=== PATIENT | female | born 1945 | race Caucasian/White ===

== ENCOUNTER 2024-06-21 11:01 | Inpatient (IN) | payer MEDICARE ==
--- NOTE | 2024-06-21 11:13 | ERPHSYRPT ---
- History of Present Illness Time Seen by Provider: 06/21/24 11:13 Source: patient, EMS Exam Limitations: no limitations Patient Subjective Stated Complaint: PT states "I have not felt well since friday and I am just getting weaker and weaker. I get short of breath when I walk." Triage Nursing Assessment: Pt presnted alert and oriented X 3, skin pwd. PT able to speak in clear full sentences. Pt resting comfortably on the bed without any apparent respiratory distress. Physician History: This is a 78-year-old white female patient who arrives by the flight operation coordinator service secondary to generalized weakness and shortness of breath on exertion. Her primary care physician is listed as Dr. Hodge. The records state that the patient has no known drug allergies and she is not taking any medications. Patient denies chest pain. She states that she has had generalized weakness and "not feeling well" x 2 days. She has no abdominal pain. She has had no nausea vomiting or diarrhea symptoms. She denies cough. She denies fever. Patient's initial twelve-lead EKG shows atrial fibrillation with RVR. This is a new diagnosis for her. Timing/Duration: day(s) (2), worse Severity: moderate Associated Symptoms: shortness of breath, weakness (Generalized), No nausea, No vomiting, No abdominal pain, No cough (With exertion), No chest pain, No fever Allergies/Adverse Reactions: No Known Drug Allergies Allergy (Verified 06/21/24 11:12) Home Medications: No Reportable Medications [No Reported Medications] 06/21/24 [History] Hx Tetanus, Diphtheria Vaccination/Date Given: No Hx Influenza Vaccination/Date Given: Yes Hx Pneumococcal Vaccination/Date Given: No Immunizations Up to Date: No Travel Risk - International Travel Have you traveled outside of the country in past 3 weeks: No - Emerging Infectious Disease Are you exhibiting symptoms associated with any current EIDs: No - Review of Systems Constitutional: Weakness (Generalized) Eyes: No Symptoms Ears, Nose, & Throat: No Symptoms Respiratory: No Symptoms Cardiac: No Symptoms Abdominal/Gastrointestinal: No Symptoms Genitourinary Symptoms: No Symptoms Musculoskeletal: No Symptoms Skin: No Symptoms Neurological: No Symptoms Psychological: No Symptoms Endocrine: No Symptoms Hematologic/Lymphatic: No Symptoms - Past Medical History Pertinent Past Medical History: Yes Neurological History: No Pertinent History ENT History: Cataracts Cardiac History: No Pertinent History Respiratory History: No Pertinent History Endocrine Medical History: No Pertinent History Musculoskeletal History: No Pertinent History GI Medical History: No Pertinent History History: No Pertinent History Psycho-Social History: No Pertinent History Female Reproductive Disorders: No Pertinent History - Past Surgical History Past Surgical History: Yes - Social History Smoking Status: Never smoker Exposure to second hand smoke: No Drug Use: none - Social Determinants of Health Will the patient participate in the screening: Declined to provide - Nursing Vital Signs Nursing Vital Signs: Initial Vital Signs Temperature 97.1 F 06/21/24 11:02 Pulse Rate 137 H 06/21/24 11:02 Respiratory Rate 20 06/21/24 11:02 Blood Pressure 114/84 06/21/24 11:02 O2 Sat by Pulse Oximetry 97 06/21/24 11:02 Pain Scale Pain Intensity 0 - Physical Exam General Appearance: mild distress, alert, anxiety Eye Exam: PERRL/EOMI, eyes nml inspection Ears, Nose, Throat Exam: normal ENT inspection, moist mucous membranes Neck Exam: normal inspection, non-tender, supple, full range of motion Respiratory Exam: normal breath sounds, lungs clear, airway intact, No chest tenderness, No respiratory distress Cardiovascular Exam: tachycardia, irregular Gastrointestinal/Abdomen Exam: soft, normal bowel sounds, No tenderness Pelvic Exam: not done Rectal Exam: not done Back Exam: normal inspection, normal range of motion, No CVA tenderness, No vertebral tenderness Extremity Exam: normal inspection, normal range of motion, pelvis stable Neurologic Exam: alert, oriented x 3, cooperative, job interviewer II-XII nml as tested, sensation nml Skin Exam: normal color, warm, dry Lymphatic Exam: No adenopathy SpO2 Interpretation: normal SpO2: 97 O2 Delivery: Nasal Cannula (2 liters oxygen via nasal cannula) - Course Nursing assessment & vital signs reviewed: Yes EKG Interpreted by Me: RATE, A-fib, Left [place] Deviation, NORMAL INTERVALS, NORMAL QRS, Other (I do not see acute ischemia. The QTc is 421. We will slow her heart rate down and repeat the twelve-lead EKG.) Ordered Tests: Active Orders 24 hr Category Date Time Status EKG-ER Only STAT Care 06/21/24 11:31 Active EKG-ER Only STAT Care 06/21/24 15:28 Active EKG-ER Only STAT Care 06/21/24 16:00 Active IV Insertion STAT Care 06/21/24 11:31 Active Pulse Oximetry (ED) STAT Care 06/21/24 11:31 Active CHEST 1 VIEW (PORTABLE) Stat Exams 06/21/24 11:32 Completed CBC W DIFF Stat Lab 06/21/24 12:25 Completed CMP Stat Lab 06/21/24 12:25 Completed CULTURE,URINE Stat Lab 06/21/24 15:49 Received LIPASE Stat Lab 06/21/24 12:25 Completed Lactic Acid Stat Lab 06/21/24 17:05 Completed MAGNESIUM Stat Lab 06/21/24 12:25 Completed Manual Differential NC Stat Lab 06/21/24 12:25 Completed NT PRO BNPII Stat Lab 06/21/24 12:25 Completed POCT GLUCOSE Stat Lab 06/21/24 15:46 Completed PROTIME WITH INR Stat Lab 06/21/24 12:25 Completed TROPONIN Q4H Lab 06/21/24 12:25 Completed TROPONIN Q4H Lab 06/21/24 17:00 Completed TROPONIN Q4H Lab 06/21/24 20:45 Ordered UA W/RFX UR CULTURE Stat Lab 06/21/24 15:49 Completed Medication Summary Generic Name Dose Route Start Last Admin Trade Name Freq PRN Reason Stop Dose Admin Diltiazem HCl 100 mls @ 5 mls/hr 06/21/24 12:11 06/21/24 13:30 Cardizem Drip 100 Mg/100 Ml D5w IV 07/21/24 12:10 0 mg/hr .Q20H PRN 0 mls/hr HEART RATE/ A-FIB Titration Protocol 5 MG/HR Lactated Ringer's 1,000 mls @ 250 mls/hr 06/21/24 17:41 06/21/24 18:35 Lactated Ringers IV 06/21/24 21:40 250 mls/hr .Q4H ONE Administration Discontinued Medications Generic Name Dose Route Start Last Admin Trade Name Freq PRN Reason Stop Dose Admin Diltiazem HCl 15 mg 06/21/24 11:25 06/21/24 11:36 Diltiazem Hcl Iv 5 Mg/Ml Vial IV 06/21/24 11:26 15 mg STAT ONE Administration Diltiazem HCl Confirm 06/21/24 11:23 Diltiazem Hcl Iv 5 Mg/Ml Vial Administered 06/21/24 11:24 Dose 50 mg IV .STK-MED ONE Sodium Chloride 500 mls @ 250 mls/hr 06/21/24 14:53 06/21/24 18:33 Sodium Chloride 0.9% 500 Ml IV 06/21/24 16:52 Infused .Q2H ONE Infusion Sodium Chloride Confirm 06/21/24 14:56 Sodium Chloride 0.9% 500 Ml Administered 06/21/24 14:57 Dose 500 mls @ ud IV .STK-MED ONE Meropenem 1 gm/ Sodium 100 mls @ 200 mls/hr 06/21/24 16:15 06/21/24 18:33 Chloride IV 06/21/24 16:44 Infused STAT ONE Infusion Sodium Chloride Confirm 06/21/24 16:19 Sodium Chloride 100ml Mini-Bag Plus Administered 06/21/24 16:20 Dose 100 mls @ ud IV .STK-MED ONE Lactated Ringer's Confirm 06/21/24 18:33 Lactated Ringers Administered 06/21/24 18:34 Dose 1,000 mls @ ud IV .STK-MED ONE Meropenem Confirm 06/21/24 16:17 Meropenem 1 Gm Vial Administered 06/21/24 16:18 Dose 1 gm IV .STK-MED ONE Metoprolol Tartrate 5 mg 06/21/24 14:53 06/21/24 14:57 Metoprolol Tartrate 5 Mg/5 Ml Vial IV 06/21/24 14:54 5 mg STAT ONE Administration Metoprolol Tartrate Confirm 06/21/24 14:56 Metoprolol Tartrate 5 Mg/5 Ml Vial Administered 06/21/24 14:57 Dose 5 mg IV .STK-MED ONE Ondansetron HCl 4 mg 06/21/24 15:17 06/21/24 15:20 Ondansetron Hcl 4 Mg/2 Ml Vial IV 06/21/24 15:18 4 mg STAT ONE Administration Ondansetron HCl Confirm 06/21/24 15:19 Ondansetron Hcl 4 Mg/2 Ml Vial Administered 06/21/24 15:20 Dose 4 mg .ROUTE .STK-MED ONE Lab/Rad Data: Laboratory Result Diagrams 06/21/24 12:25 06/21/24 12:25 Laboratory Results 06/21/24 06/21/24 06/21/24 Range/Units 17:05 17:00 15:49 WBC (3.98-10.04) x10^3/uL RBC (3.93-5.22) x10^6/uL Hgb (11.2-15.7) g/dL Hct (34.1-44.9) % MCV (79.4-94.8) fL MCH (25.6-32.2) pg MCHC (32.2-35.5) g/dL RDW (11.7-14.4) % Plt Count (182-369) x10^3/uL MPV (9.4-12.3) fL Segmented Neutrophils (34.0-71.1) % Band Neutrophils (0.0-2.0) % Lymphocytes (Manual) (19.3-51.7) % Monocytes (Manual) (4.7-12.5) % Toxic Granulation Platelet Estimate (NORMAL) RBC Morphology Anisocytosis PT (9.4-12.5) SECONDS INR (0.8-3.0) Sodium (135-145) mmol/L Potassium (3.5-5.1) mmol/L Chloride (98-107) mmol/L Carbon Dioxide (22-30) mmol/L Anion Gap (5-15) MEQ/L BUN (7-17) mg/dL Creatinine (0.52-1.04) mg/dL Estimated GFR ML/MIN Glucose (74-106) mg/dL POC Glucometer (74 to 106) mg/dL Lactic Acid 6.6 H (0.4-2.0) Calcium (8.4-10.2) mg/dL Magnesium (1.6-2.3) mg/dL Total Bilirubin (0.2-1.3) mg/dL AST (14-36) U/L ALT (0-35) U/L Alkaline Phosphatase (38-126) U/L Troponin I 0.103 H* (0.000-0.033) ng/mL NT-Pro-B Natriuret Pep (<300) pg/mL Serum Total Protein (6.3-8.2) g/dL Albumin (3.5-5.0) g/dL Lipase (23-300) U/L Urine Color Yellow (Yellow) Urine Appearance Cloudy A (Clear) Urine pH 5.0 (4.6-8.0) Ur Specific [place] 1.025 (1.005-1.030) Urine Protein Trace A (Negative) Urine Glucose (UA) Negative (Negative) mg/dL Urine Ketones Negative (Negative) Urine Blood Trace (Negative) Urine Nitrite Negative (Negative) Urine Bilirubin Negative (Negative) Urine Urobilinogen 0.2 (0.2) mg/dL Ur Leukocyte Esterase Moderate A (Negative) U Hyaline Cast (Auto) 11-20 (0-2) /LPF Urine Microscopic RBC 6-10 A (0-5) /HPF Urine Microscopic WBC >100 A (0-5) /HPF Ur Epithelial Cells None Seen (None Seen) /HPF Urine Bacteria Few A (None Seen) /HPF Urine Culture Reflexed ORDERED SEPARATELY (NO) 06/21/24 06/21/24 06/21/24 Range/Units 15:46 12:25 12:25 WBC (3.98-10.04) x10^3/uL RBC (3.93-5.22) x10^6/uL Hgb (11.2-15.7) g/dL Hct (34.1-44.9) % MCV (79.4-94.8) fL MCH (25.6-32.2) pg MCHC (32.2-35.5) g/dL RDW (11.7-14.4) % Plt Count (182-369) x10^3/uL MPV (9.4-12.3) fL Segmented Neutrophils (34.0-71.1) % Band Neutrophils (0.0-2.0) % Lymphocytes (Manual) (19.3-51.7) % Monocytes (Manual) (4.7-12.5) % Toxic Granulation Platelet Estimate (NORMAL) RBC Morphology Anisocytosis PT 11.2 (9.4-12.5) SECONDS INR 1.03 (0.8-3.0) Sodium (135-145) mmol/L Potassium (3.5-5.1) mmol/L Chloride (98-107) mmol/L Carbon Dioxide (22-30) mmol/L Anion Gap (5-15) MEQ/L BUN (7-17) mg/dL Creatinine (0.52-1.04) mg/dL Estimated GFR ML/MIN Glucose (74-106) mg/dL POC Glucometer 138 H (74 to 106) mg/dL Lactic Acid (0.4-2.0) Calcium (8.4-10.2) mg/dL Magnesium (1.6-2.3) mg/dL Total Bilirubin (0.2-1.3) mg/dL AST (14-36) U/L ALT (0-35) U/L Alkaline Phosphatase (38-126) U/L Troponin I 0.084 H* (0.000-0.033) ng/mL NT-Pro-B Natriuret Pep (<300) pg/mL Serum Total Protein (6.3-8.2) g/dL Albumin (3.5-5.0) g/dL Lipase (23-300) U/L Urine Color (Yellow) Urine Appearance (Clear) Urine pH (4.6-8.0) Ur Specific [place] (1.005-1.030) Urine Protein (Negative) Urine Glucose (UA) (Negative) mg/dL Urine Ketones (Negative) Urine Blood (Negative) Urine Nitrite (Negative) Urine Bilirubin (Negative) Urine Urobilinogen (0.2) mg/dL Ur Leukocyte Esterase (Negative) U Hyaline Cast (Auto) (0-2) /LPF Urine Microscopic RBC (0-5) /HPF Urine Microscopic WBC (0-5) /HPF Ur Epithelial Cells (None Seen) /HPF Urine Bacteria (None Seen) /HPF Urine Culture Reflexed (NO) 06/21/24 06/21/24 Range/Units 12:25 12:25 WBC 14.9 H (3.98-10.04) x10^3/uL RBC 6.28 H (3.93-5.22) x10^6/uL Hgb 17.6 H (11.2-15.7) g/dL Hct 56.2 H (34.1-44.9) % MCV 89.5 (79.4-94.8) fL MCH 28.0 (25.6-32.2) pg MCHC 31.3 L (32.2-35.5) g/dL RDW 14.5 H (11.7-14.4) % Plt Count 240 (182-369) x10^3/uL MPV 10.6 (9.4-12.3) fL Segmented Neutrophils 86 H (34.0-71.1) % Band Neutrophils 2 (0.0-2.0) % Lymphocytes (Manual) 6 L (19.3-51.7) % Monocytes (Manual) 6 (4.7-12.5) % Toxic Granulation 1+ Platelet Estimate NORMAL (NORMAL) RBC Morphology ABNORMAL Anisocytosis 1+ PT (9.4-12.5) SECONDS INR (0.8-3.0) Sodium 135 (135-145) mmol/L Potassium 5.0 (3.5-5.1) mmol/L Chloride 104 (98-107) mmol/L Carbon Dioxide 13 L* (22-30) mmol/L Anion Gap 22.7 H (5-15) MEQ/L BUN 51 H (7-17) mg/dL Creatinine 1.06 H (0.52-1.04) mg/dL Estimated GFR 54.4 ML/MIN Glucose 149 H (74-106) mg/dL POC Glucometer (74 to 106) mg/dL Lactic Acid (0.4-2.0) Calcium 9.0 (8.4-10.2) mg/dL Magnesium 2.1 (1.6-2.3) mg/dL Total Bilirubin 0.80 (0.2-1.3) mg/dL AST 51 H (14-36) U/L ALT 32 (0-35) U/L Alkaline Phosphatase 71 (38-126) U/L Troponin I (0.000-0.033) ng/mL NT-Pro-B Natriuret Pep 1870 (<300) pg/mL Serum Total Protein 7.0 (6.3-8.2) g/dL Albumin 3.7 (3.5-5.0) g/dL Lipase 89 (23-300) U/L Urine Color (Yellow) Urine Appearance (Clear) Urine pH (4.6-8.0) Ur Specific [place] (1.005-1.030) Urine Protein (Negative) Urine Glucose (UA) (Negative) mg/dL Urine Ketones (Negative) Urine Blood (Negative) Urine Nitrite (Negative) Urine Bilirubin (Negative) Urine Urobilinogen (0.2) mg/dL Ur Leukocyte Esterase (Negative) U Hyaline Cast (Auto) (0-2) /LPF Urine Microscopic RBC (0-5) /HPF Urine Microscopic WBC (0-5) /HPF Ur Epithelial Cells (None Seen) /HPF Urine Bacteria (None Seen) /HPF Urine Culture Reflexed (NO) - Progress Progress: improved, re-examined Progress Note: 06/21/24 11:43 My medical decision making and the assignment of high complexity to this patient's medical issue today is based on review of the patient's past medical history, review of the patient's medication list, review of patient drug allergy list, history present illness and physical findings on examination. The workup in this patient includes placement of a intravenous line, infusion of Cardizem 15 mg IV bolus, CBC, CMP, magnesium level, urinalysis, twelve-lead EKG, BNP, tr oponin level and chest x-ray. Differential diagnosis includes but not limited to new onset atrial fibrillation with RVR, urinary tract infection, dehydration, electrolyte abnormalities, myocardial infarction, arrhythmia 06/21/24 15:40 I reevaluated the patient as she suddenly became diaphoretic. She continues not to have chest pain. She is not short of breath. She does feel as though she is sweaty and a little lightheaded. This seemed to occur after providing her with a low-dose Lopressor intravenously. We added that medication and decrease the Cardizem drip because, although the Cardizem bolus and drip did lower her heart rate from the 130s down to the low to mid 110s, there were spikes up to the mid 20s. The metoprolol dropped her heart rate down into the 80s to 90s. She has rate controlled atrial fibrillation at this time. However the above symptoms began. She continues not to have any chest pain. We are awaiting the troponin result. The blood pressure reading while I was in there measured 104/74. I interpreted the repeat twelve-lead EKG that was performed on 06/21/2024 at 1528. The computer reads as anterior infarct possibly acute I am not appreciating an acute ischemia in V4 V3 does not appear to have ST elevation.. We are providing this patient with an IV bolus and I will repeat the twelve-lead EKG in approximately 15 to 20 minutes. 06/21/24 16:13 I reexamined this patient and obtain more history and she did tell me that she has seen a chief catalyst operator in the past. Not for heart attack but the patient does have a history of scleroderma and she saw a chief catalyst operator because her primary care provider felt there may be an issue with her scleroderma causing some cardiac symptoms. 06/21/24 16:14 The final report of the chest x-ray was interpreted by the radiologist and I reviewed the impression. The impression states no acute cardiopulmonary process. 06/21/24 18:53 I spoke with the telemetry hospitalist, Dr. Quiros. I reviewed the patient history, presenting complaint, physical findings on examination and workup results. I also reviewed the patient clinical response to our interventions. We will admit this patient into the hospital [facility]. The patient is not requiring Cardizem or metoprolol at this time. I believe she is septic and she will require IV fluids and intravenous antibiotics. We will continue the meropenem. Her troponins are likely the result of the A-fib with RVR. The patient does not have chest pain. She has had 3 EKGs performed and the most recent twelve-lead EKG shows atrial fibrillation that is rate controlled. I interpreted that twelve-lead EKG which is her third EKG on 06/21/2024 at 1629. Her heart rate is 90 the rhythm is atrial fibrillation she has no acute ischemic changes. She has normal QRS, normal intervals and normal axis deviation with a QTc of 421. Discussed with : Darrick Counseled pt/family regarding: lab results, diagnosis, rad results Medical Desision Making - Independent Historian Additional History obtained from: [employer] Team Leader/EMT - Diagnostic Testing Diagnostic test were ordered, analyzed, and reviewed by me: Yes Radiological Interpretation: Reviewed by me, Teleradiologist Report - Risk of complications The pt has a high risk of morbidity or mortality based on: Decision regarding hospitilization or escalation of hosp level of care - Departure Departure Disposition: In-patient Admission Clinical Impression: Atrial fibrillation with RVR, Sepsis, UTI (urinary tract infection), Elevated troponin, Leukocytosis Condition: Serious Critical Care Time: Yes Critical Care Time(excluding separately billable procedures): Critical 30-74 mins (60) Referrals: DANA HODGE MD [Primary Care Provider] - Follow up/PCP as directed
[2024-06-21] MEDS ORDERED: Cardizem IV 50 MG/10 ML IV ONE (11:23)
[2024-06-21] MEDS: Cardizem IV 50 MG/10 ML IV ONE (11:36)
--- NOTE | 2024-06-21 12:05 | XRAY ---
Indication: Weakness. Comparison: None Portable chest hyperinflated and clear with incidental right base calcified granuloma. Heart not enlarged. Bony thorax intact. No acute findings.
[2024-06-21 12:40] LABS: Hematocrit 56.2 % (34.1-44.9); Hemoglobin 17.6 g/dL (11.2-15.7); Mean Cell Volume 89.5 fL (79.4-94.8); Mean Corpuscular Hgb Concent. 31.3 g/dL (32.2-35.5); Mean Platelet Volume 10.6 fL (9.4-12.3); Platelet Count 240 x10^3/uL (182-369); Red Blood Count 6.28 x10^6/uL (3.93-5.22); Red Cell Distribution Width 14.5 % (11.7-14.4); White Blood Count 14.9 x10^3/uL (3.98-10.04)
[2024-06-21] MEDS ORDERED: CARDIZEM DRIP 100 MG/100 ML D5W 100 ML IV ONE (12:42)
[2024-06-21] MEDS: CARDIZEM DRIP 100 MG/100 ML D5W 100 ML IV PRN (12:42)
[2024-06-21 12:55] LABS: INR 1.03 (0.8-3.0); PROTIME 11.2 SECONDS (9.4-12.5)
[2024-06-21 13:06] LABS: ALBUMIN 3.7 g/dL (3.5-5.0); ANION GAP 22.7 MEQ/L (5-15); BILIRUBIN,TOTAL 0.8 mg/dL (0.2-1.3); Creatinine 1 1.06 mg/dL (0.52-1.04); EST GLOMERULAR FILTRATION RATE 54.4 ML/MIN; MAGNESIUM 2.1 mg/dL (1.6-2.3)
[2024-06-21 13:09] LABS: BAND 2 % (0.0-2.0); Lymphocytes 6 % (19.3-51.7); Monocyte 6 % (4.7-12.5); Neutrophils 86 % (34.0-71.1); Total Cells Counted 100
[2024-06-21 13:10] LABS: ANISOCYTOSIS 1+; Platelet Estimate NORMAL (NORMAL); Toxic Granulation 1+
[2024-06-21] MEDS ORDERED: LOPRESSOR INJECTION IV ONE (14:56)
[2024-06-21] MEDS ORDERED: Sodium Chloride 0.9% 500 ML 500 ML IV ONE (14:56)
[2024-06-21] MEDS: LOPRESSOR INJECTION IV ONE (14:57)
[2024-06-21] MEDS: Sodium Chloride 0.9% 500 ML 500 ML IV ONE (14:57)
[2024-06-21] MEDS ORDERED: Zofran 4 MG/2 ML VIAL ONE (15:19)
[2024-06-21] MEDS: Zofran 4 MG/2 ML VIAL IV ONE (15:20)
[2024-06-21 16:12] LABS: Appearance Cloudy (Clear); Bacteria Few /HPF (None Seen); Bilirubin Negative (Negative); Blood Trace (Negative); Epithelial Cells None Seen /HPF (None Seen); Glucose, Urine Negative (Negative); Ketones Negative (Negative); Leukocyte Esterase Moderate (Negative); Nitrite Negative (Negative); Protein,Urine Dip Trace (Negative); Specific Gravity 1.025 (1.005-1.030); Urobilinogen 0.2 mg/dL (0.2); WBC >100 /HPF (0-5)
[2024-06-21] MEDS ORDERED: Merrem IV ONE ×2 (16:17→21:57)
[2024-06-21] MEDS ORDERED: Sodium Chloride 100ML MINI-BAG PLUS 100 ML IV ONE ×2 (16:19→21:59)
[2024-06-21] MEDS: Merrem 1 GM in Sodium Chloride 100ML MINI-BAG PLUS 100 ML IV ONE (16:23)
[2024-06-21] MEDS ORDERED: Lactated Ringers 1,000 ML IV ONE (18:33)
[2024-06-21] MEDS: Lactated Ringers 1,000 ML IV ONE (18:35)
[2024-06-21] MEDS ORDERED: Zofran 4 MG/2 ML VIAL IV PRN (21:12)
[2024-06-21] MEDS: Merrem 1 GM in Sodium Chloride 100ML MINI-BAG PLUS 100 ML IV SCH (22:06)
[2024-06-21] MEDS: TYLENOL 325 MG PO PRN (22:18)
[2024-06-21] MEDS: Lopressor 25MG Tab PO SCH (22:18)
[2024-06-21] MEDS: ENOXAPARIN SODIUM SQ SCH (22:19)
--- NOTE | 2024-06-21 22:24 | PCM.HP ---
History of Present Illness - Chief Complaint Chief Complaint: UTI, atrial fibrillation Date: 06/21/24 History of Present Illness: is a 78 year old female with a history of scleroderma (not currently following with a grizzlyman) and no cardiac history who presented to the ED with generalized weakness and shortness of breath on exertion for 2 days. Patient denied chest pain, abdominal pain, nausea, vomiting, diarrhea, cough, or fever. In the ED, the initial twelve-lead EKG showed atrial fibrillation with RVR which improved after administration of Cardizem. She was also found to have a UTI. She denies recent dysuria, pyuria, or hematuria. - Review of Systems Constitutional: Malaise Eyes: No Symptoms Ears, Nose, & Throat: No Symptoms Respiratory: Short Of Breath Cardiac: No Symptoms Abdominal/Gastrointestinal: No Symptoms Genitourinary Symptoms: No Symptoms Musculoskeletal: No Symptoms Skin: No Symptoms Neurological: No Symptoms Psychological: No Symptoms Endocrine: No Symptoms Hematologic/Lymphatic: No Symptoms Immunological/Allergic: No Symptoms All Other Systems: Reviewed and Negative Medications & Allergies Home Medications: Home Medication List No Reportable Medications [No Reported Medications] 06/21/24 [History Confirmed 06/21/24] Allergies/Adverse Reactions: Allergies Allergy/AdvReac Type Severity Reaction Status Date / Time No Known Drug Allergies Allergy Verified 06/21/24 11:12 - Past Medical History Past Medical History: Yes Neurological History: No Pertinent History ENT History: Cataracts Cardiac History: No Pertinent History Respiratory History: No Pertinent History Endocrine Medical History: No Pertinent History Musculoskelatal History: No Pertinent History GI Medical History: No Pertinent History History: No Pertinent History Pyscho-Social History: No Pertinent History Reproductive Disorders: No Pertinent History - Past Surgical History Past Surgical History: Yes Significant Family History: no pertinent family hx - Social History Smoking Status: Never smoker Exposure to second hand smoke: No Alcohol: None Drug Use: none - Social Determinants of Health Will the patient participate in the screening: Declined to provide - Physical Exam Vital Signs: Vital Signs - 24 hr Temp Pulse Resp BP BP Pulse Ox 06/21/24 20:01 98 H 47 H 122/74 99 06/21/24 20:00 104 H 37 H 97 06/21/24 19:50 110 H 27 H 06/21/24 19:43 112 H 25 H 122/74 99 06/21/24 19:31 106 H 23 119/71 80 L 06/21/24 19:30 111 H 24 71 L 06/21/24 19:22 107 H 38 H 06/21/24 19:10 105 H 43 H 114/93 06/21/24 19:05 97 06/21/24 19:00 118 H 40 H 138/105 76 L 06/21/24 18:50 98 H 35 H 140/97 86 L 06/21/24 18:30 96 H 28 H 105/77 82 L 06/21/24 18:20 103 H 32 H 139/96 98 06/21/24 18:10 106 H 46 H 120/98 97 06/21/24 18:00 108 H 24 134/98 99 06/21/24 17:50 98 H 25 H 125/79 91 L 06/21/24 17:40 48 H 115/92 06/21/24 17:30 28 H 129/98 98 06/21/24 17:20 17 137/78 79 L 06/21/24 17:14 26 H 128/81 67 L 06/21/24 17:11 31 H 76 L 06/21/24 17:10 26 H 85 L 06/21/24 17:00 95 H 19 06/21/24 16:53 113 H 28 H 99 06/21/24 16:40 97 H 25 H 137/117 06/21/24 16:31 84 29 H 117/60 06/21/24 16:21 94 H 21 85 L 06/21/24 16:10 87 27 H 111/81 89 L 06/21/24 16:01 91 H 28 H 129/86 96 06/21/24 15:53 85 19 113/61 74 L 06/21/24 15:51 69 23 61 L 06/21/24 15:39 72 26 H 104/74 06/21/24 15:34 67 22 06/21/24 15:31 87 23 93/66 62 L 06/21/24 15:30 102 H 20 06/21/24 15:20 83 26 H 06/21/24 15:13 76 27 H 06/21/24 15:00 71 23 129/87 100 06/21/24 14:51 119 H 24 99 06/21/24 14:50 96 H 23 82/65 99 06/21/24 14:41 126 H 18 99 06/21/24 14:39 112 H 18 113/89 100 06/21/24 14:34 125 H 33 H 99 06/21/24 14:31 116 H 21 88/69 90 L 06/21/24 14:16 119 H 22 127/83 99 06/21/24 14:00 122 H 20 98/83 98 06/21/24 13:30 129 H 22 144/87 99 06/21/24 13:01 128 H 22 97 06/21/24 12:30 121 H 22 115/91 06/21/24 12:00 111 H 29 H 113/81 76 L 06/21/24 11:53 97 06/21/24 11:41 110 H 17 95/68 98 06/21/24 11:09 116 H 25 H 114/84 96 06/21/24 11:02 97.1 F 137 H 20 114/84 97 General Appearance: no apparent distress, alert Neurologic Exam: alert, oriented x 3, cooperative, 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, normal mood/affect, nml cerebellar function Eye Exam: PERRL/EOMI, eyes nml inspection Ears, Nose, Throat Exam: normal ENT inspection Neck Exam: normal inspection, non-tender, supple, full range of motion Respiratory Exam: normal breath sounds, lungs clear, airway intact Cardiovascular Exam: irregular Gastrointestinal/Abdomen Exam: soft, normal bowel sounds Back Exam: normal range of motion Extremity Exam: normal inspection, normal range of motion Skin Exam: normal color Results - Labs Lab/Micro Results: Lab Results-Last 24 Hours 06/21/24 06/21/24 06/21/24 Range/Units 12:25 12:25 12:25 WBC 14.9 H (3.98-10.04) x10^3/uL RBC 6.28 H (3.93-5.22) x10^6/uL Hgb 17.6 H (11.2-15.7) g/dL Hct 56.2 H (34.1-44.9) % MCV 89.5 (79.4-94.8) fL MCH 28.0 (25.6-32.2) pg MCHC 31.3 L (32.2-35.5) g/dL RDW 14.5 H (11.7-14.4) % Plt Count 240 (182-369) x10^3/uL MPV 10.6 (9.4-12.3) fL Segmented Neutrophils 86 H (34.0-71.1) % Band Neutrophils 2 (0.0-2.0) % Lymphocytes (Manual) 6 L (19.3-51.7) % Monocytes (Manual) 6 (4.7-12.5) % Toxic Granulation 1+ Platelet Estimate NORMAL (NORMAL) RBC Morphology ABNORMAL Anisocytosis 1+ PT 11.2 (9.4-12.5) SECONDS INR 1.03 (0.8-3.0) Sodium 135 (135-145) mmol/L Potassium 5.0 (3.5-5.1) mmol/L Chloride 104 (98-107) mmol/L Carbon Dioxide 13 L* (22-30) mmol/L Anion Gap 22.7 H (5-15) MEQ/L BUN 51 H (7-17) mg/dL Creatinine 1.06 H (0.52-1.04) mg/dL Estimated GFR 54.4 ML/MIN Glucose 149 H (74-106) mg/dL POC Glucometer (74 to 106) mg/dL Lactic Acid (0.4-2.0) Calcium 9.0 (8.4-10.2) mg/dL Magnesium 2.1 (1.6-2.3) mg/dL Total Bilirubin 0.80 (0.2-1.3) mg/dL AST 51 H (14-36) U/L ALT 32 (0-35) U/L Alkaline Phosphatase 71 (38-126) U/L Troponin I (0.000-0.033) ng/mL NT-Pro-B Natriuret Pep 1870 (<300) pg/mL Serum Total Protein 7.0 (6.3-8.2) g/dL Albumin 3.7 (3.5-5.0) g/dL Lipase 89 (23-300) U/L Urine Color (Yellow) Urine Appearance (Clear) Urine pH (4.6-8.0) Ur Specific [place] (1.005-1.030) Urine Protein (Negative) Urine Glucose (UA) (Negative) mg/dL Urine Ketones (Negative) Urine Blood (Negative) Urine Nitrite (Negative) Urine Bilirubin (Negative) Urine Urobilinogen (0.2) mg/dL Ur Leukocyte Esterase (Negative) U Hyaline Cast (Auto) (0-2) /LPF Urine Microscopic RBC (0-5) /HPF Urine Microscopic WBC (0-5) /HPF Ur Epithelial Cells (None Seen) /HPF Urine Bacteria (None Seen) /HPF Urine Culture Reflexed (NO) 06/21/24 06/21/24 06/21/24 Range/Units 12:25 15:46 15:49 WBC (3.98-10.04) x10^3/uL RBC (3.93-5.22) x10^6/uL Hgb (11.2-15.7) g/dL Hct (34.1-44.9) % MCV (79.4-94.8) fL MCH (25.6-32.2) pg MCHC (32.2-35.5) g/dL RDW (11.7-14.4) % Plt Count (182-369) x10^3/uL MPV (9.4-12.3) fL Segmented Neutrophils (34.0-71.1) % Band Neutrophils (0.0-2.0) % Lymphocytes (Manual) (19.3-51.7) % Monocytes (Manual) (4.7-12.5) % Toxic Granulation Platelet Estimate (NORMAL) RBC Morphology Anisocytosis PT (9.4-12.5) SECONDS INR (0.8-3.0) Sodium (135-145) mmol/L Potassium (3.5-5.1) mmol/L Chloride (98-107) mmol/L Carbon Dioxide (22-30) mmol/L Anion Gap (5-15) MEQ/L BUN (7-17) mg/dL Creatinine (0.52-1.04) mg/dL Estimated GFR ML/MIN Glucose (74-106) mg/dL POC Glucometer 138 H (74 to 106) mg/dL Lactic Acid (0.4-2.0) Calcium (8.4-10.2) mg/dL Magnesium (1.6-2.3) mg/dL Total Bilirubin (0.2-1.3) mg/dL AST (14-36) U/L ALT (0-35) U/L Alkaline Phosphatase (38-126) U/L Troponin I 0.084 H* (0.000-0.033) ng/mL NT-Pro-B Natriuret Pep (<300) pg/mL Serum Total Protein (6.3-8.2) g/dL Albumin (3.5-5.0) g/dL Lipase (23-300) U/L Urine Color Yellow (Yellow) Urine Appearance Cloudy A (Clear) Urine pH 5.0 (4.6-8.0) Ur Specific [place] 1.025 (1.005-1.030) Urine Protein Trace A (Negative) Urine Glucose (UA) Negative (Negative) mg/dL Urine Ketones Negative (Negative) Urine Blood Trace (Negative) Urine Nitrite Negative (Negative) Urine Bilirubin Negative (Negative) Urine Urobilinogen 0.2 (0.2) mg/dL Ur Leukocyte Esterase Moderate A (Negative) U Hyaline Cast (Auto) 11-20 (0-2) /LPF Urine Microscopic RBC 6-10 A (0-5) /HPF Urine Microscopic WBC >100 A (0-5) /HPF Ur Epithelial Cells None Seen (None Seen) /HPF Urine Bacteria Few A (None Seen) /HPF Urine Culture Reflexed ORDERED SEPARATELY (NO) 06/21/24 06/21/24 06/21/24 Range/Units 17:00 17:05 19:50 WBC (3.98-10.04) x10^3/uL RBC (3.93-5.22) x10^6/uL Hgb (11.2-15.7) g/dL Hct (34.1-44.9) % MCV (79.4-94.8) fL MCH (25.6-32.2) pg MCHC (32.2-35.5) g/dL RDW (11.7-14.4) % Plt Count (182-369) x10^3/uL MPV (9.4-12.3) fL Segmented Neutrophils (34.0-71.1) % Band Neutrophils (0.0-2.0) % Lymphocytes (Manual) (19.3-51.7) % Monocytes (Manual) (4.7-12.5) % Toxic Granulation Platelet Estimate (NORMAL) RBC Morphology Anisocytosis PT (9.4-12.5) SECONDS INR (0.8-3.0) Sodium (135-145) mmol/L Potassium (3.5-5.1) mmol/L Chloride (98-107) mmol/L Carbon Dioxide (22-30) mmol/L Anion Gap (5-15) MEQ/L BUN (7-17) mg/dL Creatinine (0.52-1.04) mg/dL Estimated GFR ML/MIN Glucose (74-106) mg/dL POC Glucometer (74 to 106) mg/dL Lactic Acid 6.6 H (0.4-2.0) Calcium (8.4-10.2) mg/dL Magnesium (1.6-2.3) mg/dL Total Bilirubin (0.2-1.3) mg/dL AST (14-36) U/L ALT (0-35) U/L Alkaline Phosphatase (38-126) U/L Troponin I 0.103 H* 0.086 H* (0.000-0.033) ng/mL NT-Pro-B Natriuret Pep (<300) pg/mL Serum Total Protein (6.3-8.2) g/dL Albumin (3.5-5.0) g/dL Lipase (23-300) U/L Urine Color (Yellow) Urine Appearance (Clear) Urine pH (4.6-8.0) Ur Specific [place] (1.005-1.030) Urine Protein (Negative) Urine Glucose (UA) (Negative) mg/dL Urine Ketones (Negative) Urine Blood (Negative) Urine Nitrite (Negative) Urine Bilirubin (Negative) Urine Urobilinogen (0.2) mg/dL Ur Leukocyte Esterase (Negative) U Hyaline Cast (Auto) (0-2) /LPF Urine Microscopic RBC (0-5) /HPF Urine Microscopic WBC (0-5) /HPF Ur Epithelial Cells (None Seen) /HPF Urine Bacteria (None Seen) /HPF Urine Culture Reflexed (NO) 06/21/24 Range/Units 22:11 WBC (3.98-10.04) x10^3/uL RBC (3.93-5.22) x10^6/uL Hgb (11.2-15.7) g/dL Hct (34.1-44.9) % MCV (79.4-94.8) fL MCH (25.6-32.2) pg MCHC (32.2-35.5) g/dL RDW (11.7-14.4) % Plt Count (182-369) x10^3/uL MPV (9.4-12.3) fL Segmented Neutrophils (34.0-71.1) % Band Neutrophils (0.0-2.0) % Lymphocytes (Manual) (19.3-51.7) % Monocytes (Manual) (4.7-12.5) % Toxic Granulation Platelet Estimate (NORMAL) RBC Morphology Anisocytosis PT (9.4-12.5) SECONDS INR (0.8-3.0) Sodium (135-145) mmol/L Potassium (3.5-5.1) mmol/L Chloride (98-107) mmol/L Carbon Dioxide (22-30) mmol/L Anion Gap (5-15) MEQ/L BUN (7-17) mg/dL Creatinine (0.52-1.04) mg/dL Estimated GFR ML/MIN Glucose (74-106) mg/dL POC Glucometer (74 to 106) mg/dL Lactic Acid 5.6 H (0.4-2.0) Calcium (8.4-10.2) mg/dL Magnesium (1.6-2.3) mg/dL Total Bilirubin (0.2-1.3) mg/dL AST (14-36) U/L ALT (0-35) U/L Alkaline Phosphatase (38-126) U/L Troponin I (0.000-0.033) ng/mL NT-Pro-B Natriuret Pep (<300) pg/mL Serum Total Protein (6.3-8.2) g/dL Albumin (3.5-5.0) g/dL Lipase (23-300) U/L Urine Color (Yellow) Urine Appearance (Clear) Urine pH (4.6-8.0) Ur Specific [place] (1.005-1.030) Urine Protein (Negative) Urine Glucose (UA) (Negative) mg/dL Urine Ketones (Negative) Urine Blood (Negative) Urine Nitrite (Negative) Urine Bilirubin (Negative) Urine Urobilinogen (0.2) mg/dL Ur Leukocyte Esterase (Negative) U Hyaline Cast (Auto) (0-2) /LPF Urine Microscopic RBC (0-5) /HPF Urine Microscopic WBC (0-5) /HPF Ur Epithelial Cells (None Seen) /HPF Urine Bacteria (None Seen) /HPF Urine Culture Reflexed (NO) - Radiology Impressions Radiology Exams & Impressions: Radiology Procedures Category Date Time Status CHEST 1 VIEW (PORTABLE) Stat Exams 06/21/24 11:32 Completed ECHO W/2D AND DOPPLER [US] Routine Exams 06/21/24 21:54 Ordered - Other Procedures and Tests Respiratory Therapy 06/21/24 21:12 EKG REPEAT IN AM Assessment/Plan (1) Atrial fibrillation with RVR Current Visit: Yes Status: Acute Assessment & Plan: New onset atrial fibrillation. Monitor on telemetry. Initiate Lovenox full dose for now and will consult cardiology in AM for further recommendations. Will place on metoprolol BID. Troponin will be trended with a repeat AM EKG and will be placed on ASA 81 mg daily for now. No chest pain. Will obtain ECHO. Code(s): I48.91 - UNSPECIFIED ATRIAL FIBRILLATION (2) Sepsis Current Visit: Yes Status: Acute Assessment & Plan: As a result of UTI, present on admission. IV antibiotics. (3) UTI (urinary tract infection) Current Visit: Yes Status: Acute Assessment & Plan: IV antibiotics. Follow culture results. Code(s): N39.0 - URINARY TRACT INFECTION, SITE NOT SPECIFIED (4) Elevated troponin Current Visit: Yes Status: Acute Assessment & Plan: As above, will place on ASA 81 mg and monitor on telemetry with a repeat AM EKG. Code(s): R79.89 - OTHER SPECIFIED ABNORMAL FINDINGS OF BLOOD CHEMISTRY (5) Leukocytosis Current Visit: Yes Status: Acute Assessment & Plan: Likely due to UTI. Antibiotics. Trend WBC. Code(s): D72.829 - ELEVATED WHITE BLOOD CELL COUNT, UNSPECIFIED Telemedicine Encounter - Telemedicine Encounter Telemedicine Encounter: "The entirety of this encounter was performed via Telemedicine" This visit was performed using real-time audio and video connection between my location and thepatients locationwith the assistance of a surrogateat the patients location. Written or verbal consent was obtained from the patient/guardian to perform this visit usingPG[employer] Corporationmedicine technology. Any patient questions regarding the telemedicine interaction were answered. Please note that this admission required 42 minutes to complete.
[2024-06-22] MEDS ORDERED: Sodium Chloride 100ML MINI-BAG PLUS 100 ML IV ONE (03:27)
[2024-06-22] MEDS ORDERED: Merrem IV ONE (03:27)
[2024-06-22 05:16] LABS: Absolute Neutrophil Ct (ANC) 12.58 x10^3/uL (1.56-6.13); BASOPHIL % 0.2 % (0.1-1.2); Basophil (Absolute #) 0.03 x10^3/uL (0.01-0.08); Eosinophil (Absolute #) 0 x10^3/uL (0.04-0.36); Hematocrit 50.5 % (34.1-44.9); Hemoglobin 16.5 g/dL (11.2-15.7); IMMATURE GRAN # 0.11 x10^3u/L (0.001-0.031); IMMATURE GRAN % 0.7 % (0.001-0.429); Mean Cell Volume 85.9 fL (79.4-94.8); Mean Corpuscular Hemoglobin 28.1 pg (25.6-32.2); Mean Corpuscular Hgb Concent. 32.7 g/dL (32.2-35.5); Mean Platelet Volume 11.2 fL (9.4-12.3); Monocyte (Absolute #) 1.73 x10^3/uL (0.24-0.86); Monocytes % 10.8 % (4.7-12.5); Neutrophil % 78.3 % (34.0-71.1); Platelet Count 193 x10^3/uL (182-369); Red Blood Count 5.88 x10^6/uL (3.93-5.22); Red Cell Distribution Width 14.6 % (11.7-14.4); White Blood Count 16.1 x10^3/uL (3.98-10.04)
[2024-06-22 05:59] LABS: Slide Review 1 YES
[2024-06-22] MEDS: Lactated Ringers 1,000 ML IV SCH (06:52)
[2024-06-22 09:00] LABS: ALBUMIN 3.5 g/dL (3.5-5.0); ANION GAP 24.5 MEQ/L (5-15); BILIRUBIN,TOTAL 0.7 mg/dL (0.2-1.3); Calcium 8.8 mg/dL (8.4-10.2); Creatinine 1 1.01 mg/dL (0.52-1.04); EST GLOMERULAR FILTRATION RATE 57.7 ML/MIN; Potassium 4.8 mmol/L (3.5-5.1); TSH, 3RD Generation 1.358 mIU/L (0.470-4.680); Total Protein 6.5 g/dL (6.3-8.2)
[2024-06-22] MEDS ORDERED: BABY ASPIRIN 81 MG CHEW PO SCH (10:00)
[2024-06-22] MEDS: ECOTRIN 81 MG PO SCH (10:15)
[2024-06-22] MEDS: Acidophilus TABLET PO SCH (10:15)
[2024-06-22] MEDS: Lopressor 50 MG PO SCH (10:15)
--- NOTE | 2024-06-22 10:17 | PCM.CONS ---
History of Present Illness - Date of Consult Date of Encounter: 06/22/24 Consulting Mild Disabilities Teacher: ELDER MARQUEZ MD Requesting Provider: Attending Provider: ELIZABETH LARES MD Primary Care Provider: PCP: DANA SALDAÑA V - Consult Narrative Reason for Consult: new onset afib HPI: 78 year old female with a history of scleroderma and no cardiac history who presented to the ED with weakness and shortness of breath, symptoms going on for 2 days but got worse prior to admission. Denies chest pain, abdominal pain, nausea, vomiting, diarrhea, cough, or fever, orthopnea. EKG in the ED showed atrial fibrillation with RVR which improved after getting Cardizem. She was also found to have a UTI. She denies urinary symptoms including recent dysuria, pyuria, or hematuria. Patient denies reflux symptoms, belly pain, dysuria, hematuria, melena, hematochezia, seizures, paralysis, or other neurological changes. All other systems have been reviewed and are negative. cc:: The requesting physician will be sent a copy of the consult. Review of Systems - Review of Systems All systems: as per HPI - Past Medical History Past Medical History: Yes Neurological History: No Pertinent History ENT History: Cataracts Cardiac History: No Pertinent History Respiratory History: No Pertinent History Endocrine Medical History: No Pertinent History Musculoskelatal History: No Pertinent History GI Medical History: No Pertinent History History: No Pertinent History Pyscho-Social History: No Pertinent History Reproductive Disorders: No Pertinent History - Past Surgical History Past Surgical History: Yes Significant Family History: no pertinent family hx - Social History Smoking Status: Never smoker Exposure to second hand smoke: No Alcohol: None Drug Use: none - Social Determinants of Health Will the patient participate in the screening: Declined to provide Do you worry about a steady place to live?: No Do you have any problems with any of the following?: No known problems In the past 12 months,have you had to go without utilities?: No Have you or anyone in your house had to go without enough: No Transportation Issues: No Has anyone in your support network made you feel unsafe?: No Does the patient want assistance with any of the above?: No Medications & Allergies Home Medications: Home Medication List No Reportable Medications [No Reported Medications] 06/21/24 [History Confirmed 06/21/24] Allergies/Adverse Reactions: Allergies Allergy/AdvReac Type Severity Reaction Status Date / Time No Known Drug Allergies Allergy Verified 06/21/24 11:12 Exam - Vitals Vital Signs: Vital Signs - 24 hr Temp Pulse Resp BP BP Pulse Ox 06/22/24 09:24 118 H 20 178/86 97 06/22/24 09:17 112 H 24 06/22/24 09:10 111 H 6 L 06/22/24 09:00 121 H 6 L 06/22/24 08:50 115 H 0 L 06/22/24 08:40 126 H 18 06/22/24 08:30 133 H 16 06/22/24 08:20 116 H 24 06/22/24 08:10 122 H 19 06/22/24 08:00 104 H 11 L 06/22/24 07:50 111 H 13 06/22/24 07:40 110 H 7 L 96 06/22/24 07:30 124 H 12 97 06/22/24 07:25 97.2 F 113 H 17 134/74 94 L 06/22/24 04:00 97 F 110 H 16 111/60 94 L 06/22/24 00:00 97.4 F 121 H 18 118/62 06/21/24 22:52 95 06/21/24 22:00 97 F 113 H 18 116/56 94 L 06/21/24 20:30 121/100 06/21/24 20:21 116 H 18 109/70 96 06/21/24 20:10 122 H 48 H 142/100 99 06/21/24 20:01 118 H 21 122/74 99 06/21/24 20:00 104 H 37 H 97 06/21/24 19:50 110 H 27 H 06/21/24 19:43 112 H 25 H 122/74 99 06/21/24 19:31 106 H 23 119/71 80 L 06/21/24 19:30 111 H 24 71 L 06/21/24 19:22 107 H 38 H 06/21/24 19:10 105 H 43 H 114/93 06/21/24 19:05 97 06/21/24 19:00 118 H 40 H 138/105 76 L 06/21/24 18:50 98 H 35 H 140/97 86 L 06/21/24 18:30 96 H 28 H 105/77 82 L 06/21/24 18:20 103 H 32 H 139/96 98 06/21/24 18:10 106 H 46 H 120/98 97 06/21/24 18:00 108 H 24 134/98 99 06/21/24 17:50 98 H 25 H 125/79 91 L 06/21/24 17:40 48 H 115/92 06/21/24 17:30 28 H 129/98 98 06/21/24 17:20 17 137/78 79 L 06/21/24 17:14 26 H 128/81 67 L 06/21/24 17:11 31 H 76 L 06/21/24 17:10 26 H 85 L 06/21/24 17:00 95 H 19 06/21/24 16:53 113 H 28 H 99 06/21/24 16:40 97 H 25 H 137/117 06/21/24 16:31 84 29 H 117/60 06/21/24 16:21 94 H 21 85 L 06/21/24 16:10 87 27 H 111/81 89 L 06/21/24 16:01 91 H 28 H 129/86 96 06/21/24 15:53 85 19 113/61 74 L 06/21/24 15:51 69 23 61 L 06/21/24 15:39 72 26 H 104/74 06/21/24 15:34 67 22 06/21/24 15:31 87 23 93/66 62 L 06/21/24 15:30 102 H 20 06/21/24 15:20 83 26 H 06/21/24 15:13 76 27 H 06/21/24 15:00 71 23 129/87 100 06/21/24 14:51 119 H 24 99 06/21/24 14:50 96 H 23 82/65 99 06/21/24 14:41 126 H 18 99 06/21/24 14:39 112 H 18 113/89 100 06/21/24 14:34 125 H 33 H 99 06/21/24 14:31 116 H 21 88/69 90 L 06/21/24 14:16 119 H 22 127/83 99 06/21/24 14:00 122 H 20 98/83 98 06/21/24 13:30 129 H 22 144/87 99 06/21/24 13:01 128 H 22 97 06/21/24 12:30 121 H 22 115/91 06/21/24 12:00 111 H 29 H 113/81 76 L 06/21/24 11:53 97 06/21/24 11:41 110 H 17 95/68 98 06/21/24 11:09 116 H 25 H 114/84 96 06/21/24 11:02 97.1 F 137 H 20 114/84 97 General:: alert HEENT: PERRLA, EOMI Cardiovascular Exam: tachycardia, irregular Respiratory Exam: normal breath sounds SpO2: 97 Gastrointestinal/Abdomen Exam: soft Extremity Exam: normal inspection Neurologic: card game operator II-XII grossly intact Results Vital Signs: Vital Signs - 24 hr Temp Pulse Resp BP BP Pulse Ox 06/22/24 09:24 118 H 20 178/86 97 06/22/24 09:17 112 H 24 06/22/24 09:10 111 H 6 L 06/22/24 09:00 121 H 6 L 06/22/24 08:50 115 H 0 L 06/22/24 08:40 126 H 18 06/22/24 08:30 133 H 16 06/22/24 08:20 116 H 24 06/22/24 08:10 122 H 19 06/22/24 08:00 104 H 11 L 06/22/24 07:50 111 H 13 06/22/24 07:40 110 H 7 L 96 06/22/24 07:30 124 H 12 97 06/22/24 07:25 97.2 F 113 H 17 134/74 94 L 06/22/24 04:00 97 F 110 H 16 111/60 94 L 06/22/24 00:00 97.4 F 121 H 18 118/62 06/21/24 22:52 95 06/21/24 22:00 97 F 113 H 18 116/56 94 L 06/21/24 20:30 121/100 06/21/24 20:21 116 H 18 109/70 96 06/21/24 20:10 122 H 48 H 142/100 99 06/21/24 20:01 118 H 21 122/74 99 06/21/24 20:00 104 H 37 H 97 06/21/24 19:50 110 H 27 H 06/21/24 19:43 112 H 25 H 122/74 99 06/21/24 19:31 106 H 23 119/71 80 L 06/21/24 19:30 111 H 24 71 L 06/21/24 19:22 107 H 38 H 06/21/24 19:10 105 H 43 H 114/93 06/21/24 19:05 97 06/21/24 19:00 118 H 40 H 138/105 76 L 06/21/24 18:50 98 H 35 H 140/97 86 L 06/21/24 18:30 96 H 28 H 105/77 82 L 06/21/24 18:20 103 H 32 H 139/96 98 06/21/24 18:10 106 H 46 H 120/98 97 06/21/24 18:00 108 H 24 134/98 99 06/21/24 17:50 98 H 25 H 125/79 91 L 06/21/24 17:40 48 H 115/92 06/21/24 17:30 28 H 129/98 98 06/21/24 17:20 17 137/78 79 L 06/21/24 17:14 26 H 128/81 67 L 06/21/24 17:11 31 H 76 L 06/21/24 17:10 26 H 85 L 06/21/24 17:00 95 H 19 06/21/24 16:53 113 H 28 H 99 06/21/24 16:40 97 H 25 H 137/117 06/21/24 16:31 84 29 H 117/60 06/21/24 16:21 94 H 21 85 L 06/21/24 16:10 87 27 H 111/81 89 L 06/21/24 16:01 91 H 28 H 129/86 96 06/21/24 15:53 85 19 113/61 74 L 06/21/24 15:51 69 23 61 L 06/21/24 15:39 72 26 H 104/74 06/21/24 15:34 67 22 06/21/24 15:31 87 23 93/66 62 L 06/21/24 15:30 102 H 20 06/21/24 15:20 83 26 H 06/21/24 15:13 76 27 H 06/21/24 15:00 71 23 129/87 100 06/21/24 14:51 119 H 24 99 06/21/24 14:50 96 H 23 82/65 99 06/21/24 14:41 126 H 18 99 06/21/24 14:39 112 H 18 113/89 100 06/21/24 14:34 125 H 33 H 99 06/21/24 14:31 116 H 21 88/69 90 L 06/21/24 14:16 119 H 22 127/83 99 06/21/24 14:00 122 H 20 98/83 98 06/21/24 13:30 129 H 22 144/87 99 06/21/24 13:01 128 H 22 97 06/21/24 12:30 121 H 22 115/91 06/21/24 12:00 111 H 29 H 113/81 76 L 06/21/24 11:53 97 06/21/24 11:41 110 H 17 95/68 98 06/21/24 11:09 116 H 25 H 114/84 96 06/21/24 11:02 97.1 F 137 H 20 114/84 97 Pain Assessment - Last Documented Pain Intensity 1 Pain Scale Used 0-10 Pain Scale Intake and Output: Intake & Output 06/19/24 06/20/24 06/21/24 06/22/24 10:59 11:59 11:59 11:59 Intake Total 680 Output Total 250 Balance 430 Weight 66.7 kg 61.5 kg LAB: I have reviewed the Labs in [facility]. Radiology Exams: Radiology Procedures Category Date Time Status CHEST 1 VIEW (PORTABLE) Stat Exams 06/21/24 11:32 Completed ECHO W/2D AND DOPPLER [US] Routine Exams 06/22/24 10:00 Taken Assessment & Plan (1) Atrial fibrillation with RVR Current Visit: Yes Status: Acute Assessment & Plan: - HR 100s-110s bpm. This is acceptable in the setting of acute UTI. - Was getting metoprolol 25 mg PO BID, just increased to 50 mg PO BID. can titrate up on dose of metoprolol as tolerated by BP and HR - Risks and benefits of terminal makeup operator oral anticoagulation explained to the pt including risk of bleeding with anticoagulation and risk of stroke without anticoagulation. Pt understood the risks and benefits that were explained to her. shared decision making was made to start OAC for stroke prevention due to high CHADSVASC score. denies falls or bleeding issues. can stop lovenox and switch to Eliquis 5 mg PO BID - I reviewed her echo images. EF is preserved Code(s): I48.91 - UNSPECIFIED ATRIAL FIBRILLATION (2) Elevated troponin Current Visit: Yes Status: Acute Assessment & Plan: flat trend. denies chest pain and no obvious EKG changes. likely elevated due to sepsis. no evidence of ACS Code(s): R79.89 - OTHER SPECIFIED ABNORMAL FINDINGS OF BLOOD CHEMISTRY (3) UTI (urinary tract infection) Current Visit: Yes Status: Acute Assessment & Plan: antibiotics as per primary team Code(s): N39.0 - URINARY TRACT INFECTION, SITE NOT SPECIFIED - Encounter Encounter: "The entirety of this encounter was performed via Telemedicine using audio and visual "
--- NOTE | 2024-06-22 10:49 | PCM.NOTE ---
Date and Time: 06/22/24 1046 Subjective Assessment: echo reviewed. Objective Data Vital Signs: Vital Signs - 24 hr Temp Pulse Resp BP BP Pulse Ox 06/22/24 10:28 97 06/22/24 09:24 118 H 20 178/86 97 06/22/24 09:17 112 H 24 06/22/24 09:10 111 H 6 L 06/22/24 09:00 121 H 6 L 06/22/24 08:50 115 H 0 L 06/22/24 08:40 126 H 18 06/22/24 08:30 133 H 16 06/22/24 08:20 116 H 24 06/22/24 08:10 122 H 19 06/22/24 08:00 104 H 11 L 06/22/24 07:50 111 H 13 06/22/24 07:40 110 H 7 L 96 06/22/24 07:30 124 H 12 97 06/22/24 07:25 97.2 F 113 H 17 134/74 94 L 06/22/24 04:00 97 F 110 H 16 111/60 94 L 06/22/24 00:00 97.4 F 121 H 18 118/62 06/21/24 22:52 95 06/21/24 22:00 97 F 113 H 18 116/56 94 L 06/21/24 20:30 121/100 06/21/24 20:21 116 H 18 109/70 96 06/21/24 20:10 122 H 48 H 142/100 99 06/21/24 20:01 118 H 21 122/74 99 06/21/24 20:00 104 H 37 H 97 06/21/24 19:50 110 H 27 H 06/21/24 19:43 112 H 25 H 122/74 99 06/21/24 19:31 106 H 23 119/71 80 L 06/21/24 19:30 111 H 24 71 L 06/21/24 19:22 107 H 38 H 06/21/24 19:10 105 H 43 H 114/93 06/21/24 19:05 97 06/21/24 19:00 118 H 40 H 138/105 76 L 06/21/24 18:50 98 H 35 H 140/97 86 L 06/21/24 18:30 96 H 28 H 105/77 82 L 06/21/24 18:20 103 H 32 H 139/96 98 06/21/24 18:10 106 H 46 H 120/98 97 06/21/24 18:00 108 H 24 134/98 99 06/21/24 17:50 98 H 25 H 125/79 91 L 06/21/24 17:40 48 H 115/92 06/21/24 17:30 28 H 129/98 98 06/21/24 17:20 17 137/78 79 L 06/21/24 17:14 26 H 128/81 67 L 06/21/24 17:11 31 H 76 L 06/21/24 17:10 26 H 85 L 06/21/24 17:00 95 H 19 06/21/24 16:53 113 H 28 H 99 06/21/24 16:40 97 H 25 H 137/117 06/21/24 16:31 84 29 H 117/60 06/21/24 16:21 94 H 21 85 L 06/21/24 16:10 87 27 H 111/81 89 L 06/21/24 16:01 91 H 28 H 129/86 96 06/21/24 15:53 85 19 113/61 74 L 06/21/24 15:51 69 23 61 L 06/21/24 15:39 72 26 H 104/74 06/21/24 15:34 67 22 06/21/24 15:31 87 23 93/66 62 L 06/21/24 15:30 102 H 20 06/21/24 15:20 83 26 H 06/21/24 15:13 76 27 H 06/21/24 15:00 71 23 129/87 100 06/21/24 14:51 119 H 24 99 06/21/24 14:50 96 H 23 82/65 99 06/21/24 14:41 126 H 18 99 06/21/24 14:39 112 H 18 113/89 100 06/21/24 14:34 125 H 33 H 99 06/21/24 14:31 116 H 21 88/69 90 L 06/21/24 14:16 119 H 22 127/83 99 06/21/24 14:00 122 H 20 98/83 98 06/21/24 13:30 129 H 22 144/87 99 06/21/24 13:01 128 H 22 97 06/21/24 12:30 121 H 22 115/91 06/21/24 12:00 111 H 29 H 113/81 76 L 06/21/24 11:53 97 06/21/24 11:41 110 H 17 95/68 98 06/21/24 11:09 116 H 25 H 114/84 96 06/21/24 11:02 97.1 F 137 H 20 114/84 97 Pain Assessment - Last Documented Pain Intensity 1 Pain Scale Used 0-10 Pain Scale Intake and Output: Intake & Output 06/19/24 06/20/24 06/21/24 06/22/24 10:59 11:59 11:59 11:59 Intake Total 680 Output Total 250 Balance 430 Weight 66.7 kg 61.5 kg LAB: I have reviewed the Labs in [facility]. Lab Results: Lab Results-Last 24 Hours 06/21/24 06/21/24 06/21/24 Range/Units 12:25 12:25 12:25 WBC 14.9 H (3.98-10.04) x10^3/uL RBC 6.28 H (3.93-5.22) x10^6/uL Hgb 17.6 H (11.2-15.7) g/dL Hct 56.2 H (34.1-44.9) % MCV 89.5 (79.4-94.8) fL MCH 28.0 (25.6-32.2) pg MCHC 31.3 L (32.2-35.5) g/dL RDW 14.5 H (11.7-14.4) % Plt Count 240 (182-369) x10^3/uL MPV 10.6 (9.4-12.3) fL Gran % (34.0-71.1) % Immature Gran % (Auto) (0.001-0.429) % Nucleat RBC Rel Count (0.00-0.2) % Eos # (Auto) (0.04-0.36) x10^3/uL Immature Gran # (Auto) (0.001-0.031) x10^3u/L Absolute Lymphs (auto) (1.18-3.74) x10^3/uL Absolute Monos (auto) (0.24-0.86) x10^3/uL Absolute Nucleated RBC (0.00-0.012) x10^3u/L Lymphocytes % (19.3-51.7) % Monocytes % (4.7-12.5) % Eosinophils % (0.7-5.8) % Basophils % (0.1-1.2) % Absolute Granulocytes (1.56-6.13) x10^3/uL Segmented Neutrophils 86 H (34.0-71.1) % Band Neutrophils 2 (0.0-2.0) % Lymphocytes (Manual) 6 L (19.3-51.7) % Monocytes (Manual) 6 (4.7-12.5) % Basophils # (0.01-0.08) x10^3/uL Toxic Granulation 1+ Platelet Estimate NORMAL (NORMAL) RBC Morphology ABNORMAL Anisocytosis 1+ PT 11.2 (9.4-12.5) SECONDS INR 1.03 (0.8-3.0) Sodium 135 (135-145) mmol/L Potassium 5.0 (3.5-5.1) mmol/L Chloride 104 (98-107) mmol/L Carbon Dioxide 13 L* (22-30) mmol/L Anion Gap 22.7 H (5-15) MEQ/L BUN 51 H (7-17) mg/dL Creatinine 1.06 H (0.52-1.04) mg/dL Estimated GFR 54.4 ML/MIN Glucose 149 H (74-106) mg/dL POC Glucometer (74 to 106) mg/dL Lactic Acid (0.4-2.0) Calcium 9.0 (8.4-10.2) mg/dL Magnesium 2.1 (1.6-2.3) mg/dL Total Bilirubin 0.80 (0.2-1.3) mg/dL AST 51 H (14-36) U/L ALT 32 (0-35) U/L Alkaline Phosphatase 71 (38-126) U/L Troponin I (0.000-0.033) ng/mL NT-Pro-B Natriuret Pep 1870 (<300) pg/mL Serum Total Protein 7.0 (6.3-8.2) g/dL Albumin 3.7 (3.5-5.0) g/dL Lipase 89 (23-300) U/L TSH 3rd Generation (0.470-4.680) mIU/L Urine Color (Yellow) Urine Appearance (Clear) Urine pH (4.6-8.0) Ur Specific Delta (1.005-1.030) Urine Protein (Negative) Urine Glucose (UA) (Negative) mg/dL Urine Ketones (Negative) Urine Blood (Negative) Urine Nitrite (Negative) Urine Bilirubin (Negative) Urine Urobilinogen (0.2) mg/dL Ur Leukocyte Esterase (Negative) U Hyaline Cast (Auto) (0-2) /LPF Urine Microscopic RBC (0-5) /HPF Urine Microscopic WBC (0-5) /HPF Ur Epithelial Cells (None Seen) /HPF Urine Bacteria (None Seen) /HPF Urine Culture Reflexed (NO) Slides for Path Review 06/21/24 06/21/24 06/21/24 Range/Units 12:25 15:46 15:49 WBC (3.98-10.04) x10^3/uL RBC (3.93-5.22) x10^6/uL Hgb (11.2-15.7) g/dL Hct (34.1-44.9) % MCV (79.4-94.8) fL MCH (25.6-32.2) pg MCHC (32.2-35.5) g/dL RDW (11.7-14.4) % Plt Count (182-369) x10^3/uL MPV (9.4-12.3) fL Gran % (34.0-71.1) % Immature Gran % (Auto) (0.001-0.429) % Nucleat RBC Rel Count (0.00-0.2) % Eos # (Auto) (0.04-0.36) x10^3/uL Immature Gran # (Auto) (0.001-0.031) x10^3u/L Absolute Lymphs (auto) (1.18-3.74) x10^3/uL Absolute Monos (auto) (0.24-0.86) x10^3/uL Absolute Nucleated RBC (0.00-0.012) x10^3u/L Lymphocytes % (19.3-51.7) % Monocytes % (4.7-12.5) % Eosinophils % (0.7-5.8) % Basophils % (0.1-1.2) % Absolute Granulocytes (1.56-6.13) x10^3/uL Segmented Neutrophils (34.0-71.1) % Band Neutrophils (0.0-2.0) % Lymphocytes (Manual) (19.3-51.7) % Monocytes (Manual) (4.7-12.5) % Basophils # (0.01-0.08) x10^3/uL Toxic Granulation Platelet Estimate (NORMAL) RBC Morphology Anisocytosis PT (9.4-12.5) SECONDS INR (0.8-3.0) Sodium (135-145) mmol/L Potassium (3.5-5.1) mmol/L Chloride (98-107) mmol/L Carbon Dioxide (22-30) mmol/L Anion Gap (5-15) MEQ/L BUN (7-17) mg/dL Creatinine (0.52-1.04) mg/dL Estimated GFR ML/MIN Glucose (74-106) mg/dL POC Glucometer 138 H (74 to 106) mg/dL Lactic Acid (0.4-2.0) Calcium (8.4-10.2) mg/dL Magnesium (1.6-2.3) mg/dL Total Bilirubin (0.2-1.3) mg/dL AST (14-36) U/L ALT (0-35) U/L Alkaline Phosphatase (38-126) U/L Troponin I 0.084 H* (0.000-0.033) ng/mL NT-Pro-B Natriuret Pep (<300) pg/mL Serum Total Protein (6.3-8.2) g/dL Albumin (3.5-5.0) g/dL Lipase (23-300) U/L TSH 3rd Generation (0.470-4.680) mIU/L Urine Color Yellow (Yellow) Urine Appearance Cloudy A (Clear) Urine pH 5.0 (4.6-8.0) Ur Specific Delta 1.025 (1.005-1.030) Urine Protein Trace A (Negative) Urine Glucose (UA) Negative (Negative) mg/dL Urine Ketones Negative (Negative) Urine Blood Trace (Negative) Urine Nitrite Negative (Negative) Urine Bilirubin Negative (Negative) Urine Urobilinogen 0.2 (0.2) mg/dL Ur Leukocyte Esterase Moderate A (Negative) U Hyaline Cast (Auto) 11-20 (0-2) /LPF Urine Microscopic RBC 6-10 A (0-5) /HPF Urine Microscopic WBC >100 A (0-5) /HPF Ur Epithelial Cells None Seen (None Seen) /HPF Urine Bacteria Few A (None Seen) /HPF Urine Culture Reflexed ORDERED SEPARATELY (NO) Slides for Path Review 06/21/24 06/21/24 06/21/24 Range/Units 17:00 17:05 19:50 WBC (3.98-10.04) x10^3/uL RBC (3.93-5.22) x10^6/uL Hgb (11.2-15.7) g/dL Hct (34.1-44.9) % MCV (79.4-94.8) fL MCH (25.6-32.2) pg MCHC (32.2-35.5) g/dL RDW (11.7-14.4) % Plt Count (182-369) x10^3/uL MPV (9.4-12.3) fL Gran % (34.0-71.1) % Immature Gran % (Auto) (0.001-0.429) % Nucleat RBC Rel Count (0.00-0.2) % Eos # (Auto) (0.04-0.36) x10^3/uL Immature Gran # (Auto) (0.001-0.031) x10^3u/L Absolute Lymphs (auto) (1.18-3.74) x10^3/uL Absolute Monos (auto) (0.24-0.86) x10^3/uL Absolute Nucleated RBC (0.00-0.012) x10^3u/L Lymphocytes % (19.3-51.7) % Monocytes % (4.7-12.5) % Eosinophils % (0.7-5.8) % Basophils % (0.1-1.2) % Absolute Granulocytes (1.56-6.13) x10^3/uL Segmented Neutrophils (34.0-71.1) % Band Neutrophils (0.0-2.0) % Lymphocytes (Manual) (19.3-51.7) % Monocytes (Manual) (4.7-12.5) % Basophils # (0.01-0.08) x10^3/uL Toxic Granulation Platelet Estimate (NORMAL) RBC Morphology Anisocytosis PT (9.4-12.5) SECONDS INR (0.8-3.0) Sodium (135-145) mmol/L Potassium (3.5-5.1) mmol/L Chloride (98-107) mmol/L Carbon Dioxide (22-30) mmol/L Anion Gap (5-15) MEQ/L BUN (7-17) mg/dL Creatinine (0.52-1.04) mg/dL Estimated GFR ML/MIN Glucose (74-106) mg/dL POC Glucometer (74 to 106) mg/dL Lactic Acid 6.6 H (0.4-2.0) Calcium (8.4-10.2) mg/dL Magnesium (1.6-2.3) mg/dL Total Bilirubin (0.2-1.3) mg/dL AST (14-36) U/L ALT (0-35) U/L Alkaline Phosphatase (38-126) U/L Troponin I 0.103 H* 0.086 H* (0.000-0.033) ng/mL NT-Pro-B Natriuret Pep (<300) pg/mL Serum Total Protein (6.3-8.2) g/dL Albumin (3.5-5.0) g/dL Lipase (23-300) U/L TSH 3rd Generation (0.470-4.680) mIU/L Urine Color (Yellow) Urine Appearance (Clear) Urine pH (4.6-8.0) Ur Specific Delta (1.005-1.030) Urine Protein (Negative) Urine Glucose (UA) (Negative) mg/dL Urine Ketones (Negative) Urine Blood (Negative) Urine Nitrite (Negative) Urine Bilirubin (Negative) Urine Urobilinogen (0.2) mg/dL Ur Leukocyte Esterase (Negative) U Hyaline Cast (Auto) (0-2) /LPF Urine Microscopic RBC (0-5) /HPF Urine Microscopic WBC (0-5) /HPF Ur Epithelial Cells (None Seen) /HPF Urine Bacteria (None Seen) /HPF Urine Culture Reflexed (NO) Slides for Path Review 06/21/24 06/22/24 06/22/24 Range/Units 22:11 05:00 05:00 WBC 16.1 H (3.98-10.04) x10^3/uL RBC 5.88 H (3.93-5.22) x10^6/uL Hgb 16.5 H (11.2-15.7) g/dL Hct 50.5 H (34.1-44.9) % MCV 85.9 (79.4-94.8) fL MCH 28.1 (25.6-32.2) pg MCHC 32.7 (32.2-35.5) g/dL RDW 14.6 H (11.7-14.4) % Plt Count 193 (182-369) x10^3/uL MPV 11.2 (9.4-12.3) fL Gran % 78.3 H (34.0-71.1) % Immature Gran % (Auto) 0.7 H (0.001-0.429) % Nucleat RBC Rel Count 0.0 (0.00-0.2) % Eos # (Auto) 0 L (0.04-0.36) x10^3/uL Immature Gran # (Auto) 0.11 H (0.001-0.031) x10^3u/L Absolute Lymphs (auto) 1.60 (1.18-3.74) x10^3/uL Absolute Monos (auto) 1.73 H (0.24-0.86) x10^3/uL Absolute Nucleated RBC 0.00 (0.00-0.012) x10^3u/L Lymphocytes % 10.0 L (19.3-51.7) % Monocytes % 10.8 (4.7-12.5) % Eosinophils % 0.0 L (0.7-5.8) % Basophils % 0.2 (0.1-1.2) % Absolute Granulocytes 12.58 H (1.56-6.13) x10^3/uL Segmented Neutrophils (34.0-71.1) % Band Neutrophils (0.0-2.0) % Lymphocytes (Manual) (19.3-51.7) % Monocytes (Manual) (4.7-12.5) % Basophils # 0.03 (0.01-0.08) x10^3/uL Toxic Granulation Platelet Estimate (NORMAL) RBC Morphology Anisocytosis PT (9.4-12.5) SECONDS INR (0.8-3.0) Sodium (135-145) mmol/L Potassium (3.5-5.1) mmol/L Chloride (98-107) mmol/L Carbon Dioxide (22-30) mmol/L Anion Gap (5-15) MEQ/L BUN (7-17) mg/dL Creatinine (0.52-1.04) mg/dL Estimated GFR ML/MIN Glucose (74-106) mg/dL POC Glucometer (74 to 106) mg/dL Lactic Acid 5.6 H (0.4-2.0) Calcium (8.4-10.2) mg/dL Magnesium (1.6-2.3) mg/dL Total Bilirubin (0.2-1.3) mg/dL AST (14-36) U/L ALT (0-35) U/L Alkaline Phosphatase (38-126) U/L Troponin I 0.090 H* (0.000-0.033) ng/mL NT-Pro-B Natriuret Pep (<300) pg/mL Serum Total Protein (6.3-8.2) g/dL Albumin (3.5-5.0) g/dL Lipase (23-300) U/L TSH 3rd Generation (0.470-4.680) mIU/L Urine Color (Yellow) Urine Appearance (Clear) Urine pH (4.6-8.0) Ur Specific Delta (1.005-1.030) Urine Protein (Negative) Urine Glucose (UA) (Negative) mg/dL Urine Ketones (Negative) Urine Blood (Negative) Urine Nitrite (Negative) Urine Bilirubin (Negative) Urine Urobilinogen (0.2) mg/dL Ur Leukocyte Esterase (Negative) U Hyaline Cast (Auto) (0-2) /LPF Urine Microscopic RBC (0-5) /HPF Urine Microscopic WBC (0-5) /HPF Ur Epithelial Cells (None Seen) /HPF Urine Bacteria (None Seen) /HPF Urine Culture Reflexed (NO) Slides for Path Review YES 06/22/24 Range/Units 05:00 WBC (3.98-10.04) x10^3/uL RBC (3.93-5.22) x10^6/uL Hgb (11.2-15.7) g/dL Hct (34.1-44.9) % MCV (79.4-94.8) fL MCH (25.6-32.2) pg MCHC (32.2-35.5) g/dL RDW (11.7-14.4) % Plt Count (182-369) x10^3/uL MPV (9.4-12.3) fL Gran % (34.0-71.1) % Immature Gran % (Auto) (0.001-0.429) % Nucleat RBC Rel Count (0.00-0.2) % Eos # (Auto) (0.04-0.36) x10^3/uL Immature Gran # (Auto) (0.001-0.031) x10^3u/L Absolute Lymphs (auto) (1.18-3.74) x10^3/uL Absolute Monos (auto) (0.24-0.86) x10^3/uL Absolute Nucleated RBC (0.00-0.012) x10^3u/L Lymphocytes % (19.3-51.7) % Monocytes % (4.7-12.5) % Eosinophils % (0.7-5.8) % Basophils % (0.1-1.2) % Absolute Granulocytes (1.56-6.13) x10^3/uL Segmented Neutrophils (34.0-71.1) % Band Neutrophils (0.0-2.0) % Lymphocytes (Manual) (19.3-51.7) % Monocytes (Manual) (4.7-12.5) % Basophils # (0.01-0.08) x10^3/uL Toxic Granulation Platelet Estimate (NORMAL) RBC Morphology Anisocytosis PT (9.4-12.5) SECONDS INR (0.8-3.0) Sodium 139 (135-145) mmol/L Potassium 4.8 (3.5-5.1) mmol/L Chloride 106 (98-107) mmol/L Carbon Dioxide 13 L* (22-30) mmol/L Anion Gap 24.5 H (5-15) MEQ/L BUN 59 H (7-17) mg/dL Creatinine 1.01 (0.52-1.04) mg/dL Estimated GFR 57.7 ML/MIN Glucose 114 H (74-106) mg/dL POC Glucometer (74 to 106) mg/dL Lactic Acid (0.4-2.0) Calcium 8.8 (8.4-10.2) mg/dL Magnesium (1.6-2.3) mg/dL Total Bilirubin 0.70 (0.2-1.3) mg/dL AST 97 H (14-36) U/L ALT 43 H (0-35) U/L Alkaline Phosphatase 62 (38-126) U/L Troponin I (0.000-0.033) ng/mL NT-Pro-B Natriuret Pep 4210 (<300) pg/mL Serum Total Protein 6.5 (6.3-8.2) g/dL Albumin 3.5 (3.5-5.0) g/dL Lipase (23-300) U/L TSH 3rd Generation 1.358 (0.470-4.680) mIU/L Urine Color (Yellow) Urine Appearance (Clear) Urine pH (4.6-8.0) Ur Specific Delta (1.005-1.030) Urine Protein (Negative) Urine Glucose (UA) (Negative) mg/dL Urine Ketones (Negative) Urine Blood (Negative) Urine Nitrite (Negative) Urine Bilirubin (Negative) Urine Urobilinogen (0.2) mg/dL Ur Leukocyte Esterase (Negative) U Hyaline Cast (Auto) (0-2) /LPF Urine Microscopic RBC (0-5) /HPF Urine Microscopic WBC (0-5) /HPF Ur Epithelial Cells (None Seen) /HPF Urine Bacteria (None Seen) /HPF Urine Culture Reflexed (NO) Slides for Path Review Radiology Exams: Radiology Procedures Category Date Time Status CHEST 1 VIEW (PORTABLE) Stat Exams 06/21/24 11:32 Completed ECHO W/2D AND DOPPLER [US] Routine Exams 06/22/24 10:00 Taken Assessment & Plan (1) Atrial fibrillation with RVR Current Visit: Yes Status: Acute Assessment & Plan: Brief cardiology f/u note: - i reviewed the echo images which shows a small pericardial effusion with exudative material along the RV free wall in the pericardial fluid. I cannot tell if this is a old blood in the effusion. At this time, recommend holding off on anticoagulation/blood thinners. repeat echo in 1-2 weeks with outpatient cardiology follow up Code(s): I48.91 - UNSPECIFIED ATRIAL FIBRILLATION (2) Elevated troponin Current Visit: Yes Status: Acute Assessment & Plan: see original note Code(s): R79.89 - OTHER SPECIFIED ABNORMAL FINDINGS OF BLOOD CHEMISTRY (3) UTI (urinary tract infection) Current Visit: Yes Status: Acute Assessment & Plan: see original note Code(s): N39.0 - URINARY TRACT INFECTION, SITE NOT SPECIFIED - Encounter Encounter: "The entirety of this encounter was performed via Telemedicine using audio and visual "
[2024-06-22] MEDS: Sodium Chloride 0.9% 1000 ML 1,000 ML IV STA (10:50)
--- NOTE | 2024-06-22 10:50 | PCM.NOTE ---
Date and Time: 06/22/24 1040 Subjective Assessment: is a 78 year old female with a history of scleroderma (not currently following with a black belt) and no cardiac history. She presented to the ED on 06/21/24 with generalized weakness and shortness of breath on exertion for 2 days. Patient denied chest pain, abdominal pain, nausea, vomiting, diarrhea, cough, or fever. In the ED, the initial twelve-lead EKG showed atrial fibrillation with RVR which improved after administration of Cardizem. She was also found to have a UTI. She denies recent dysuria, pyuria, or hematuria. Today HR back up to 130 and cardiology consulted and changed metoprolol to 50 BID. He also started Eliquis 5mg BID. Pt moved to ICU as she was having significant SOB with the HR increasing. Pt to have an Echo today. Repeat lactic acid 3.2 and 2 L IV fluid bolus started as pt has urosepsis. Continue Merrem for UTI. UC gram negative and sensitivity pending. WBC increased to 16.1 today. CO2 13, will recheck after IVF boluses. Consider bicarb gtt. Pt denies CP, abd. pain, N/V/D. - Review of Systems Constitutional: No Fever, No Chills Eyes: No Symptoms Ears, Nose, & Throat: No Symptoms Respiratory: Short Of Breath, No Cough Cardiac: Palpitations, No Chest Pain, No Edema, No Syncope Abdominal/Gastrointestinal: No Abdominal Pain, No Nausea, No Vomiting, No Diarrhea Genitourinary Symptoms: No Dysuria Musculoskeletal: No Back Pain, No Neck Pain Skin: No Rash Neurological: No Dizziness, No Focal Weakness, No Sensory Changes Psychological: No Symptoms Endocrine: No Symptoms Hematologic/Lymphatic: No Symptoms Immunological/Allergic: No Symptoms Objective Exam General Appearance: no apparent distress, alert Neurologic Exam: alert, oriented x 3, cooperative, normal mood/affect, nml cerebellar function, sensation nml, No motor deficits Skin Exam: normal color, warm, dry Eye Exam: PERRL, EOMI, eyes nml inspection Ears, Nose, Throat Exam: normal ENT inspection, pharynx normal, moist mucous membranes Neck Exam: normal inspection, non-tender, supple, full range of motion Respiratory Exam: normal breath sounds, lungs clear, No respiratory distress Cardiovascular Exam: normal heart sounds, irregular Gastrointestinal/Abdomen Exam: soft, No tenderness, No mass Extremity Exam: normal inspection, normal range of motion Back Exam: normal inspection, normal range of motion, No CVA tenderness, No vertebral tenderness Pelvic Exam: deferred Rectal Exam: deferred Objective Data Vital Signs: Vital Signs - 24 hr Temp Pulse Resp BP BP Pulse Ox 06/22/24 10:28 97 06/22/24 09:24 118 H 20 178/86 97 06/22/24 09:17 112 H 24 06/22/24 09:10 111 H 6 L 06/22/24 09:00 121 H 6 L 06/22/24 08:50 115 H 0 L 06/22/24 08:40 126 H 18 06/22/24 08:30 133 H 16 06/22/24 08:20 116 H 24 06/22/24 08:10 122 H 19 06/22/24 08:00 104 H 11 L 06/22/24 07:50 111 H 13 06/22/24 07:40 110 H 7 L 96 06/22/24 07:30 124 H 12 97 06/22/24 07:25 97.2 F 113 H 17 134/74 94 L 06/22/24 04:00 97 F 110 H 16 111/60 94 L 06/22/24 00:00 97.4 F 121 H 18 118/62 06/21/24 22:52 95 06/21/24 22:00 97 F 113 H 18 116/56 94 L 06/21/24 20:30 121/100 06/21/24 20:21 116 H 18 109/70 96 06/21/24 20:10 122 H 48 H 142/100 99 06/21/24 20:01 118 H 21 122/74 99 06/21/24 20:00 104 H 37 H 97 06/21/24 19:50 110 H 27 H 06/21/24 19:43 112 H 25 H 122/74 99 06/21/24 19:31 106 H 23 119/71 80 L 06/21/24 19:30 111 H 24 71 L 06/21/24 19:22 107 H 38 H 06/21/24 19:10 105 H 43 H 114/93 06/21/24 19:05 97 06/21/24 19:00 118 H 40 H 138/105 76 L 06/21/24 18:50 98 H 35 H 140/97 86 L 06/21/24 18:30 96 H 28 H 105/77 82 L 06/21/24 18:20 103 H 32 H 139/96 98 06/21/24 18:10 106 H 46 H 120/98 97 06/21/24 18:00 108 H 24 134/98 99 06/21/24 17:50 98 H 25 H 125/79 91 L 06/21/24 17:40 48 H 115/92 06/21/24 17:30 28 H 129/98 98 06/21/24 17:20 17 137/78 79 L 06/21/24 17:14 26 H 128/81 67 L 06/21/24 17:11 31 H 76 L 06/21/24 17:10 26 H 85 L 06/21/24 17:00 95 H 19 06/21/24 16:53 113 H 28 H 99 06/21/24 16:40 97 H 25 H 137/117 06/21/24 16:31 84 29 H 117/60 06/21/24 16:21 94 H 21 85 L 06/21/24 16:10 87 27 H 111/81 89 L 06/21/24 16:01 91 H 28 H 129/86 96 06/21/24 15:53 85 19 113/61 74 L 06/21/24 15:51 69 23 61 L 06/21/24 15:39 72 26 H 104/74 06/21/24 15:34 67 22 06/21/24 15:31 87 23 93/66 62 L 06/21/24 15:30 102 H 20 06/21/24 15:20 83 26 H 06/21/24 15:13 76 27 H 06/21/24 15:00 71 23 129/87 100 06/21/24 14:51 119 H 24 99 06/21/24 14:50 96 H 23 82/65 99 06/21/24 14:41 126 H 18 99 06/21/24 14:39 112 H 18 113/89 100 06/21/24 14:34 125 H 33 H 99 06/21/24 14:31 116 H 21 88/69 90 L 06/21/24 14:16 119 H 22 127/83 99 06/21/24 14:00 122 H 20 98/83 98 06/21/24 13:30 129 H 22 144/87 99 03/10/25 13:01 128 H 22 97 06/21/24 12:30 121 H 22 115/91 06/21/24 12:00 111 H 29 H 113/81 76 L 06/21/24 11:53 97 06/21/24 11:41 110 H 17 95/68 98 06/21/24 11:09 116 H 25 H 114/84 96 06/21/24 11:02 97.1 F 137 H 20 114/84 97 Pain Assessment - Last Documented Pain Intensity 1 Pain Scale Used 0-10 Pain Scale Intake and Output: Intake & Output 06/19/24 06/20/24 06/21/24 06/22/24 10:59 11:59 11:59 11:59 Intake Total 680 Output Total 250 Balance 430 Weight 66.7 kg 61.5 kg Lab Results: Lab Results-Last 24 Hours 06/21/24 06/21/24 06/21/24 Range/Units 12:25 12:25 12:25 WBC 14.9 H (3.98-10.04) x10^3/uL RBC 6.28 H (3.93-5.22) x10^6/uL Hgb 17.6 H (11.2-15.7) g/dL Hct 56.2 H (34.1-44.9) % MCV 89.5 (79.4-94.8) fL MCH 28.0 (25.6-32.2) pg MCHC 31.3 L (32.2-35.5) g/dL RDW 14.5 H (11.7-14.4) % Plt Count 240 (182-369) x10^3/uL MPV 10.6 (9.4-12.3) fL Gran % (34.0-71.1) % Immature Gran % (Auto) (0.001-0.429) % Nucleat RBC Rel Count (0.00-0.2) % Eos # (Auto) (0.04-0.36) x10^3/uL Immature Gran # (Auto) (0.001-0.031) x10^3u/L Absolute Lymphs (auto) (1.18-3.74) x10^3/uL Absolute Monos (auto) (0.24-0.86) x10^3/uL Absolute Nucleated RBC (0.00-0.012) x10^3u/L Lymphocytes % (19.3-51.7) % Monocytes % (4.7-12.5) % Eosinophils % (0.7-5.8) % Basophils % (0.1-1.2) % Absolute Granulocytes (1.56-6.13) x10^3/uL Segmented Neutrophils 86 H (34.0-71.1) % Band Neutrophils 2 (0.0-2.0) % Lymphocytes (Manual) 6 L (19.3-51.7) % Monocytes (Manual) 6 (4.7-12.5) % Basophils # (0.01-0.08) x10^3/uL Toxic Granulation 1+ Platelet Estimate NORMAL (NORMAL) RBC Morphology ABNORMAL Anisocytosis 1+ PT 11.2 (9.4-12.5) SECONDS INR 1.03 (0.8-3.0) Sodium 135 (135-145) mmol/L Potassium 5.0 (3.5-5.1) mmol/L Chloride 104 (98-107) mmol/L Carbon Dioxide 13 L* (22-30) mmol/L Anion Gap 22.7 H (5-15) MEQ/L BUN 51 H (7-17) mg/dL Creatinine 1.06 H (0.52-1.04) mg/dL Estimated GFR 54.4 ML/MIN Glucose 149 H (74-106) mg/dL POC Glucometer (74 to 106) mg/dL Lactic Acid (0.4-2.0) Calcium 9.0 (8.4-10.2) mg/dL Magnesium 2.1 (1.6-2.3) mg/dL Total Bilirubin 0.80 (0.2-1.3) mg/dL AST 51 H (14-36) U/L ALT 32 (0-35) U/L Alkaline Phosphatase 71 (38-126) U/L Troponin I (0.000-0.033) ng/mL NT-Pro-B Natriuret Pep 1870 (<300) pg/mL Serum Total Protein 7.0 (6.3-8.2) g/dL Albumin 3.7 (3.5-5.0) g/dL Lipase 89 (23-300) U/L TSH 3rd Generation (0.470-4.680) mIU/L Urine Color (Yellow) Urine Appearance (Clear) Urine pH (4.6-8.0) Ur Specific [place] (1.005-1.030) Urine Protein (Negative) Urine Glucose (UA) (Negative) mg/dL Urine Ketones (Negative) Urine Blood (Negative) Urine Nitrite (Negative) Urine Bilirubin (Negative) Urine Urobilinogen (0.2) mg/dL Ur Leukocyte Esterase (Negative) U Hyaline Cast (Auto) (0-2) /LPF Urine Microscopic RBC (0-5) /HPF Urine Microscopic WBC (0-5) /HPF Ur Epithelial Cells (None Seen) /HPF Urine Bacteria (None Seen) /HPF Urine Culture Reflexed (NO) Slides for Path Review 06/21/24 06/21/24 06/21/24 Range/Units 12:25 15:46 15:49 WBC (3.98-10.04) x10^3/uL RBC (3.93-5.22) x10^6/uL Hgb (11.2-15.7) g/dL Hct (34.1-44.9) % MCV (79.4-94.8) fL MCH (25.6-32.2) pg MCHC (32.2-35.5) g/dL RDW (11.7-14.4) % Plt Count (182-369) x10^3/uL MPV (9.4-12.3) fL Gran % (34.0-71.1) % Immature Gran % (Auto) (0.001-0.429) % Nucleat RBC Rel Count (0.00-0.2) % Eos # (Auto) (0.04-0.36) x10^3/uL Immature Gran # (Auto) (0.001-0.031) x10^3u/L Absolute Lymphs (auto) (1.18-3.74) x10^3/uL Absolute Monos (auto) (0.24-0.86) x10^3/uL Absolute Nucleated RBC (0.00-0.012) x10^3u/L Lymphocytes % (19.3-51.7) % Monocytes % (4.7-12.5) % Eosinophils % (0.7-5.8) % Basophils % (0.1-1.2) % Absolute Granulocytes (1.56-6.13) x10^3/uL Segmented Neutrophils (34.0-71.1) % Band Neutrophils (0.0-2.0) % Lymphocytes (Manual) (19.3-51.7) % Monocytes (Manual) (4.7-12.5) % Basophils # (0.01-0.08) x10^3/uL Toxic Granulation Platelet Estimate (NORMAL) RBC Morphology Anisocytosis PT (9.4-12.5) SECONDS INR (0.8-3.0) Sodium (135-145) mmol/L Potassium (3.5-5.1) mmol/L Chloride (98-107) mmol/L Carbon Dioxide (22-30) mmol/L Anion Gap (5-15) MEQ/L BUN (7-17) mg/dL Creatinine (0.52-1.04) mg/dL Estimated GFR ML/MIN Glucose (74-106) mg/dL POC Glucometer 138 H (74 to 106) mg/dL Lactic Acid (0.4-2.0) Calcium (8.4-10.2) mg/dL Magnesium (1.6-2.3) mg/dL Total Bilirubin (0.2-1.3) mg/dL AST (14-36) U/L ALT (0-35) U/L Alkaline Phosphatase (38-126) U/L Troponin I 0.084 H* (0.000-0.033) ng/mL NT-Pro-B Natriuret Pep (<300) pg/mL Serum Total Protein (6.3-8.2) g/dL Albumin (3.5-5.0) g/dL Lipase (23-300) U/L TSH 3rd Generation (0.470-4.680) mIU/L Urine Color Yellow (Yellow) Urine Appearance Cloudy A (Clear) Urine pH 5.0 (4.6-8.0) Ur Specific [place] 1.025 (1.005-1.030) Urine Protein Trace A (Negative) Urine Glucose (UA) Negative (Negative) mg/dL Urine Ketones Negative (Negative) Urine Blood Trace (Negative) Urine Nitrite Negative (Negative) Urine Bilirubin Negative (Negative) Urine Urobilinogen 0.2 (0.2) mg/dL Ur Leukocyte Esterase Moderate A (Negative) U Hyaline Cast (Auto) 11-20 (0-2) /LPF Urine Microscopic RBC 6-10 A (0-5) /HPF Urine Microscopic WBC >100 A (0-5) /HPF Ur Epithelial Cells None Seen (None Seen) /HPF Urine Bacteria Few A (None Seen) /HPF Urine Culture Reflexed ORDERED SEPARATELY (NO) Slides for Path Review 06/21/24 06/21/24 06/21/24 Range/Units 17:00 17:05 19:50 WBC (3.98-10.04) x10^3/uL RBC (3.93-5.22) x10^6/uL Hgb (11.2-15.7) g/dL Hct (34.1-44.9) % MCV (79.4-94.8) fL MCH (25.6-32.2) pg MCHC (32.2-35.5) g/dL RDW (11.7-14.4) % Plt Count (182-369) x10^3/uL MPV (9.4-12.3) fL Gran % (34.0-71.1) % Immature Gran % (Auto) (0.001-0.429) % Nucleat RBC Rel Count (0.00-0.2) % Eos # (Auto) (0.04-0.36) x10^3/uL Immature Gran # (Auto) (0.001-0.031) x10^3u/L Absolute Lymphs (auto) (1.18-3.74) x10^3/uL Absolute Monos (auto) (0.24-0.86) x10^3/uL Absolute Nucleated RBC (0.00-0.012) x10^3u/L Lymphocytes % (19.3-51.7) % Monocytes % (4.7-12.5) % Eosinophils % (0.7-5.8) % Basophils % (0.1-1.2) % Absolute Granulocytes (1.56-6.13) x10^3/uL Segmented Neutrophils (34.0-71.1) % Band Neutrophils (0.0-2.0) % Lymphocytes (Manual) (19.3-51.7) % Monocytes (Manual) (4.7-12.5) % Basophils # (0.01-0.08) x10^3/uL Toxic Granulation Platelet Estimate (NORMAL) RBC Morphology Anisocytosis PT (9.4-12.5) SECONDS INR (0.8-3.0) Sodium (135-145) mmol/L Potassium (3.5-5.1) mmol/L Chloride (98-107) mmol/L Carbon Dioxide (22-30) mmol/L Anion Gap (5-15) MEQ/L BUN (7-17) mg/dL Creatinine (0.52-1.04) mg/dL Estimated GFR ML/MIN Glucose (74-106) mg/dL POC Glucometer (74 to 106) mg/dL Lactic Acid 6.6 H (0.4-2.0) Calcium (8.4-10.2) mg/dL Magnesium (1.6-2.3) mg/dL Total Bilirubin (0.2-1.3) mg/dL AST (14-36) U/L ALT (0-35) U/L Alkaline Phosphatase (38-126) U/L Troponin I 0.103 H* 0.086 H* (0.000-0.033) ng/mL NT-Pro-B Natriuret Pep (<300) pg/mL Serum Total Protein (6.3-8.2) g/dL Albumin (3.5-5.0) g/dL Lipase (23-300) U/L TSH 3rd Generation (0.470-4.680) mIU/L Urine Color (Yellow) Urine Appearance (Clear) Urine pH (4.6-8.0) Ur Specific [place] (1.005-1.030) Urine Protein (Negative) Urine Glucose (UA) (Negative) mg/dL Urine Ketones (Negative) Urine Blood (Negative) Urine Nitrite (Negative) Urine Bilirubin (Negative) Urine Urobilinogen (0.2) mg/dL Ur Leukocyte Esterase (Negative) U Hyaline Cast (Auto) (0-2) /LPF Urine Microscopic RBC (0-5) /HPF Urine Microscopic WBC (0-5) /HPF Ur Epithelial Cells (None Seen) /HPF Urine Bacteria (None Seen) /HPF Urine Culture Reflexed (NO) Slides for Path Review 03/10/25 03/11/25 03/11/25 Range/Units 22:11 05:00 05:00 WBC 16.1 H (3.98-10.04) x10^3/uL RBC 5.88 H (3.93-5.22) x10^6/uL Hgb 16.5 H (11.2-15.7) g/dL Hct 50.5 H (34.1-44.9) % MCV 85.9 (79.4-94.8) fL MCH 28.1 (25.6-32.2) pg MCHC 32.7 (32.2-35.5) g/dL RDW 14.6 H (11.7-14.4) % Plt Count 193 (182-369) x10^3/uL MPV 11.2 (9.4-12.3) fL Gran % 78.3 H (34.0-71.1) % Immature Gran % (Auto) 0.7 H (0.001-0.429) % Nucleat RBC Rel Count 0.0 (0.00-0.2) % Eos # (Auto) 0 L (0.04-0.36) x10^3/uL Immature Gran # (Auto) 0.11 H (0.001-0.031) x10^3u/L Absolute Lymphs (auto) 1.60 (1.18-3.74) x10^3/uL Absolute Monos (auto) 1.73 H (0.24-0.86) x10^3/uL Absolute Nucleated RBC 0.00 (0.00-0.012) x10^3u/L Lymphocytes % 10.0 L (19.3-51.7) % Monocytes % 10.8 (4.7-12.5) % Eosinophils % 0.0 L (0.7-5.8) % Basophils % 0.2 (0.1-1.2) % Absolute Granulocytes 12.58 H (1.56-6.13) x10^3/uL Segmented Neutrophils (34.0-71.1) % Band Neutrophils (0.0-2.0) % Lymphocytes (Manual) (19.3-51.7) % Monocytes (Manual) (4.7-12.5) % Basophils # 0.03 (0.01-0.08) x10^3/uL Toxic Granulation Platelet Estimate (NORMAL) RBC Morphology Anisocytosis PT (9.4-12.5) SECONDS INR (0.8-3.0) Sodium (135-145) mmol/L Potassium (3.5-5.1) mmol/L Chloride (98-107) mmol/L Carbon Dioxide (22-30) mmol/L Anion Gap (5-15) MEQ/L BUN (7-17) mg/dL Creatinine (0.52-1.04) mg/dL Estimated GFR ML/MIN Glucose (74-106) mg/dL POC Glucometer (74 to 106) mg/dL Lactic Acid 5.6 H (0.4-2.0) Calcium (8.4-10.2) mg/dL Magnesium (1.6-2.3) mg/dL Total Bilirubin (0.2-1.3) mg/dL AST (14-36) U/L ALT (0-35) U/L Alkaline Phosphatase (38-126) U/L Troponin I 0.090 H* (0.000-0.033) ng/mL NT-Pro-B Natriuret Pep (<300) pg/mL Serum Total Protein (6.3-8.2) g/dL Albumin (3.5-5.0) g/dL Lipase (23-300) U/L TSH 3rd Generation (0.470-4.680) mIU/L Urine Color (Yellow) Urine Appearance (Clear) Urine pH (4.6-8.0) Ur Specific [place] (1.005-1.030) Urine Protein (Negative) Urine Glucose (UA) (Negative) mg/dL Urine Ketones (Negative) Urine Blood (Negative) Urine Nitrite (Negative) Urine Bilirubin (Negative) Urine Urobilinogen (0.2) mg/dL Ur Leukocyte Esterase (Negative) U Hyaline Cast (Auto) (0-2) /LPF Urine Microscopic RBC (0-5) /HPF Urine Microscopic WBC (0-5) /HPF Ur Epithelial Cells (None Seen) /HPF Urine Bacteria (None Seen) /HPF Urine Culture Reflexed (NO) Slides for Path Review YES 06/22/24 Range/Units 05:00 WBC (3.98-10.04) x10^3/uL RBC (3.93-5.22) x10^6/uL Hgb (11.2-15.7) g/dL Hct (34.1-44.9) % MCV (79.4-94.8) fL MCH (25.6-32.2) pg MCHC (32.2-35.5) g/dL RDW (11.7-14.4) % Plt Count (182-369) x10^3/uL MPV (9.4-12.3) fL Gran % (34.0-71.1) % Immature Gran % (Auto) (0.001-0.429) % Nucleat RBC Rel Count (0.00-0.2) % Eos # (Auto) (0.04-0.36) x10^3/uL Immature Gran # (Auto) (0.001-0.031) x10^3u/L Absolute Lymphs (auto) (1.18-3.74) x10^3/uL Absolute Monos (auto) (0.24-0.86) x10^3/uL Absolute Nucleated RBC (0.00-0.012) x10^3u/L Lymphocytes % (19.3-51.7) % Monocytes % (4.7-12.5) % Eosinophils % (0.7-5.8) % Basophils % (0.1-1.2) % Absolute Granulocytes (1.56-6.13) x10^3/uL Segmented Neutrophils (34.0-71.1) % Band Neutrophils (0.0-2.0) % Lymphocytes (Manual) (19.3-51.7) % Monocytes (Manual) (4.7-12.5) % Basophils # (0.01-0.08) x10^3/uL Toxic Granulation Platelet Estimate (NORMAL) RBC Morphology Anisocytosis PT (9.4-12.5) SECONDS INR (0.8-3.0) Sodium 139 (135-145) mmol/L Potassium 4.8 (3.5-5.1) mmol/L Chloride 106 (98-107) mmol/L Carbon Dioxide 13 L* (22-30) mmol/L Anion Gap 24.5 H (5-15) MEQ/L BUN 59 H (7-17) mg/dL Creatinine 1.01 (0.52-1.04) mg/dL Estimated GFR 57.7 ML/MIN Glucose 114 H (74-106) mg/dL POC Glucometer (74 to 106) mg/dL Lactic Acid (0.4-2.0) Calcium 8.8 (8.4-10.2) mg/dL Magnesium (1.6-2.3) mg/dL Total Bilirubin 0.70 (0.2-1.3) mg/dL AST 97 H (14-36) U/L ALT 43 H (0-35) U/L Alkaline Phosphatase 62 (38-126) U/L Troponin I (0.000-0.033) ng/mL NT-Pro-B Natriuret Pep 4210 (<300) pg/mL Serum Total Protein 6.5 (6.3-8.2) g/dL Albumin 3.5 (3.5-5.0) g/dL Lipase (23-300) U/L TSH 3rd Generation 1.358 (0.470-4.680) mIU/L Urine Color (Yellow) Urine Appearance (Clear) Urine pH (4.6-8.0) Ur Specific [place] (1.005-1.030) Urine Protein (Negative) Urine Glucose (UA) (Negative) mg/dL Urine Ketones (Negative) Urine Blood (Negative) Urine Nitrite (Negative) Urine Bilirubin (Negative) Urine Urobilinogen (0.2) mg/dL Ur Leukocyte Esterase (Negative) U Hyaline Cast (Auto) (0-2) /LPF Urine Microscopic RBC (0-5) /HPF Urine Microscopic WBC (0-5) /HPF Ur Epithelial Cells (None Seen) /HPF Urine Bacteria (None Seen) /HPF Urine Culture Reflexed (NO) Slides for Path Review Radiology Exams: Radiology Procedures Category Date Time Status CHEST 1 VIEW (PORTABLE) Stat Exams 06/21/24 11:32 Completed ECHO W/2D AND DOPPLER [US] Routine Exams 06/22/24 10:00 Taken Assessment/Plan (1) Sepsis Current Visit: Yes Status: Acute Assessment & Plan: - Urosepsis - BC x2 pending - UC Gram + sensitivity pending - Lactic acid 3.2 today- recheck at 1400 - IV fluid bolus x2 today - ICU tele (2) UTI (urinary tract infection) Current Visit: Yes Status: Acute Assessment & Plan: - CBC, CMP reviewed - Merrem - BC x2 pending - + urosepsis - UC gram + sensitivity pending. Code(s): N39.0 - URINARY TRACT INFECTION, SITE NOT SPECIFIED (3) Atrial fibrillation with RVR Current Visit: Yes Status: Acute Assessment & Plan: - ICU tele - Per cardiology recs started Eliquis 5mg BID, and increased metoprolol to 50 BID Code(s): I48.91 - UNSPECIFIED ATRIAL FIBRILLATION (4) Elevated troponin Current Visit: Yes Status: Acute Assessment & Plan: - Trop 0.084, 0.103, 0.086, 0.090 - cardiology consult - denies CP today - Echo - ICU tele - New on set a-fib RVR Code(s): R79.89 - OTHER SPECIFIED ABNORMAL FINDINGS OF BLOOD CHEMISTRY (5) Leukocytosis Current Visit: Yes Status: Acute Assessment & Plan: - WBC 16.1- increased today - CBC, CMP reviewed - BC x2 pending - + urosepsis - UC gram + sensitivity pending. VTE: Eliquis PPI: Protonix Next of KIN: Vilma Ronal [phone] D/C plan: 1-2 days Code status: Full Code(s): D72.829 - ELEVATED WHITE BLOOD CELL COUNT, UNSPECIFIED
[2024-06-22] MEDS: Sodium Chloride 0.9% 1000 ML 1,000 ML IV SCH ×2 (12:08→16:18)
[2024-06-22] MEDS: Protonix 20MG Tablet PO SCH (12:35)
[2024-06-22 14:45] LABS: ALBUMIN 3.1 g/dL (3.5-5.0); BILIRUBIN,TOTAL 0.6 mg/dL (0.2-1.3); Calcium 7.6 mg/dL (8.4-10.2); Creatinine 1 0.84 mg/dL (0.52-1.04); MAGNESIUM 2.1 mg/dL (1.6-2.3); Potassium 4.5 mmol/L (3.5-5.1); Total Protein 6.1 g/dL (6.3-8.2)
[2024-06-22] MEDS: Merrem 1 GM in Sodium Chloride 100ML MINI-BAG PLUS 100 ML IV SCH (18:02)
[2024-06-22] MEDS ORDERED: ELIQUIS 2.5 MG TABLET PO SCH (22:00)
[2024-06-23 07:27] LABS: Hemoglobin 12.2 g/dL (11.2-15.7); Mean Cell Volume 89.2 fL (79.4-94.8); Mean Corpuscular Hemoglobin 27.9 pg (25.6-32.2); Mean Corpuscular Hgb Concent. 31.3 g/dL (32.2-35.5); Mean Platelet Volume 10.8 fL (9.4-12.3); Platelet Count 196 x10^3/uL (182-369); Red Blood Count 4.37 x10^6/uL (3.93-5.22); Red Cell Distribution Width 15.1 % (11.7-14.4); White Blood Count 17.1 x10^3/uL (3.98-10.04)
[2024-06-23 07:52] LABS: BILIRUBIN,TOTAL 0.7 mg/dL (0.2-1.3); Calcium 7.8 mg/dL (8.4-10.2); Creatinine 1 0.71 mg/dL (0.52-1.04); EST GLOMERULAR FILTRATION RATE 88.1 ML/MIN; MAGNESIUM 2.3 mg/dL (1.6-2.3); Potassium 4.5 mmol/L (3.5-5.1); Total Protein 5.9 g/dL (6.3-8.2)
[2024-06-23] MEDS: Sodium Bicarbonate 50 MEQ/50 ML VIAL*** 150 MEQ in Dextrose 5%/Water IV Soln. 1000 ML 1... IV SCH (08:57)
[2024-06-23] MEDS: Tums EX 750 MG PO SCH (10:09)
--- NOTE | 2024-06-23 12:54 | PCM.NOTE ---
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 She presented to the ED on 06/21/24 with generalized weakness and shortness of breath on exertion for 2 days. Patient denied chest pain, abdominal pain, nausea, vomiting, diarrhea, cough, or fever. In the ED, the initial twelve-lead EKG showed atrial fibrillation with RVR which improved after administration of Cardizem. She was also found to have a UTI. She denies recent dysuria, pyuria, or hematuria. Today HR back up to 130 and cardiology consulted and changed metoprolol to 50 BID. He also started Eliquis 5mg BID. Pt moved to ICU as she was having significant SOB with the HR increasing. Pt to have an Echo today. Repeat lactic acid 3.2 and 2 L IV fluid bolus started as pt has urosepsis. Continue Merrem for UTI. UC gram negative and sensitivity pending. WBC increased to 16.1 today. CO2 13, will recheck after IVF boluses. Consider bicarb gtt. Pt denies CP, abd. pain, N/V/D. 06/23/24 Pt resting in the chair. She is feeling much better. Lactic acid 2.0 today. Urine culture + E-Coli and villareal-sensitive. Will deescalate antibiotics and change to oral regimen. Co2 16 and bicarb gtt started. Echo shows EF 55-60%. Pt to be transferred out of ICU bed to med-surg today. She denies CP, SOB, abd. pain, N/V/D. - Review of Systems Constitutional: No Fever, No Chills Eyes: No Symptoms Ears, Nose, & Throat: No Symptoms Respiratory: No Cough, No Short Of Breath Cardiac: No Chest Pain, No Edema, No Syncope Abdominal/Gastrointestinal: No Abdominal Pain, No Nausea, No Vomiting, No Diarrhea Genitourinary Symptoms: No Dysuria Musculoskeletal: No Back Pain, No Neck Pain Skin: No Rash Neurological: No Dizziness, No Focal Weakness, No Sensory Changes Psychological: No Symptoms Endocrine: No Symptoms Hematologic/Lymphatic: No Symptoms Immunological/Allergic: No Symptoms Objective Exam General Appearance: no apparent distress, alert Neurologic Exam: alert, oriented x 3, cooperative, normal mood/affect, nml cerebellar function, sensation nml, No motor deficits Skin Exam: normal color, warm, dry Eye Exam: PERRL, EOMI, eyes nml inspection Ears, Nose, Throat Exam: normal ENT inspection, pharynx normal, moist mucous membranes Neck Exam: normal inspection, non-tender, supple, full range of motion Respiratory Exam: normal breath sounds, lungs clear, No respiratory distress Cardiovascular Exam: regular rate/rhythm, normal heart sounds Gastrointestinal/Abdomen Exam: soft, No tenderness, No mass Extremity Exam: normal inspection, normal range of motion Back Exam: normal inspection, normal range of motion, No CVA tenderness, No vertebral tenderness Pelvic Exam: deferred Rectal Exam: deferred Objective Data Vital Signs: Vital Signs - 24 hr Temp Pulse Resp BP Pulse Ox 06/23/24 12:00 72 24 125/75 06/23/24 11:50 76 06/23/24 11:00 76 20 121/78 06/23/24 10:50 77 24 06/23/24 10:40 77 24 06/23/24 10:30 83 16 06/23/24 10:20 91 H 13 06/23/24 10:10 88 16 06/23/24 10:07 95 H 5 L 06/23/24 09:01 87 19 118/84 06/23/24 08:02 75 16 122/71 06/23/24 08:00 81 17 06/23/24 07:50 80 25 H 06/23/24 07:45 87 06/23/24 07:40 80 18 06/23/24 07:30 97.6 F 78 22 06/23/24 07:02 77 24 06/23/24 06:00 97.8 F 78 24 126/63 06/23/24 05:00 82 24 137/68 06/23/24 04:00 75 26 H 126/77 06/23/24 03:50 96 06/23/24 03:00 77 24 128/65 06/23/24 02:11 78 18 112/70 06/23/24 01:00 98.1 F 85 22 113/79 06/23/24 00:01 77 22 127/77 06/22/24 23:00 77 20 101/77 06/22/24 22:06 82 20 137/104 06/22/24 21:30 82 18 126/91 06/22/24 21:00 86 22 129/81 06/22/24 20:30 83 20 132/87 06/22/24 20:00 97.7 F 83 20 134/72 06/22/24 19:30 88 16 106/71 06/22/24 19:00 80 20 128/77 06/22/24 18:31 81 22 109/66 06/22/24 18:01 79 24 109/76 06/22/24 17:31 109 H 24 118/84 06/22/24 16:59 112 H 26 H 130/85 96 06/22/24 16:30 110 H 24 110/77 06/22/24 16:01 123 H 16 85/60 06/22/24 16:00 113 H 06/22/24 15:30 106 H 26 H 99/75 06/22/24 15:21 107 H 24 94/62 06/22/24 15:20 100 H 16 06/22/24 15:10 96 H 25 H 06/22/24 15:02 99 H 24 06/22/24 14:16 107 H 24 145/106 Pain Assessment - Last Documented Pain Intensity 1 Pain Scale Used 0-10 Pain Scale Intake and Output: Intake & Output 06/21/24 06/22/24 06/23/24 06/24/24 11:59 11:59 11:59 11:59 Intake Total 680 3466 Output Total 250 870 Balance 430 2596 Weight 66.7 kg 61.5 kg 61.5 kg Lab Results: Lab Results-Last 24 Hours 06/22/24 06/22/24 06/22/24 Range/Units 07:40 14:00 14:18 WBC (3.98-10.04) x10^3/uL RBC (3.93-5.22) x10^6/uL Hgb (11.2-15.7) g/dL Hct (34.1-44.9) % MCV (79.4-94.8) fL MCH (25.6-32.2) pg MCHC (32.2-35.5) g/dL RDW (11.7-14.4) % Plt Count (182-369) x10^3/uL MPV (9.4-12.3) fL Sodium 138 (135-145) mmol/L Potassium 4.5 (3.5-5.1) mmol/L Chloride 110 H (98-107) mmol/L Carbon Dioxide 18 L (22-30) mmol/L Anion Gap 15.0 (5-15) MEQ/L BUN 55 H (7-17) mg/dL Creatinine 0.84 (0.52-1.04) mg/dL Estimated GFR 72.0 ML/MIN Glucose 122 H (74-106) mg/dL Lactic Acid 3.2 H 3.4 H (0.4-2.0) Calcium 7.6 L (8.4-10.2) mg/dL Magnesium 2.1 (1.6-2.3) mg/dL Total Bilirubin 0.60 (0.2-1.3) mg/dL AST 136 H (14-36) U/L ALT 59 H (0-35) U/L Alkaline Phosphatase 52 (38-126) U/L Serum Total Protein 6.1 L (6.3-8.2) g/dL Albumin 3.1 L (3.5-5.0) g/dL 06/23/24 06/23/24 06/23/24 Range/Units 07:20 07:24 07:24 WBC 17.1 H (3.98-10.04) x10^3/uL RBC 4.37 (3.93-5.22) x10^6/uL Hgb 12.2 D (11.2-15.7) g/dL Hct 39.0 (34.1-44.9) % MCV 89.2 (79.4-94.8) fL MCH 27.9 (25.6-32.2) pg MCHC 31.3 L (32.2-35.5) g/dL RDW 15.1 H (11.7-14.4) % Plt Count 196 (182-369) x10^3/uL MPV 10.8 (9.4-12.3) fL Sodium 139 (135-145) mmol/L Potassium 4.5 (3.5-5.1) mmol/L Chloride 112 H (98-107) mmol/L Carbon Dioxide 16 L* (22-30) mmol/L Anion Gap 16.0 H (5-15) MEQ/L BUN 50 H (7-17) mg/dL Creatinine 0.71 (0.52-1.04) mg/dL Estimated GFR 88.1 ML/MIN Glucose 106 (74-106) mg/dL Lactic Acid 2.0 (0.4-2.0) Calcium 7.8 L (8.4-10.2) mg/dL Magnesium 2.3 (1.6-2.3) mg/dL Total Bilirubin 0.70 (0.2-1.3) mg/dL AST 178 H (14-36) U/L ALT 81 H (0-35) U/L Alkaline Phosphatase 50 (38-126) U/L Serum Total Protein 5.9 L (6.3-8.2) g/dL Albumin 3.0 L (3.5-5.0) g/dL Radiology Exams: Radiology Procedures Category Date Time Status CHEST 1 VIEW (PORTABLE) Stat Exams 06/21/24 11:32 Completed ECHO W/2D AND DOPPLER [US] Routine Exams 06/22/24 10:00 Taken Assessment/Plan (1) Sepsis Current Visit: Yes Status: Acute (2) UTI (urinary tract infection) Current Visit: Yes Status: Acute Code(s): N39.0 - URINARY TRACT INFECTION, SITE NOT SPECIFIED (3) Atrial fibrillation with RVR Current Visit: Yes Status: Acute Code(s): I48.91 - UNSPECIFIED ATRIAL FIBRILLATION (4) Elevated troponin Current Visit: Yes Status: Acute Code(s): R79.89 - OTHER SPECIFIED ABNORMAL FINDINGS OF BLOOD CHEMISTRY (5) Leukocytosis Current Visit: Yes Status: Acute Assessment & Plan: (1) Sepsis Current Visit: Yes Status: Acute Assessment & Plan: - Urosepsis - BC x2 pending - UC Gram + sensitivity pending - Lactic acid 3.2 today- recheck at 1400 - IV fluid bolus x2 today - ICU tele 06/23 - LA 2.0 - UC E-coli and villareal-sensitive- changing to oral antibiotic - BC x2 negative (2) UTI (urinary tract infection) Current Visit: Yes Status: Acute Assessment & Plan: - CBC, CMP reviewed - Merrem - BC x2 pending - + urosepsis - UC gram + sensitivity pending. 06/23 - UC E-coli and villareal-sensitive- changing to oral antibiotic - CBC, CMP reviewed - BC x2 negative Code(s): N39.0 - URINARY TRACT INFECTION, SITE NOT SPECIFIED (3) Atrial fibrillation with RVR Current Visit: Yes Status: Acute Assessment & Plan: - ICU tele - Per cardiology recs started Eliquis 5mg BID, and increased metoprolol to 50 BID - After 2nd cards note hold Eliquis d/t Echo findings - Echo findings per cardiology: The echo images which shows a small pericardial effusion with exudative material along the RV free wall in the pericardial fluid. I cannot tell if this is a old blood in the effusion. At this time, recommend holding off on anticoagulation/blood thinners. Repeat echo in 1-2 weeks with outpatient cardiology follow up - EF 55-60% 3/ - HR controlled - Tele - Tx to med-surg bed - Stopped ASA after discussion with cardiology as she was not on this previous to admission. - Keep K+ > 4 and Mg+ > 2 - replaced K+ Code(s): I48.91 - UNSPECIFIED ATRIAL FIBRILLATION (4) Elevated troponin Current Visit: Yes Status: Acute Assessment & Plan: - Trop 0.084, 0.103, 0.086, 0.090 - cardiology consult- reviwedd note and agree with plan of care - denies CP today - Echo - ICU tele - New on set a-fib RVR 3 - Tx to med-surg bed - Stopped ASA after discussion with cardiology as she was not on this previous to admission. Code(s): R79.89 - OTHER SPECIFIED ABNORMAL FINDINGS OF BLOOD CHEMISTRY (5) Leukocytosis Current Visit: Yes Status: Acute Assessment & Plan: - WBC 16.1- increased today - CBC, CMP reviewed - BC x2 pending - + urosepsis - UC gram + sensitivity pending. 06/23 - WBC 17.1- trend - UC + E-Coli - BC x2 negative - See above plan for UTI Code(s): D72.829 - ELEVATED WHITE BLOOD CELL COUNT, UNSPECIFIED Code(s): D72.829 - ELEVATED WHITE BLOOD CELL COUNT, UNSPECIFIED (6) Metabolic acidosis Current Visit: Yes Status: Acute Assessment & Plan: - Co2 16 - Sodium bicarb gtt started Code(s): E87.20 - ACIDOSIS, UNSPECIFIED (7) Elevated LFTs Current Visit: Yes Status: Acute Assessment & Plan: - Likely acute phase reaction from Urosepsis - AST 178, ALT 81- trend - IVF Code(s): R79.89 - OTHER SPECIFIED ABNORMAL FINDINGS OF BLOOD CHEMISTRY (8) Dehydration Current Visit: Yes Status: Acute Assessment & Plan: - Anion gap 16- trend - IVF VTE: Eliquis PPI: Protonix Next of KIN: Vilma Villeda [phone] D/C plan: 1-2 days Code status: Full Code(s): E86.0 - DEHYDRATION
[2024-06-23] MEDS: CEFTIN 500 MG PO SCH (17:12)
[2024-06-24 05:43] LABS: Hematocrit 35.6 % (34.1-44.9); Hemoglobin 11.5 g/dL (11.2-15.7); Mean Cell Volume 88.3 fL (79.4-94.8); Mean Corpuscular Hemoglobin 28.5 pg (25.6-32.2); Mean Corpuscular Hgb Concent. 32.3 g/dL (32.2-35.5); Platelet Count 205 x10^3/uL (182-369); Red Blood Count 4.03 x10^6/uL (3.93-5.22); Red Cell Distribution Width 15.3 % (11.7-14.4); White Blood Count 13.9 x10^3/uL (3.98-10.04)
[2024-06-24 06:06] LABS: ALBUMIN 2.9 g/dL (3.5-5.0); ANION GAP 9.5 MEQ/L (5-15); BILIRUBIN,TOTAL 0.7 mg/dL (0.2-1.3); Calcium 7.6 mg/dL (8.4-10.2); Creatinine 1 0.62 mg/dL (0.52-1.04); EST GLOMERULAR FILTRATION RATE 92.2 ML/MIN; Potassium 3.6 mmol/L (3.5-5.1); Total Protein 5.7 g/dL (6.3-8.2)
[2024-06-24 11:57] VITALS: BP 104/65; PULSE 72; RESP 21; TEMP 97.3; O2SAT 90
--- NOTE | 2024-06-24 12:14 | PCM.DS ---
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 She presented to the ED on 06/21/24 with generalized weakness and shortness of breath on exertion for 2 days. Patient denied chest pain, abdominal pain, nausea, vomiting, diarrhea, cough, or fever. In the ED, the initial twelve-lead EKG showed atrial fibrillation with RVR which improved after administration of Cardizem. She was also found to have a UTI. She denies recent dysuria, pyuria, or hematuria. Today HR back up to 130 and cardiology consulted and changed metoprolol to 50 BID. He also started Eliquis 5mg BID. Pt moved to ICU as she was having significant SOB with the HR increasing. Pt to have an Echo today. Repeat lactic acid 3.2 and 2 L IV fluid bolus started as pt has urosepsis. Continue Merrem for UTI. UC gram negative and sensitivity pending. WBC increased to 16.1 today. CO2 13, will recheck after IVF boluses. Consider bicarb gtt. Pt denies CP, abd. pain, N/V/D. 06/23/24 Pt resting in the chair. She is feeling much better. Lactic acid 2.0 today. Urine culture + E-Coli and villareal-sensitive. Will deescalate antibiotics and change to oral regimen. Co2 16 and bicarb gtt started. Echo shows EF 55-60%. Pt to be transferred out of ICU bed to med-surg today. She denies CP, SOB, abd. pain, N/V/D. 06/24/24 Pt sitting in chair and she reports she feels much better. Co2 improved, bicarb gtt stopped. WBC improved at 13.9. Liver enzymes remain elevated but improved. She denies any abd pain. She will need to f/u OP with PCP for repeat labs. She is medically stable and ready for d/c with [facility]. She denies CP, SOB, abd. pain, N/V/D. Will d/c with antibiotics. - Vitals & Intake/Output Vital Signs: Vital Signs Temperature 97.3 F 06/24/24 11:57 Pulse Rate 72 06/24/24 11:57 Respiratory Rate 21 06/24/24 11:57 Blood Pressure 104/65 06/24/24 11:57 O2 Sat by Pulse Oximetry 90 L 06/24/24 11:57 Intake & Output: Intake & Output 06/22/24 06/23/24 06/24/24 06/25/24 11:59 11:59 11:59 11:59 Intake Total 680 3466 Output Total 250 870 775 Balance 430 1926 -743 Weight 61.5 kg 61.5 kg - Lab Result Diagrams: 06/24/24 05:34 06/24/24 05:34 Lab Results-Last 24 Hrs: Lab Results-Last 24 Hours 06/24/24 06/24/24 Range/Units 05:34 05:34 WBC 13.9 H (3.98-10.04) x10^3/uL RBC 4.03 (3.93-5.22) x10^6/uL Hgb 11.5 (11.2-15.7) g/dL Hct 35.6 (34.1-44.9) % MCV 88.3 (79.4-94.8) fL MCH 28.5 (25.6-32.2) pg MCHC 32.3 (32.2-35.5) g/dL RDW 15.3 H (11.7-14.4) % Plt Count 205 (182-369) x10^3/uL MPV 11.0 (9.4-12.3) fL Sodium 138 (135-145) mmol/L Potassium 3.6 (3.5-5.1) mmol/L Chloride 102 (98-107) mmol/L Carbon Dioxide 31 H (22-30) mmol/L Anion Gap 9.5 (5-15) MEQ/L BUN 39 H (7-17) mg/dL Creatinine 0.62 (0.52-1.04) mg/dL Estimated GFR 92.2 ML/MIN Glucose 120 H (74-106) mg/dL Calcium 7.6 L (8.4-10.2) mg/dL Total Bilirubin 0.70 (0.2-1.3) mg/dL AST 166 H (14-36) U/L ALT 99 H (0-35) U/L Alkaline Phosphatase 51 (38-126) U/L Serum Total Protein 5.7 L (6.3-8.2) g/dL Albumin 2.9 L (3.5-5.0) g/dL Micro Results-Entire Visit: Microbiology 06/21/24 15:49 Urine Culture - Final Catherized Escherichia Coli 06/21/24 21:32 Blood Culture - Preliminary Blood 06/21/24 21:40 Blood Culture - Preliminary Blood - Procedures and Test Procedures and Tests throughout Hospitalization: Therapy Orders & Screens 06/21/24 21:12 EKG REPEAT IN AM Comment: 06/21/24 21:53 PT Eval & Treat ( Order) ONCE Reason for Eval:: debility Diagnosis: UTI, atrial fibrillation Discharge Exam General Appearance: no apparent distress, alert Neurologic Exam: alert, oriented x 3, cooperative, normal mood/affect, nml cerebellar function, sensation nml, No motor deficits Eye Exam: PERRL, EOMI, eyes nml inspection Ears, Nose, Throat Exam: normal ENT inspection, pharynx normal, moist mucous membranes Neck Exam: normal inspection, non-tender, supple, full range of motion Respiratory Exam: normal breath sounds, lungs clear, No respiratory distress Cardiovascular Exam: regular rate/rhythm, normal heart sounds Gastrointestinal/Abdomen Exam: soft, No tenderness, No mass Pelvic Exam: deferred Rectal Exam: deferred Back Exam: normal inspection, normal range of motion, No CVA tenderness, No vertebral tenderness Extremity Exam: normal inspection, normal range of motion Skin Exam: normal color, warm, dry Final Diagnosis/Problem List - Final Discharge Diagnosis/Problem (1) Sepsis Current Visit: Yes Status: Acute (2) UTI (urinary tract infection) Current Visit: Yes Status: Acute Code(s): N39.0 - URINARY TRACT INFECTION, SITE NOT SPECIFIED (3) Atrial fibrillation with RVR Current Visit: Yes Status: Acute Code(s): I48.91 - UNSPECIFIED ATRIAL FIBRILLATION (4) Elevated troponin Current Visit: Yes Status: Acute Code(s): R79.89 - OTHER SPECIFIED ABNORMAL FINDINGS OF BLOOD CHEMISTRY (5) Leukocytosis Current Visit: Yes Status: Acute Code(s): D72.829 - ELEVATED WHITE BLOOD CELL COUNT, UNSPECIFIED (6) Metabolic acidosis Current Visit: Yes Status: Acute Code(s): E87.20 - ACIDOSIS, UNSPECIFIED (7) Elevated LFTs Current Visit: Yes Status: Acute Code(s): R79.89 - OTHER SPECIFIED ABNORMAL FINDINGS OF BLOOD CHEMISTRY (8) Dehydration Current Visit: Yes Status: Acute Assessment & Plan: (1) Sepsis Current Visit: Yes Status: Acute Assessment & Plan: - Urosepsis - BC x2 pending - UC Gram + sensitivity pending - Lactic acid 3.2 today- recheck at 1400 - IV fluid bolus x2 today - ICU tele 3 - LA 2.0 - UC E-coli and villareal-sensitive- changing to oral antibiotic - BC x2 negative (2) UTI (urinary tract infection) Current Visit: Yes Status: Acute Assessment & Plan: - CBC, CMP reviewed - Merrem - BC x2 pending - + urosepsis - UC gram + sensitivity pending. 06/23 - UC E-coli and villareal-sensitive- changing to oral antibiotic - CBC, CMP reviewed - BC x2 negative 06/24 - CBC, CMP reviewed Code(s): N39.0 - URINARY TRACT INFECTION, SITE NOT SPECIFIED (3) Atrial fibrillation with RVR Current Visit: Yes Status: Acute Assessment & Plan: - ICU tele - Per cardiology recs started Eliquis 5mg BID, and increased metoprolol to 50 BID - After 2nd cards note hold Eliquis d/t Echo findings - Echo findings per cardiology: The echo images which shows a small pericardial effusion with exudative material along the RV free wall in the pericardial fluid. I cannot tell if this is a old blood in the effusion. At this time, recommend holding off on anticoagulation/blood thinners. Repeat echo in 1-2 weeks with outpatient cardiology follow up - EF 55-60% 06/23 - HR controlled - Tele - Tx to med-surg bed - Stopped ASA after discussion with cardiology as she was not on this previous to admission. - Keep K+ > 4 and Mg+ > 2 - replaced K+ 06/24 - stable - F/U OP with cardiology Code(s): I48.91 - UNSPECIFIED ATRIAL FIBRILLATION (4) Elevated troponin Current Visit: Yes Status: Acute Assessment & Plan: - Trop 0.084, 0.103, 0.086, 0.090 - cardiology consult- reviewed note and agree with plan of care - denies CP today - Echo - ICU tele - New on set a-fib RVR 06/23 - Tx to med-surg bed - Stopped ASA after discussion with cardiology as she was not on this previous to admission. Code(s): R79.89 - OTHER SPECIFIED ABNORMAL FINDINGS OF BLOOD CHEMISTRY (5) Leukocytosis Current Visit: Yes Status: Acute Assessment & Plan: - WBC 16.1- increased today - CBC, CMP reviewed - BC x2 pending - + urosepsis - UC gram + sensitivity pending. 06/23 - WBC 17.1- trend - UC + E-Coli - BC x2 negative - See above plan for UTI 06/24 - WBC 13.9- improved Code(s): D72.829 - ELEVATED WHITE BLOOD CELL COUNT, UNSPECIFIED (6) Metabolic acidosis Current Visit: Yes Status: Acute Assessment & Plan: - Co2 16 - Sodium bicarb gtt started 06/24 - resolved Code(s): E87.20 - ACIDOSIS, UNSPECIFIED (7) Elevated LFTs Current Visit: Yes Status: Acute Assessment & Plan: - Likely acute phase reaction from Urosepsis - AST 178, ALT 81- trend - IVF 06/24 - AST 166, ALT 99 - Will need OP f/u labs Code(s): R79.89 - OTHER SPECIFIED ABNORMAL FINDINGS OF BLOOD CHEMISTRY (8) Dehydration Current Visit: Yes Status: Acute Assessment & Plan: - Anion gap 16- trend - IVF 06/24 - resolved Code(s): E86.0 - DEHYDRATION - Discharge Discharge Date: 06/24/24 Disposition: Home, Self-Care Condition: Serious Prescriptions: New Metoprolol Tartrate 50 mg [Lopressor 50 MG] 50 mg PO BID 30 Days #60 tablet Calcium Carbonate 750 mg [Tums EX 750 MG] 750 mg PO BID 5 Days #10 tablet cefuroxime axetiL [Cefuroxime] 500 mg PO BID 7 Days #14 tablet Instructions: Urinary tract infection - Discharge instructions, Atrial fibrillation - Discharge instructions Additional Instructions: [facility] FOR YOU. THEY WILL CALL YOU TO ARRANGE A TIME TO COME SEE YOU. THEIR PHONE NUMBER IS [phone] IF YOUR NEED ANYTHING PRIOR TO THEIR FIRST VISIT Echo findings per cardiology: The echo images which shows a small pericardial effusion with exudative material along the RV free wall in the pericardial fluid. I cannot tell if this is a old blood in the effusion. At this time, recommend holding off on anticoagulation/blood thinners. Repeat echo in 1-2 weeks with outpatient cardiology follow up. Follow up with: SONJA PALMA [CONSULTING PHYSICIAN] - 06/30/24 11:15 am ([place] [facility]) DANA SALDAÑA MD [Primary Care Provider] - 07/01/24 8:15 am Forms: Discharge Instructions
== END 2024-06-24 13:14 | disposition home health service (06) | DRG 872 ==
LOC: ED 11:01 → MED SURG 20:44 → OBSVTOIN 20:44 → ICU 06-22 09:19
PROVIDERS: ADMIT Internal Medicine; ATTEND Internal Medicine
DX: A41.9 Sepsis, unspecified organism (principal); I48.20 Chronic atrial fibrillation, unspecified; N39.0 Urinary tract infection, site not specified; E87.20 Acidosis, unspecified; R79.89 Other specified abnormal findings of blood chemistry; B96.20 Unspecified Escherichia coli [E. coli] as the cause of diseases classified elsewhere; R53.1 Weakness; R06.02 Shortness of breath; D72.829 Elevated white blood cell count, unspecified; E86.0 Dehydration; Z87.39 Personal history of other diseases of the musculoskeletal system and connective tissue
CPT/HCPCS: 36415; 71045; 80053; 81001; 82947; 83605; 83690; 83735; 83880; 84443; 84484; 85025; 85027; 85610; 87040; 87077; 87086; 87186; 93005; 93306; 94760; 96374; 96375; 97162; 97530; 99291; Q3014; 99285; J1650; J2405; A9270-GY

== ENCOUNTER 2025-02-23 11:52 | Observation (INO) | payer MEDICARE ==
[2025-02-23 12:40] LABS: BASOPHIL % 1.0 % (0.1-1.2); Basophil (Absolute #) 0.08 x10^3/uL (0.01-0.08); Eosinophil (Absolute #) 0.06 x10^3/uL (0.04-0.36); Hematocrit 36.5 % (34.1-44.9); Hemoglobin 12.0 g/dL (11.2-15.7); IMMATURE GRAN # 0.07 x10^3u/L (0.001-0.031); IMMATURE GRAN % 0.8 % (0.001-0.429); Lymphocyte (Absolute #) 1.07 x10^3/uL (1.18-3.74); Mean Corpuscular Hemoglobin 30.6 pg (25.6-32.2); Mean Corpuscular Hgb Concent. 32.9 g/dL (32.2-35.5); Monocyte (Absolute #) 0.93 x10^3/uL (0.24-0.86); NUCLEATED RBC # 0.00 x10^3u/L (0.00-0.012); NUCLEATED RBC % 0.0 % (0.00-0.2); Platelet Count 217 x10^3/uL (182-369); Red Blood Count 3.92 x10^6/uL (3.93-5.22); White Blood Count 8.4 x10^3/uL (3.98-10.04)
[2025-02-23 12:47] LABS: Glucose, Urine Negative (Negative); Protein,Urine Dip Negative (Negative); RBC 0-2 /HPF (0-5)
--- NOTE | 2025-02-23 12:56 | XRAY ---
Indication: Short of breath. Comparison: October 28, 2024 Portable chest remains hyperinflated and clear with incidental right base calcified granuloma. Heart not enlarged. Bony thorax intact again with osteopenia. No new/acute findings.
[2025-02-23 12:57] LABS: Calcium 9.2 mg/dL (8.4-10.2); Carbon Dioxide 27.0 mmol/L (22-30); Creatinine 1 0.56 mg/dL (0.52-1.04); EST GLOMERULAR FILTRATION RATE 93.9 ML/MIN; Glucose 103.0 mg/dL (74-106); Potassium 4.6 mmol/L (3.5-5.1); SGOT/AST 66.0 U/L (14-36); SGPT/ALT 90.0 U/L (0-35); Total Protein 7.9 g/dL (6.3-8.2)
[2025-02-23 13:09] LABS: NT PRO BNPII 198 pg/mL (<300); TROPONIN < 0.012 ng/mL (0.000-0.033)
--- NOTE | 2025-02-23 13:51 | ERPHSYRPT ---
- History of Present Illness Time Seen by Provider: 02/23/25 13:51 Source: patient Exam Limitations: no limitations Patient Subjective Stated Complaint: Pt. states, "I haven't felt good for a couple of weeks, I get dizzy and lightheaded when I stand up. My urine is strong and dark in color." Triage Nursing Assessment: Pt. arrives via ambulance, A&Ox3, Skin P/W/D, Resp. even unlabored, No edeam, pt. able to speak in full sentences, ambulated into restroom with assist x 1, continent of Bladder. Bruise present on left elbow from recent fall. Pt. has a intermediate project manager feeding tube. Physician History: 79-year-old female history of A-fib on Eliquis, stroke presents to our ED via EMS for evaluation of dizziness and lightheadedness x 2 weeks. Patient states symptoms are worse when she transitions from sit to stand. Patient adds that her urine is dark and has a foul odor. No chest pain or shortness of breath. No nausea vomiting or diaphoresis. Symptoms are mild to moderate in intensity. No specific worsening or improving factors. Patient otherwise feels well. She voices no other complaints or concerns at this time. Portions of this note were created with voice recognition technology. There may be grammatical, spelling, punctuation or sound alike errors Timing/Duration: today Severity: moderate Modifying Factors: Improves With: nothing Associated Symptoms: denies symptoms Allergies/Adverse Reactions: No Known Drug Allergies Allergy (Verified 06/21/24 11:12) Home Medications: Apixaban [Eliquis] 5 mg PO BID 10/28/24 [History] Atorvastatin Calcium [Lipitor] 80 mg PO HS 10/28/24 [History] Lorazepam [Ativan] 1 mg PO Q6H PRN PRN 11/26/24 [History] Famotidine 20 mg PO BID 02/23/25 [History] PARoxetine HCL [Paxil] 10 mg PO DAILY 02/23/25 [History] Trazodone HCl 50 mg [Desyrel 50 mg] 50 mg PO HS 02/23/25 [History] Hx Tetanus, Diphtheria Vaccination/Date Given: No Hx Influenza Vaccination/Date Given: Yes Hx Pneumococcal Vaccination/Date Given: No Travel Risk - International Travel Have you traveled outside of the country in past 3 weeks: No - Emerging Infectious Disease Are you exhibiting symptoms associated with any current EIDs: No Symptoms: Shortness of Breath - Review of Systems All Other Systems: Reviewed and Negative - Past Medical History Pertinent Past Medical History: Yes Neurological History: Stroke ENT History: Cataracts Cardiac History: No Pertinent History Respiratory History: No Pertinent History Endocrine Medical History: No Pertinent History Musculoskeletal History: No Pertinent History GI Medical History: No Pertinent History History: No Pertinent History Psycho-Social History: No Pertinent History Female Reproductive Disorders: No Pertinent History - Past Surgical History Past Surgical History: Yes Significant Family History: no pertinent family hx - Social History Smoking Status: Never smoker Exposure to second hand smoke: No Drug Use: none - Social Determinants of Health Will the patient participate in the screening: Declined to provide Do you worry about a steady place to live?: No In the past 12 months,have you had to go without utilities?: No Transportation Issues: No Has anyone in your support network made you feel unsafe?: No Have you or anyone in your house had to go w/o enough food: No - Nursing Vital Signs Nursing Vital Signs: Initial Vital Signs Temperature 98.6 F 02/23/25 11:58 Pulse Rate 63 02/23/25 11:58 Respiratory Rate 18 02/23/25 11:58 Blood Pressure 141/54 02/23/25 11:58 O2 Sat by Pulse Oximetry 98 02/23/25 11:58 Pain Scale Pain Intensity 0 - Physical Exam General Appearance: no apparent distress, alert Eye Exam: PERRL/EOMI, eyes nml inspection Ears, Nose, Throat Exam: normal ENT inspection, moist mucous membranes Neck Exam: normal inspection, full range of motion Respiratory Exam: normal breath sounds, lungs clear, No respiratory distress Cardiovascular Exam: regular rate/rhythm, normal heart sounds, normal peripheral pulses Gastrointestinal/Abdomen Exam: soft, normal bowel sounds, No tenderness, No mass Back Exam: normal inspection, normal range of motion, No CVA tenderness, No vertebral tenderness Extremity Exam: normal inspection, normal range of motion, pelvis stable Neurologic Exam: alert, oriented x 3, cooperative, normal mood/affect, sensation nml, No motor deficits Skin Exam: normal color, warm, dry, No rash Lymphatic Exam: No adenopathy SpO2 Interpretation: normal SpO2: 100 O2 Delivery: Room Air - Course Nursing assessment & vital signs reviewed: Yes EKG Interpreted by Me: RATE (58), Sinus Rhythm, NORMAL AXIS, NORMAL INTERVALS, NORMAL QRS - Radiology Exams Chest X-ray Interpretation: Teleradiologist Report (Lung granuloma. Otherwise no new or acute findings) - CT Exams Head CT Interpretation: Tele-radiologist Report (: Stable nonacute senile brain with old infarct left) Ordered Tests: Active Orders 24 hr Category Date Time Status Data Services Developer STAT Care 02/23/25 12:19 Active EKG-ER Only STAT Care 02/23/25 12:18 Active IV Insertion STAT Care 02/23/25 12:18 Active Pulse Oximetry (ED) STAT Care 02/23/25 12:18 Active CHEST 1 VIEW (PORTABLE) Stat Exams 02/23/25 12:19 Completed HEAD WITHOUT CONTRAST [CT] Stat Exams 02/23/25 13:57 Completed CBC W DIFF Stat Lab 02/23/25 12:30 Completed CMP Stat Lab 02/23/25 12:30 Completed CULTURE,URINE Stat Lab 02/23/25 11:05 Received Lactic Acid Stat Lab 02/23/25 12:35 Completed MAGNESIUM Stat Lab 02/23/25 12:30 Completed NT PRO BNPII Stat Lab 02/23/25 12:30 Completed TROPONIN Q4H Lab 02/23/25 12:30 Completed TROPONIN Q4H Lab 02/23/25 16:30 Ordered TROPONIN Q4H Lab 02/23/25 20:30 Ordered UA W/RFX UR CULTURE Stat Lab 02/23/25 11:05 Completed Transfer Order Routine Transfer 02/23/25 Ordered Medication Summary Generic Name Dose Route Start Last Admin Trade Name Freq PRN Reason Stop Dose Admin Sodium Chloride 1,000 mls @ 100 mls/hr 02/23/25 12:30 02/23/25 12:34 Sodium Chloride 0.9% 1000 Ml IV 03/25/25 12:29 100 mls/hr .Q10H ESTRADA Administration Discontinued Medications Generic Name Dose Route Start Last Admin Trade Name Freq PRN Reason Stop Dose Admin Ceftriaxone Sodium 1 gm in 100 mls @ 200 mls/hr 02/23/25 13:59 02/23/25 14:56 Rocephin 1 Gm / 100 Ml Nacl IV 02/23/25 14:28 Infused STAT ONE Infusion Ceftriaxone Sodium Confirm 02/23/25 14:19 Rocephin 1 Gm / 100 Ml Nacl Administered 02/23/25 14:20 Dose 1 gm in 100 mls @ ud IV .STK-MED ONE Lab/Rad Data: Laboratory Result Diagrams 02/23/25 12:30 02/23/25 12:30 Laboratory Results 02/23/25 02/23/25 02/23/25 Range/Units 12:35 12:30 12:30 WBC (3.98-10.04) x10^3/uL RBC (3.93-5.22) x10^6/uL Hgb (11.2-15.7) g/dL Hct (34.1-44.9) % MCV (79.4-94.8) fL MCH (25.6-32.2) pg MCHC (32.2-35.5) g/dL RDW (11.7-14.4) % Plt Count (182-369) x10^3/uL MPV (9.4-12.3) fL Gran % (34.0-71.1) % Immature Gran % (Auto) (0.001-0.429) % Nucleat RBC Rel Count (0.00-0.2) % Eos # (Auto) (0.04-0.36) x10^3/uL Immature Gran # (Auto) (0.001-0.031) x10^3u/L Absolute Lymphs (auto) (1.18-3.74) x10^3/uL Absolute Monos (auto) (0.24-0.86) x10^3/uL Absolute Nucleated RBC (0.00-0.012) x10^3u/L Lymphocytes % (19.3-51.7) % Monocytes % (4.7-12.5) % Eosinophils % (0.7-5.8) % Basophils % (0.1-1.2) % Absolute Granulocytes (1.56-6.13) x10^3/uL Basophils # (0.01-0.08) x10^3/uL Sodium 135 (135-145) mmol/L Potassium 4.6 (3.5-5.1) mmol/L Chloride 101 (98-107) mmol/L Carbon Dioxide 27 (22-30) mmol/L Anion Gap 11.3 (5-15) MEQ/L BUN 20 H (7-17) mg/dL Creatinine 0.56 (0.52-1.04) mg/dL Estimated GFR 93.9 ML/MIN Glucose 103 (74-106) mg/dL Lactic Acid 1.3 (0.4-2.0) Calcium 9.2 (8.4-10.2) mg/dL Magnesium 2.2 (1.6-2.3) mg/dL Total Bilirubin 1.20 (0.2-1.3) mg/dL AST 66 H (14-36) U/L ALT 90 H (0-35) U/L Alkaline Phosphatase 205 H (38-126) U/L Troponin I < 0.012 (0.000-0.033) ng/mL NT-Pro-B Natriuret Pep 198 (<300) pg/mL Serum Total Protein 7.9 (6.3-8.2) g/dL Albumin 4.1 (3.5-5.0) g/dL Urine Color (Yellow) Urine Appearance (Clear) Urine pH (4.6-8.0) Ur Specific [place] (1.005-1.030) Urine Protein (Negative) Urine Glucose (UA) (Negative) mg/dL Urine Ketones (Negative) Urine Blood (Negative) Urine Nitrite (Negative) Urine Bilirubin (Negative) Urine Urobilinogen (0.2) mg/dL Ur Leukocyte Esterase (Negative) U Hyaline Cast (Auto) (0-2) /LPF Urine Microscopic RBC (0-5) /HPF Urine Microscopic WBC (0-5) /HPF Ur Epithelial Cells (None Seen) /HPF Urine Bacteria (None Seen) /HPF Urine Culture Reflexed (NO) 02/23/25 02/23/25 Range/Units 12:30 11:05 WBC 8.4 (3.98-10.04) x10^3/uL RBC 3.92 L (3.93-5.22) x10^6/uL Hgb 12.0 (11.2-15.7) g/dL Hct 36.5 (34.1-44.9) % MCV 93.1 (79.4-94.8) fL MCH 30.6 (25.6-32.2) pg MCHC 32.9 (32.2-35.5) g/dL RDW 13.6 (11.7-14.4) % Plt Count 217 (182-369) x10^3/uL MPV 10.8 (9.4-12.3) fL Gran % 73.6 H (34.0-71.1) % Immature Gran % (Auto) 0.8 H (0.001-0.429) % Nucleat RBC Rel Count 0.0 (0.00-0.2) % Eos # (Auto) 0.06 (0.04-0.36) x10^3/uL Immature Gran # (Auto) 0.07 H (0.001-0.031) x10^3u/L Absolute Lymphs (auto) 1.07 L (1.18-3.74) x10^3/uL Absolute Monos (auto) 0.93 H (0.24-0.86) x10^3/uL Absolute Nucleated RBC 0.00 (0.00-0.012) x10^3u/L Lymphocytes % 12.8 L (19.3-51.7) % Monocytes % 11.1 (4.7-12.5) % Eosinophils % 0.7 (0.7-5.8) % Basophils % 1.0 (0.1-1.2) % Absolute Granulocytes 6.16 H (1.56-6.13) x10^3/uL Basophils # 0.08 (0.01-0.08) x10^3/uL Sodium (135-145) mmol/L Potassium (3.5-5.1) mmol/L Chloride (98-107) mmol/L Carbon Dioxide (22-30) mmol/L Anion Gap (5-15) MEQ/L BUN (7-17) mg/dL Creatinine (0.52-1.04) mg/dL Estimated GFR ML/MIN Glucose (74-106) mg/dL Lactic Acid (0.4-2.0) Calcium (8.4-10.2) mg/dL Magnesium (1.6-2.3) mg/dL Total Bilirubin (0.2-1.3) mg/dL AST (14-36) U/L ALT (0-35) U/L Alkaline Phosphatase (38-126) U/L Troponin I (0.000-0.033) ng/mL NT-Pro-B Natriuret Pep (<300) pg/mL Serum Total Protein (6.3-8.2) g/dL Albumin (3.5-5.0) g/dL Urine Color Yellow (Yellow) Urine Appearance Cloudy A (Clear) Urine pH 7.5 (4.6-8.0) Ur Specific [place] 1.020 (1.005-1.030) Urine Protein Negative (Negative) Urine Glucose (UA) Negative (Negative) mg/dL Urine Ketones Negative (Negative) Urine Blood Negative (Negative) Urine Nitrite Negative (Negative) Urine Bilirubin Negative (Negative) Urine Urobilinogen 0.2 (0.2) mg/dL Ur Leukocyte Esterase Moderate A (Negative) U Hyaline Cast (Auto) NONE SEEN (0-2) /LPF Urine Microscopic RBC 0-2 (0-5) /HPF Urine Microscopic WBC 6-10 A (0-5) /HPF Ur Epithelial Cells None Seen (None Seen) /HPF Urine Bacteria None Seen (None Seen) /HPF Urine Culture Reflexed YES (NO) - Progress Progress: improved Progress Note: 79-year-old female history of A-fib on Eliquis, stroke presents to our ED via EMS for evaluation of dizziness and lightheadedness x 2 weeks. Patient states symptoms are worse when she transitions from sit to stand. Physical exam nonremarkable. Workup reveals a urinary tract infection dehydration. Patient received a gram Rocephin. IV fluids infusing. Patient feels better however she states she is too weak to go home. CT head negative for acute intracranial pathology. Patient adds that she lives alone. Case discussed with hospitalist who accepts admission to observation 2:56 PM. Plan of care discussed with patient. She agrees to admission at [facility] for further evaluation and treatment. Portions of this note were created with voice recognition technology. There may be grammatical, spelling, punctuation or sound alike errors Differential diagnosis includes for generalized weakness includes dehydration, metabolic abnormality, stroke, neuromuscular disease Complexity of problems addressed is moderate acute complicated. No critical care time. Complexity of data reviewed and analyzed is extensive. Test ordered chest reviewed results analyzed and correlated clinically with history and physical exam. Management discussed with hospitalist who accepts admission to observation at 2:56 PM. Risk of complication at risk of morbidity/mortality of patient management is high. Patient requires hospitalization for further evaluation and treatment. Vital stable. Time spent to admit patient is approximately 20 minutes. Plan of care established for shared decision making. No social determinants of health present to impede follow-up. Portions of this note were created with voice recognition technology. There may be grammatical, spelling, punctuation or sound alike errors 02/23/25 14:46 02/23/25 15:03 Counseled pt/family regarding: lab results, diagnosis, rad results - Departure Departure Disposition: Observation Clinical Impression: Lung granuloma, UTI (urinary tract infection), Dehydration, Generalized weakness, Dizziness Condition: Stable Critical Care Time: No Referrals: DELPHINE PERRY DO [Primary Care Provider, [facility]] - Follow up/PCP as directed
[2025-02-23] MEDS ORDERED: ROCEPHIN 1 GM / 100 ML NaCl 1 GM/100 ML IVPB IV ONE (14:19)
[2025-02-23] MEDS: ROCEPHIN 1 GM / 100 ML NaCl 1 GM/100 ML IVPB IV ONE (14:21)
--- NOTE | 2025-02-23 15:25 | XRAY ---
Indication: Dizziness. Negative CTA neck and negative CTA head exams November 26, 2024. Multiple contiguous axial images obtained through the head without contrast. Comparison: November 26, 2024 Again age-appropriate global atrophy, mild periventricular degenerative microischemia bilaterally, old lacunar infarct left basal ganglia, and small focus old infarct left insula/operculum. No acute intracranial hemorrhage, abnormal extra-axial fluid collection, or mass effect. 4th ventricle is midline without hydrocephalus. Bony calvarium intact. Visualized paranasal sinuses and mastoid air cells are clear. Impression: Stable nonacute senile brain with old infarct left insula/operculum and old lacunar infarct left basal ganglia.
--- NOTE | 2025-02-23 16:16 | PCM.HP ---
<MATTHEW SIMON - Last Filed: 02/23/25 16:10> History of Present Illness - Chief Complaint Chief Complaint: weakness/UTI Date: 02/23/25 History of Present Illness: is a 79 year old female with a pmhx of stroke with residual dysphagia (feeding tube), atrial fibrillation on Eliquis, and hyperlipidemia diagnosed three weeks ago. She presented to the emergency department reporting that she hasnt felt good in a couple of weeks, describing generalized malaise, dizziness, and lightheadedness, particularly upon standing, and unsteady gait at times suggesting a possible orthostatic component. She did report that she fell last week. No head injury; fell to her left side and had some left elbow pain and bruising which has mostly resolved. She also noted that her urine had become dark and strong-smelling. Patient also reports anxiety and that she was recently started on Paxil about 3 weeks ago. She denied chest pain, shortness of breath, fever, chills, or syncope. The patient continues to experience dysphagia related to her prior stroke and remains on tube feedings, though she can tolerate limited soft foods. She expressed interest in increasing her oral intake and specifically requested a speech therapy evaluation to determine whether her diet can be safely advanced. On arrival, vital signs were stable. Orthostatic vitals negative. Labs remarkable for AST 66, ALT 90 (both lower than prior admissions), alkaline phosphatase 205, and BUN 20. Urinalysis was positive for moderate leukocytes, consistent with urinary tract infection. Chest X-ray revealed no acute cardiopulmonary findings. Head CT without contrast demonstrated stable, non- acute senescent changes with an old infarct in the left insula and operculum and a remote lacunar infarct in the left basal ganglia. No acute intracranial abnormality was identified. EKG showed sinus rhythm with normal axis, intervals, and QRS duration, without ischemic changes. The patient received ceftriaxone and IV fluids in the emergency department, reporting mild improvement in her lightheadedness. - Review of Systems Constitutional: Weakness Eyes: No Symptoms Ears, Nose, & Throat: No Symptoms Respiratory: No Symptoms Cardiac: No Symptoms Abdominal/Gastrointestinal: No Symptoms, Other (feeding tube ) Genitourinary Symptoms: No Symptoms Musculoskeletal: No Symptoms Skin: No Symptoms Neurological: Dizziness Psychological: Anxiety Endocrine: No Symptoms Hematologic/Lymphatic: No Symptoms Immunological/Allergic: No Symptoms Medications & Allergies Home Medications: Home Medication List Apixaban [Eliquis] 5 mg PO BID 10/28/24 [History Confirmed 02/23/25] Atorvastatin Calcium [Lipitor] 80 mg PO HS 10/28/24 [History Confirmed 02/23/25] ALPRAZolam [Alprazolam] 0.5 mg PO BIDPRN PRN 02/23/25 [History Confirmed 02/23/25] Famotidine 20 mg PO BID 02/23/25 [History Confirmed 02/23/25] Metoprolol Tartrate 25 mg [Lopressor 25MG Tab] 1 tab PO BID 02/23/25 [History Confirmed 02/23/25] PARoxetine HCL [Paxil] 10 mg PO QHS 02/23/25 [History Confirmed 02/23/25] Trazodone HCl 50 mg [Desyrel 50 mg] 50 mg PO HS 02/23/25 [History Confirmed 02/23/25] Allergies/Adverse Reactions: Allergies Allergy/AdvReac Type Severity Reaction Status Date / Time No Known Drug Allergies Allergy Verified 06/21/24 11:12 - Past Medical History Past Medical History: Yes Neurological History: Stroke ENT History: Cataracts Cardiac History: No Pertinent History Respiratory History: No Pertinent History Endocrine Medical History: No Pertinent History Musculoskelatal History: No Pertinent History GI Medical History: No Pertinent History History: No Pertinent History Pyscho-Social History: No Pertinent History Reproductive Disorders: No Pertinent History - Past Surgical History Past Surgical History: Yes Significant Family History: heart disease - Social History Smoking Status: Never smoker Exposure to second hand smoke: No Alcohol: None Drug Use: none - Social Determinants of Health Will the patient participate in the screening: Declined to provide Do you worry about a steady place to live?: No In the past 12 months,have you had to go without utilities?: No Have you or anyone in your house had to go without enough: No Transportation Issues: No Has anyone in your support network made you feel unsafe?: No Does the patient want assistance with any of the above?: No - Physical Exam Vital Signs: Vital Signs - 24 hr Temp Pulse Resp BP BP Pulse Ox 02/23/25 15:42 100 02/23/25 15:30 119/51 02/23/25 15:21 57 L 15 133/53 100 02/23/25 14:30 68 18 126/47 99 02/23/25 14:00 57 L 16 120/52 100 02/23/25 13:31 69 16 121/55 100 02/23/25 13:06 58 L 18 118/52 100 02/23/25 13:05 62 23 98 02/23/25 13:02 71 16 99 02/23/25 12:30 56 L 18 127/61 100 02/23/25 12:18 99 02/23/25 12:03 54 L 18 141/54 75 L 02/23/25 12:02 81 L 02/23/25 11:58 98.6 F 63 18 141/54 98 General Appearance: no apparent distress Neurologic Exam: alert, oriented x 3, cooperative Eye Exam: PERRL/EOMI Ears, Nose, Throat Exam: normal ENT inspection Neck Exam: normal inspection Respiratory Exam: normal breath sounds, lungs clear Cardiovascular Exam: regular rate/rhythm, normal heart sounds Gastrointestinal/Abdomen Exam: other (PEG tube) Pelvic Exam: not done Rectal Exam: deferred Back Exam: normal inspection Extremity Exam: normal inspection Skin Exam: pale Results - Labs Lab/Micro Results: Lab Results-Last 24 Hours 02/23/25 02/23/25 02/23/25 Range/Units 11:05 12:30 12:30 WBC 8.4 (3.98-10.04) x10^3/uL RBC 3.92 L (3.93-5.22) x10^6/uL Hgb 12.0 (11.2-15.7) g/dL Hct 36.5 (34.1-44.9) % MCV 93.1 (79.4-94.8) fL MCH 30.6 (25.6-32.2) pg MCHC 32.9 (32.2-35.5) g/dL RDW 13.6 (11.7-14.4) % Plt Count 217 (182-369) x10^3/uL MPV 10.8 (9.4-12.3) fL Gran % 73.6 H (34.0-71.1) % Immature Gran % (Auto) 0.8 H (0.001-0.429) % Nucleat RBC Rel Count 0.0 (0.00-0.2) % Eos # (Auto) 0.06 (0.04-0.36) x10^3/uL Immature Gran # (Auto) 0.07 H (0.001-0.031) x10^3u/L Absolute Lymphs (auto) 1.07 L (1.18-3.74) x10^3/uL Absolute Monos (auto) 0.93 H (0.24-0.86) x10^3/uL Absolute Nucleated RBC 0.00 (0.00-0.012) x10^3u/L Lymphocytes % 12.8 L (19.3-51.7) % Monocytes % 11.1 (4.7-12.5) % Eosinophils % 0.7 (0.7-5.8) % Basophils % 1.0 (0.1-1.2) % Absolute Granulocytes 6.16 H (1.56-6.13) x10^3/uL Basophils # 0.08 (0.01-0.08) x10^3/uL Sodium 135 (135-145) mmol/L Potassium 4.6 (3.5-5.1) mmol/L Chloride 101 (98-107) mmol/L Carbon Dioxide 27 (22-30) mmol/L Anion Gap 11.3 (5-15) MEQ/L BUN 20 H (7-17) mg/dL Creatinine 0.56 (0.52-1.04) mg/dL Estimated GFR 93.9 ML/MIN Glucose 103 (74-106) mg/dL Lactic Acid (0.4-2.0) Calcium 9.2 (8.4-10.2) mg/dL Magnesium 2.2 (1.6-2.3) mg/dL Total Bilirubin 1.20 (0.2-1.3) mg/dL AST 66 H (14-36) U/L ALT 90 H (0-35) U/L Alkaline Phosphatase 205 H (38-126) U/L Troponin I (0.000-0.033) ng/mL NT-Pro-B Natriuret Pep (<300) pg/mL Serum Total Protein 7.9 (6.3-8.2) g/dL Albumin 4.1 (3.5-5.0) g/dL Urine Color Yellow (Yellow) Urine Appearance Cloudy A (Clear) Urine pH 7.5 (4.6-8.0) Ur Specific Hyden 1.020 (1.005-1.030) Urine Protein Negative (Negative) Urine Glucose (UA) Negative (Negative) mg/dL Urine Ketones Negative (Negative) Urine Blood Negative (Negative) Urine Nitrite Negative (Negative) Urine Bilirubin Negative (Negative) Urine Urobilinogen 0.2 (0.2) mg/dL Ur Leukocyte Esterase Moderate A (Negative) U Hyaline Cast (Auto) NONE SEEN (0-2) /LPF Urine Microscopic RBC 0-2 (0-5) /HPF Urine Microscopic WBC 6-10 A (0-5) /HPF Ur Epithelial Cells None Seen (None Seen) /HPF Urine Bacteria None Seen (None Seen) /HPF Urine Culture Reflexed YES (NO) 02/23/25 02/23/25 Range/Units 12:30 12:35 WBC (3.98-10.04) x10^3/uL RBC (3.93-5.22) x10^6/uL Hgb (11.2-15.7) g/dL Hct (34.1-44.9) % MCV (79.4-94.8) fL MCH (25.6-32.2) pg MCHC (32.2-35.5) g/dL RDW (11.7-14.4) % Plt Count (182-369) x10^3/uL MPV (9.4-12.3) fL Gran % (34.0-71.1) % Immature Gran % (Auto) (0.001-0.429) % Nucleat RBC Rel Count (0.00-0.2) % Eos # (Auto) (0.04-0.36) x10^3/uL Immature Gran # (Auto) (0.001-0.031) x10^3u/L Absolute Lymphs (auto) (1.18-3.74) x10^3/uL Absolute Monos (auto) (0.24-0.86) x10^3/uL Absolute Nucleated RBC (0.00-0.012) x10^3u/L Lymphocytes % (19.3-51.7) % Monocytes % (4.7-12.5) % Eosinophils % (0.7-5.8) % Basophils % (0.1-1.2) % Absolute Granulocytes (1.56-6.13) x10^3/uL Basophils # (0.01-0.08) x10^3/uL Sodium (135-145) mmol/L Potassium (3.5-5.1) mmol/L Chloride (98-107) mmol/L Carbon Dioxide (22-30) mmol/L Anion Gap (5-15) MEQ/L BUN (7-17) mg/dL Creatinine (0.52-1.04) mg/dL Estimated GFR ML/MIN Glucose (74-106) mg/dL Lactic Acid 1.3 (0.4-2.0) Calcium (8.4-10.2) mg/dL Magnesium (1.6-2.3) mg/dL Total Bilirubin (0.2-1.3) mg/dL AST (14-36) U/L ALT (0-35) U/L Alkaline Phosphatase (38-126) U/L Troponin I < 0.012 (0.000-0.033) ng/mL NT-Pro-B Natriuret Pep 198 (<300) pg/mL Serum Total Protein (6.3-8.2) g/dL Albumin (3.5-5.0) g/dL Urine Color (Yellow) Urine Appearance (Clear) Urine pH (4.6-8.0) Ur Specific Hyden (1.005-1.030) Urine Protein (Negative) Urine Glucose (UA) (Negative) mg/dL Urine Ketones (Negative) Urine Blood (Negative) Urine Nitrite (Negative) Urine Bilirubin (Negative) Urine Urobilinogen (0.2) mg/dL Ur Leukocyte Esterase (Negative) U Hyaline Cast (Auto) (0-2) /LPF Urine Microscopic RBC (0-5) /HPF Urine Microscopic WBC (0-5) /HPF Ur Epithelial Cells (None Seen) /HPF Urine Bacteria (None Seen) /HPF Urine Culture Reflexed (NO) - Radiology Impressions Radiology Exams & Impressions: Radiology Procedures Category Date Time Status CHEST 1 VIEW (PORTABLE) Stat Exams 02/23/25 12:19 Completed HEAD WITHOUT CONTRAST [CT] Stat Exams 02/23/25 13:57 Completed Assessment/Plan (1) UTI (urinary tract infection) Current Visit: Yes Status: Acute Assessment & Plan: -UA positive for leukocytes with dark, strong-smelling urine and malaise. No flank pain or fever. -Continue IV ceftriaxone empirically pending -follow urine culture -Transition to oral antibiotic when sensitivities return and clinically improved -IVF -Monitor renal function and temperature curve Code(s): N39.0 - URINARY TRACT INFECTION, SITE NOT SPECIFIED (2) Dizziness Current Visit: Yes Status: Acute Assessment & Plan: -Likely secondary to dehydration and systemic infection; however, recent start of paroxetine (three weeks ago) may also be contributing. Metoprolol could exacerbate lightheadedness through blood pressure or heart rate effects. Hemodynamics stable; EKG and head CT unremarkable. -Continue gentle IV hydration and encourage oral intake as tolerated -Monitor orthostatic vitals daily; current orthostatic vitals are negative -Tele for rhythm/rate surveillance -Reassess after hydration; if persistent, consider vestibular or cardiac eval -PT eval -Med review -Consider holding or reducing paroxetine if symptoms persist and no other cause identified Code(s): R42 - DIZZINESS AND GIDDINESS (3) Transaminitis Current Visit: Yes Status: Acute Assessment & Plan: -Mild enzyme elevation trending down from prior; possible medication effect or chronic hepatic congestion. -Trend hepatic function during admission -Avoid hepatotoxic medications -Review medication list for potential contributors -Repeat imaging only if enzyme levels rise or new symptoms occur Code(s): R74.01 - ELEVATION OF LEVELS OF LIVER TRANSAMINASE LEVELS (4) Afib Current Visit: Yes Status: Acute Assessment & Plan: -EKG demonstrates sinus rhythm with normal intervals -Continue Eliquis and metoprolol -Maintain electrolyte balance -Continue telemetry monitoring Code(s): I48.91 - UNSPECIFIED ATRIAL FIBRILLATION (5) Anxiety Current Visit: Yes Status: Acute Assessment & Plan: -Continue home meds Code(s): F41.9 - ANXIETY DISORDER, UNSPECIFIED (6) HLD (hyperlipidemia) Current Visit: Yes Status: Acute Assessment & Plan: -continue statin Code(s): E78.5 - HYPERLIPIDEMIA, UNSPECIFIED (7) History of stroke Current Visit: Yes Status: Acute Assessment & Plan: -continue statin/Eliquis -Chronic infarcts in left insula/operculum and basal ganglia on head CT. -Dysphagia persists; currently tube-fed with limited oral intake. -Maintain aspiration precautions -Continue current tube feeding regimen -Request speech therapy evaluation per patients request to assess swallow safety and determine feasibility of diet advancement (recommends modified barium) -[employer]er consult for tube feedings Code(s): Z86.73 - PRSNL HX OF TIA (TIA), AND CEREB INFRC W/O RESID DEFICITS (8) Generalized weakness Current Visit: Yes Status: Acute Assessment & Plan: -Most likely secondary to infection -PT/OT eval -IVF -Continue ceftriaxone for UTI -Patient to consider rehab as she lives home alone VTE: Eliquis PPI: Protonix Dispo: 1-3 days Code Status: Full Code Plan of care time spent > 40 mins Code(s): R53.1 - WEAKNESS Telemedicine Encounter - Telemedicine Encounter Telemedicine Encounter: "The entirety of this encounter was performed via Telemedicine" This visit was performed using real-time audio and video connection between my location and thepatients locationwith the assistance of a surrogateat the patients location. Written or verbal consent was obtained from the patient/reba hawkinsan to perform this visit usingCipherCloud[employer]Gordon Gamestelemedicine technology. Any patient questions regarding the telemedicine interaction were answered. <JACQUELINE MORAES - Last Filed: 02/23/25 20:40> History of Present Illness - Chief Complaint History of Present Illness: is a 79 year old female. - Physical Exam Vital Signs: Vital Signs - 24 hr Temp Pulse Resp BP BP Pulse Ox 02/23/25 20:00 98.5 F 64 17 124/60 93 L 02/23/25 16:28 97.9 F 62 16 134/63 97 02/23/25 16:08 97.9 F 62 16 134/63 97 02/23/25 15:42 100 02/23/25 15:30 119/51 02/23/25 15:21 57 L 15 133/53 100 02/23/25 14:30 68 18 126/47 99 02/23/25 14:00 57 L 16 120/52 100 02/23/25 13:31 69 16 121/55 100 02/23/25 13:06 58 L 18 118/52 100 02/23/25 13:05 62 23 98 02/23/25 13:02 71 16 99 02/23/25 12:30 56 L 18 127/61 100 02/23/25 12:18 99 02/23/25 12:03 54 L 18 141/54 75 L 02/23/25 12:02 81 L 02/23/25 11:58 98.6 F 63 18 141/54 98 Results - Labs Lab/Micro Results: Lab Results-Last 24 Hours 02/23/25 02/23/25 02/23/25 Range/Units 11:05 12:30 12:30 WBC 8.4 (3.98-10.04) x10^3/uL RBC 3.92 L (3.93-5.22) x10^6/uL Hgb 12.0 (11.2-15.7) g/dL Hct 36.5 (34.1-44.9) % MCV 93.1 (79.4-94.8) fL MCH 30.6 (25.6-32.2) pg MCHC 32.9 (32.2-35.5) g/dL RDW 13.6 (11.7-14.4) % Plt Count 217 (182-369) x10^3/uL MPV 10.8 (9.4-12.3) fL Gran % 73.6 H (34.0-71.1) % Immature Gran % (Auto) 0.8 H (0.001-0.429) % Nucleat RBC Rel Count 0.0 (0.00-0.2) % Eos # (Auto) 0.06 (0.04-0.36) x10^3/uL Immature Gran # (Auto) 0.07 H (0.001-0.031) x10^3u/L Absolute Lymphs (auto) 1.07 L (1.18-3.74) x10^3/uL Absolute Monos (auto) 0.93 H (0.24-0.86) x10^3/uL Absolute Nucleated RBC 0.00 (0.00-0.012) x10^3u/L Lymphocytes % 12.8 L (19.3-51.7) % Monocytes % 11.1 (4.7-12.5) % Eosinophils % 0.7 (0.7-5.8) % Basophils % 1.0 (0.1-1.2) % Absolute Granulocytes 6.16 H (1.56-6.13) x10^3/uL Basophils # 0.08 (0.01-0.08) x10^3/uL Sodium 135 (135-145) mmol/L Potassium 4.6 (3.5-5.1) mmol/L Chloride 101 (98-107) mmol/L Carbon Dioxide 27 (22-30) mmol/L Anion Gap 11.3 (5-15) MEQ/L BUN 20 H (7-17) mg/dL Creatinine 0.56 (0.52-1.04) mg/dL Estimated GFR 93.9 ML/MIN Glucose 103 (74-106) mg/dL Lactic Acid (0.4-2.0) Calcium 9.2 (8.4-10.2) mg/dL Magnesium 2.2 (1.6-2.3) mg/dL Total Bilirubin 1.20 (0.2-1.3) mg/dL AST 66 H (14-36) U/L ALT 90 H (0-35) U/L Alkaline Phosphatase 205 H (38-126) U/L Troponin I (0.000-0.033) ng/mL NT-Pro-B Natriuret Pep (<300) pg/mL Serum Total Protein 7.9 (6.3-8.2) g/dL Albumin 4.1 (3.5-5.0) g/dL Urine Color Yellow (Yellow) Urine Appearance Cloudy A (Clear) Urine pH 7.5 (4.6-8.0) Ur Specific Hyden 1.020 (1.005-1.030) Urine Protein Negative (Negative) Urine Glucose (UA) Negative (Negative) mg/dL Urine Ketones Negative (Negative) Urine Blood Negative (Negative) Urine Nitrite Negative (Negative) Urine Bilirubin Negative (Negative) Urine Urobilinogen 0.2 (0.2) mg/dL Ur Leukocyte Esterase Moderate A (Negative) U Hyaline Cast (Auto) NONE SEEN (0-2) /LPF Urine Microscopic RBC 0-2 (0-5) /HPF Urine Microscopic WBC 6-10 A (0-5) /HPF Ur Epithelial Cells None Seen (None Seen) /HPF Urine Bacteria None Seen (None Seen) /HPF Urine Culture Reflexed YES (NO) 02/23/25 02/23/25 02/23/25 Range/Units 12:30 12:35 16:30 WBC (3.98-10.04) x10^3/uL RBC (3.93-5.22) x10^6/uL Hgb (11.2-15.7) g/dL Hct (34.1-44.9) % MCV (79.4-94.8) fL MCH (25.6-32.2) pg MCHC (32.2-35.5) g/dL RDW (11.7-14.4) % Plt Count (182-369) x10^3/uL MPV (9.4-12.3) fL Gran % (34.0-71.1) % Immature Gran % (Auto) (0.001-0.429) % Nucleat RBC Rel Count (0.00-0.2) % Eos # (Auto) (0.04-0.36) x10^3/uL Immature Gran # (Auto) (0.001-0.031) x10^3u/L Absolute Lymphs (auto) (1.18-3.74) x10^3/uL Absolute Monos (auto) (0.24-0.86) x10^3/uL Absolute Nucleated RBC (0.00-0.012) x10^3u/L Lymphocytes % (19.3-51.7) % Monocytes % (4.7-12.5) % Eosinophils % (0.7-5.8) % Basophils % (0.1-1.2) % Absolute Granulocytes (1.56-6.13) x10^3/uL Basophils # (0.01-0.08) x10^3/uL Sodium (135-145) mmol/L Potassium (3.5-5.1) mmol/L Chloride (98-107) mmol/L Carbon Dioxide (22-30) mmol/L Anion Gap (5-15) MEQ/L BUN (7-17) mg/dL Creatinine (0.52-1.04) mg/dL Estimated GFR ML/MIN Glucose (74-106) mg/dL Lactic Acid 1.3 (0.4-2.0) Calcium (8.4-10.2) mg/dL Magnesium (1.6-2.3) mg/dL Total Bilirubin (0.2-1.3) mg/dL AST (14-36) U/L ALT (0-35) U/L Alkaline Phosphatase (38-126) U/L Troponin I < 0.012 < 0.012 (0.000-0.033) ng/mL NT-Pro-B Natriuret Pep 198 (<300) pg/mL Serum Total Protein (6.3-8.2) g/dL Albumin (3.5-5.0) g/dL Urine Color (Yellow) Urine Appearance (Clear) Urine pH (4.6-8.0) Ur Specific Hyden (1.005-1.030) Urine Protein (Negative) Urine Glucose (UA) (Negative) mg/dL Urine Ketones (Negative) Urine Blood (Negative) Urine Nitrite (Negative) Urine Bilirubin (Negative) Urine Urobilinogen (0.2) mg/dL Ur Leukocyte Esterase (Negative) U Hyaline Cast (Auto) (0-2) /LPF Urine Microscopic RBC (0-5) /HPF Urine Microscopic WBC (0-5) /HPF Ur Epithelial Cells (None Seen) /HPF Urine Bacteria (None Seen) /HPF Urine Culture Reflexed (NO) - Radiology Impressions Radiology Exams & Impressions: Radiology Procedures Category Date Time Status CHEST 1 VIEW (PORTABLE) Stat Exams 02/23/25 12:19 Completed ECHO W/2D AND DOPPLER [US] Routine Exams 02/23/25 16:45 Ordered HEAD WITHOUT CONTRAST [CT] Stat Exams 02/23/25 13:57 Completed MODIFIED BARIUM SWALLOW (RAD) [MODIFIED BARIUM SWALLOW Exams 02/24/25 11:00 Ordered EXAM] Routine MODIFIED BARIUM SWALLOW EXAM Routine Exams 02/23/25 18:26 Ordered - Other Procedures and Tests Respiratory Therapy 02/23/25 16:35 EKG REPEAT IN AM Telemedicine Encounter - Telemedicine Encounter Telemedicine Encounter: "The entirety of this encounter was performed via Telemedicine" This visit was performed using real-time audio and video connection between my location and thepatients locationwith the assistance of a surrogateat the patients location. Written or verbal consent was obtained from the patient/guardian to perform this visit usingFormisimotelemedicine technology. Any patient questions regarding the telemedicine interaction were answered. LOLITA Encounter - LOLITA Encounter Attestation LOLITA Encounter Attestation: "[email or web address] Veloz andhavediscussed pertinent aspects of their care with Matthew Poon agree with the history, physical exam (any modifications based on my personal exam will be noted below), assessment, and plan as outlined in original note. Please see immediately below for my summary of findings and additional assessment and plan along with any meaningful corrections/explanations to the Subjective/Objective portions of the LOLITA note will be noted." My portion of the encounter took place via telemedicine. -patient with history of stroke and scleroderma with h/o dysphagia s/p PEG tube presenting with generalized weakness without any focal complaints. Probable UTI which we will treat. PT evaluation in the morning. May need home PT/OT.
[2025-02-23] MEDS ORDERED: TYLENOL 325 MG PO PRN (16:35)
[2025-02-23] MEDS ORDERED: Zofran 4 MG/2 ML VIAL IV PRN (16:35)
[2025-02-23] MEDS ORDERED: Ativan 2 MG/1 ML VIAL IV PRN (16:53)
[2025-02-23] MEDS ORDERED: NON-FORMULARY ITEM (Atorvastatin Calcium [Lipitor] 80 MG Tablet) PO SCH (22:00)
[2025-02-23] MEDS ORDERED: NON-FORMULARY ITEM (Apixaban [Eliquis] 5 MG Tablet) PO SCH (22:00)
[2025-02-23] MEDS: DESYREL 50 MG PO SCH (22:36)
[2025-02-23] MEDS: Lopressor 50 MG PO SCH (22:37)
[2025-02-23] MEDS: ELIQUIS 2.5 MG TABLET PO SCH (22:37)
[2025-02-23] MEDS: ZOCOR 20MG PO SCH (22:37)
[2025-02-23] MEDS: Pepcid 20 MG PO SCH (22:38)
[2025-02-24 04:50] LABS: BASOPHIL % 1.0 % (0.1-1.2); Basophil (Absolute #) 0.07 x10^3/uL (0.01-0.08); Eosinophil (Absolute #) 0.12 x10^3/uL (0.04-0.36); Hematocrit 31.7 % (34.1-44.9); Hemoglobin 10.7 g/dL (11.2-15.7); IMMATURE GRAN # 0.04 x10^3u/L (0.001-0.031); IMMATURE GRAN % 0.6 % (0.001-0.429); Lymphocyte (Absolute #) 1.51 x10^3/uL (1.18-3.74); Mean Corpuscular Hemoglobin 30.9 pg (25.6-32.2); Mean Corpuscular Hgb Concent. 33.8 g/dL (32.2-35.5); Monocyte (Absolute #) 0.92 x10^3/uL (0.24-0.86); NUCLEATED RBC # 0.00 x10^3u/L (0.00-0.012); NUCLEATED RBC % 0.0 % (0.00-0.2); Platelet Count 199 x10^3/uL (182-369); Red Blood Count 3.46 x10^6/uL (3.93-5.22); White Blood Count 7.0 x10^3/uL (3.98-10.04)
--- NOTE | 2025-02-24 05:07 | PCM.NOTE ---
Date and Time: 02/24/25 0506 Subjective Assessment: is a 79 year old female with a pmhx of stroke with residual dysphagia (feeding tube), scleroderma,atrial fibrillation on Eliquis, and hyperlipidemia diagnosed three weeks ago. She presented to the emergency department reporting that she hasnt felt good in a couple of weeks, describing generalized malaise, dizziness, and lightheadedness, particularly upon standing, and unsteady gait at times suggesting a possible orthostatic component. She did report that she fell last week. No head injury; fell to her left side and had some left elbow pain and bruising which has mostly resolved. She also noted that her urine had become dark and strong-smelling. Patient also reports anxiety and that she was recently started on Paxil about 3 weeks ago. She denied chest pain, shortness of breath, fever, chills, or syncope. The patient continues to experience dysphagia related to her prior stroke and remains on tube feedings, though she can tolerate limited soft foods. She expressed interest in increasing her oral intake and specifically requested a speech therapy evaluation to determine whether her diet can be safely advanced. On arrival, vital signs were stable. Orthostatic vitals negative. Labs remarkable for AST 66, ALT 90 (both lower than prior admissions), alkaline phosphatase 205, and BUN 20. Urinalysis was positive for moderate leukocytes, consistent with urinary tract infection. Chest X-ray revealed no acute cardiopulmonary findings. Head CT without contrast demonstrated stable, non- acute senescent changes with an old infarct in the left insula and operculum and a remote lacunar infarct in the left basal ganglia. No acute intracranial abnormality was identified. EKG showed sinus rhythm with normal axis, intervals, and QRS duration, without ischemic changes. The patient received ceftriaxone and IV fluids in the emergency department, reporting mild improvement in her lightheadedness 02/24/25: Met with patient bedside. Denies further dizziness but continues to endorse significant anxiety and episodic panic sensations. An OT evaluation this morning was limited by what appeared to be a panic attack. OT recommended continued inpatient rehabilitation; however, given her medication needs and functional baseline, I feel she may benefit more from a [facility] facility. Urine culture is pending. A barium swallow study is planned today to further evaluate dysphagia and guide nutrition recommendations. PT evaluation and case management will explore placement options pending patient agreement. - Review of Systems Constitutional: Weakness Eyes: No Symptoms Ears, Nose, & Throat: No Symptoms Respiratory: No Symptoms Cardiac: No Symptoms Abdominal/Gastrointestinal: No Symptoms Genitourinary Symptoms: No Symptoms Musculoskeletal: No Symptoms Skin: No Symptoms Neurological: No Symptoms Psychological: Anxiety Endocrine: No Symptoms Hematologic/Lymphatic: No Symptoms Immunological/Allergic: No Symptoms Objective Exam General Appearance: no apparent distress Neurologic Exam: alert, oriented x 3, cooperative Skin Exam: normal color Eye Exam: PERRL Ears, Nose, Throat Exam: normal ENT inspection Neck Exam: normal inspection Respiratory Exam: normal breath sounds, lungs clear Cardiovascular Exam: regular rate/rhythm, normal heart sounds Gastrointestinal/Abdomen Exam: soft, normal bowel sounds Extremity Exam: normal inspection Back Exam: normal inspection Pelvic Exam: deferred Rectal Exam: deferred Objective Data Vital Signs: Vital Signs - 24 hr Temp Pulse Resp BP BP Pulse Ox 02/24/25 04:00 97.7 F 54 L 16 124/58 92 L 02/24/25 00:00 98.5 F 55 L 16 119/57 95 02/23/25 20:00 98.5 F 64 17 124/60 93 L 02/23/25 16:28 97.9 F 62 16 134/63 97 02/23/25 16:08 97.9 F 62 16 134/63 97 02/23/25 15:42 100 02/23/25 15:30 119/51 02/23/25 15:21 57 L 15 133/53 100 02/23/25 14:30 68 18 126/47 99 02/23/25 14:00 57 L 16 120/52 100 02/23/25 13:31 69 16 121/55 100 02/23/25 13:06 58 L 18 118/52 100 02/23/25 13:05 62 23 98 02/23/25 13:02 71 16 99 02/23/25 12:30 56 L 18 127/61 100 02/23/25 12:18 99 02/23/25 12:03 54 L 18 141/54 75 L 02/23/25 12:02 81 L 02/23/25 11:58 98.6 F 63 18 141/54 98 Pain Assessment - Last Documented Pain Intensity 0 Intake and Output: Intake & Output 02/21/25 02/22/25 02/23/25 02/24/25 11:59 11:59 11:59 11:59 Intake Total 1120 Balance 1120 Weight 54.6 kg 57.6 kg Lab Results: Lab Results-Last 24 Hours 02/23/25 02/23/25 02/23/25 Range/Units 11:05 12:30 12:30 WBC 8.4 (3.98-10.04) x10^3/uL RBC 3.92 L (3.93-5.22) x10^6/uL Hgb 12.0 (11.2-15.7) g/dL Hct 36.5 (34.1-44.9) % MCV 93.1 (79.4-94.8) fL MCH 30.6 (25.6-32.2) pg MCHC 32.9 (32.2-35.5) g/dL RDW 13.6 (11.7-14.4) % Plt Count 217 (182-369) x10^3/uL MPV 10.8 (9.4-12.3) fL Gran % 73.6 H (34.0-71.1) % Immature Gran % (Auto) 0.8 H (0.001-0.429) % Nucleat RBC Rel Count 0.0 (0.00-0.2) % Eos # (Auto) 0.06 (0.04-0.36) x10^3/uL Immature Gran # (Auto) 0.07 H (0.001-0.031) x10^3u/L Absolute Lymphs (auto) 1.07 L (1.18-3.74) x10^3/uL Absolute Monos (auto) 0.93 H (0.24-0.86) x10^3/uL Absolute Nucleated RBC 0.00 (0.00-0.012) x10^3u/L Lymphocytes % 12.8 L (19.3-51.7) % Monocytes % 11.1 (4.7-12.5) % Eosinophils % 0.7 (0.7-5.8) % Basophils % 1.0 (0.1-1.2) % Absolute Granulocytes 6.16 H (1.56-6.13) x10^3/uL Basophils # 0.08 (0.01-0.08) x10^3/uL Sodium 135 (135-145) mmol/L Potassium 4.6 (3.5-5.1) mmol/L Chloride 101 (98-107) mmol/L Carbon Dioxide 27 (22-30) mmol/L Anion Gap 11.3 (5-15) MEQ/L BUN 20 H (7-17) mg/dL Creatinine 0.56 (0.52-1.04) mg/dL Estimated GFR 93.9 ML/MIN Glucose 103 (74-106) mg/dL Lactic Acid (0.4-2.0) Calcium 9.2 (8.4-10.2) mg/dL Magnesium 2.2 (1.6-2.3) mg/dL Total Bilirubin 1.20 (0.2-1.3) mg/dL AST 66 H (14-36) U/L ALT 90 H (0-35) U/L Alkaline Phosphatase 205 H (38-126) U/L Troponin I (0.000-0.033) ng/mL NT-Pro-B Natriuret Pep (<300) pg/mL Serum Total Protein 7.9 (6.3-8.2) g/dL Albumin 4.1 (3.5-5.0) g/dL TSH 3rd Generation (0.470-4.680) mIU/L Urine Color Yellow (Yellow) Urine Appearance Cloudy A (Clear) Urine pH 7.5 (4.6-8.0) Ur Specific [place] 1.020 (1.005-1.030) Urine Protein Negative (Negative) Urine Glucose (UA) Negative (Negative) mg/dL Urine Ketones Negative (Negative) Urine Blood Negative (Negative) Urine Nitrite Negative (Negative) Urine Bilirubin Negative (Negative) Urine Urobilinogen 0.2 (0.2) mg/dL Ur Leukocyte Esterase Moderate A (Negative) U Hyaline Cast (Auto) NONE SEEN (0-2) /LPF Urine Microscopic RBC 0-2 (0-5) /HPF Urine Microscopic WBC 6-10 A (0-5) /HPF Ur Epithelial Cells None Seen (None Seen) /HPF Urine Bacteria None Seen (None Seen) /HPF Urine Culture Reflexed YES (NO) 02/23/25 02/23/25 02/23/25 Range/Units 12:30 12:35 16:30 WBC (3.98-10.04) x10^3/uL RBC (3.93-5.22) x10^6/uL Hgb (11.2-15.7) g/dL Hct (34.1-44.9) % MCV (79.4-94.8) fL MCH (25.6-32.2) pg MCHC (32.2-35.5) g/dL RDW (11.7-14.4) % Plt Count (182-369) x10^3/uL MPV (9.4-12.3) fL Gran % (34.0-71.1) % Immature Gran % (Auto) (0.001-0.429) % Nucleat RBC Rel Count (0.00-0.2) % Eos # (Auto) (0.04-0.36) x10^3/uL Immature Gran # (Auto) (0.001-0.031) x10^3u/L Absolute Lymphs (auto) (1.18-3.74) x10^3/uL Absolute Monos (auto) (0.24-0.86) x10^3/uL Absolute Nucleated RBC (0.00-0.012) x10^3u/L Lymphocytes % (19.3-51.7) % Monocytes % (4.7-12.5) % Eosinophils % (0.7-5.8) % Basophils % (0.1-1.2) % Absolute Granulocytes (1.56-6.13) x10^3/uL Basophils # (0.01-0.08) x10^3/uL Sodium (135-145) mmol/L Potassium (3.5-5.1) mmol/L Chloride (98-107) mmol/L Carbon Dioxide (22-30) mmol/L Anion Gap (5-15) MEQ/L BUN (7-17) mg/dL Creatinine (0.52-1.04) mg/dL Estimated GFR ML/MIN Glucose (74-106) mg/dL Lactic Acid 1.3 (0.4-2.0) Calcium (8.4-10.2) mg/dL Magnesium (1.6-2.3) mg/dL Total Bilirubin (0.2-1.3) mg/dL AST (14-36) U/L ALT (0-35) U/L Alkaline Phosphatase (38-126) U/L Troponin I < 0.012 < 0.012 (0.000-0.033) ng/mL NT-Pro-B Natriuret Pep 198 (<300) pg/mL Serum Total Protein (6.3-8.2) g/dL Albumin (3.5-5.0) g/dL TSH 3rd Generation (0.470-4.680) mIU/L Urine Color (Yellow) Urine Appearance (Clear) Urine pH (4.6-8.0) Ur Specific [place] (1.005-1.030) Urine Protein (Negative) Urine Glucose (UA) (Negative) mg/dL Urine Ketones (Negative) Urine Blood (Negative) Urine Nitrite (Negative) Urine Bilirubin (Negative) Urine Urobilinogen (0.2) mg/dL Ur Leukocyte Esterase (Negative) U Hyaline Cast (Auto) (0-2) /LPF Urine Microscopic RBC (0-5) /HPF Urine Microscopic WBC (0-5) /HPF Ur Epithelial Cells (None Seen) /HPF Urine Bacteria (None Seen) /HPF Urine Culture Reflexed (NO) 02/23/25 02/23/25 Range/Units 20:35 20:35 WBC (3.98-10.04) x10^3/uL RBC (3.93-5.22) x10^6/uL Hgb (11.2-15.7) g/dL Hct (34.1-44.9) % MCV (79.4-94.8) fL MCH (25.6-32.2) pg MCHC (32.2-35.5) g/dL RDW (11.7-14.4) % Plt Count (182-369) x10^3/uL MPV (9.4-12.3) fL Gran % (34.0-71.1) % Immature Gran % (Auto) (0.001-0.429) % Nucleat RBC Rel Count (0.00-0.2) % Eos # (Auto) (0.04-0.36) x10^3/uL Immature Gran # (Auto) (0.001-0.031) x10^3u/L Absolute Lymphs (auto) (1.18-3.74) x10^3/uL Absolute Monos (auto) (0.24-0.86) x10^3/uL Absolute Nucleated RBC (0.00-0.012) x10^3u/L Lymphocytes % (19.3-51.7) % Monocytes % (4.7-12.5) % Eosinophils % (0.7-5.8) % Basophils % (0.1-1.2) % Absolute Granulocytes (1.56-6.13) x10^3/uL Basophils # (0.01-0.08) x10^3/uL Sodium (135-145) mmol/L Potassium (3.5-5.1) mmol/L Chloride (98-107) mmol/L Carbon Dioxide (22-30) mmol/L Anion Gap (5-15) MEQ/L BUN (7-17) mg/dL Creatinine (0.52-1.04) mg/dL Estimated GFR ML/MIN Glucose (74-106) mg/dL Lactic Acid (0.4-2.0) Calcium (8.4-10.2) mg/dL Magnesium 2.1 (1.6-2.3) mg/dL Total Bilirubin (0.2-1.3) mg/dL AST (14-36) U/L ALT (0-35) U/L Alkaline Phosphatase (38-126) U/L Troponin I < 0.012 (0.000-0.033) ng/mL NT-Pro-B Natriuret Pep (<300) pg/mL Serum Total Protein (6.3-8.2) g/dL Albumin (3.5-5.0) g/dL TSH 3rd Generation 0.783 (0.470-4.680) mIU/L Urine Color (Yellow) Urine Appearance (Clear) Urine pH (4.6-8.0) Ur Specific [place] (1.005-1.030) Urine Protein (Negative) Urine Glucose (UA) (Negative) mg/dL Urine Ketones (Negative) Urine Blood (Negative) Urine Nitrite (Negative) Urine Bilirubin (Negative) Urine Urobilinogen (0.2) mg/dL Ur Leukocyte Esterase (Negative) U Hyaline Cast (Auto) (0-2) /LPF Urine Microscopic RBC (0-5) /HPF Urine Microscopic WBC (0-5) /HPF Ur Epithelial Cells (None Seen) /HPF Urine Bacteria (None Seen) /HPF Urine Culture Reflexed (NO) Radiology Exams: Radiology Procedures Category Date Time Status CHEST 1 VIEW (PORTABLE) Stat Exams 02/23/25 12:19 Completed ECHO W/2D AND DOPPLER [US] Routine Exams 02/23/25 16:45 Ordered HEAD WITHOUT CONTRAST [CT] Stat Exams 02/23/25 13:57 Completed MODIFIED BARIUM SWALLOW (RAD) [MODIFIED BARIUM SWALLOW Exams 02/24/25 11:00 Ordered EXAM] Routine MODIFIED BARIUM SWALLOW EXAM Routine Exams 02/23/25 18:26 Ordered Medications: Medications Generic Name Dose Route Start Last Admin Trade Name Freq PRN Reason Stop Dose Admin Acetaminophen 650 mg 02/23/25 16:35 Acetaminophen 325 Mg Tablet PO 03/25/25 16:34 Q4H PRN PRN PAIN, FEVER, HEADACHE Apixaban 5 mg 02/23/25 22:00 02/23/25 22:37 Apixaban 2.5 Mg Tablet PO 03/25/25 21:59 5 mg BID ESTRADA Administration Famotidine 20 mg 02/23/25 22:00 02/23/25 22:38 Famotidine 20 Mg Tablet PO 03/25/25 21:59 20 mg BID ESTRADA Administration Sodium Chloride 1,000 mls @ 100 mls/hr 02/23/25 16:45 02/23/25 22:32 Sodium Chloride 0.9% 1000 Ml IV 03/25/25 16:44 100 mls/hr .Q10H ESTRADA Administration Ceftriaxone Sodium 1 gm in 100 mls @ 200 mls/hr 02/24/25 10:00 Rocephin 1 Gm / 100 Ml Nacl IV 03/26/25 09:59 Q24H10 ESTRADA Lorazepam 0.5 mg 02/23/25 16:53 Lorazepam 2 Mg/1 Ml 2 Mg Vial IV 03/25/25 16:52 Q6H PRN PRN ANXIETY Metoprolol Tartrate 50 mg 02/23/25 22:00 02/23/25 22:37 Metoprolol Tartrate 50 Mg Tablet PO 03/25/25 21:59 50 mg BID ESTRADA Administration Ondansetron HCl 4 mg 02/23/25 16:35 Ondansetron Hcl 4 Mg/2 Ml Vial IV 03/25/25 16:34 Q6H PRN PRN NAUSEA/VOMITING Pantoprazole Sodium 40 mg 02/24/25 10:00 Protonix (Pantoprazole) 40 Mg Tablet PO 03/26/25 09:59 DAILY ESTRADA Paroxetine HCl 10 mg 02/24/25 10:00 Paroxetine Hcl 20 Mg Tablet PO 03/26/25 09:59 DAILY ESTRADA Simvastatin 40 mg 02/23/25 22:00 02/23/25 22:37 Simvastatin 20 Mg Tablet PO 03/25/25 21:59 40 mg HS ESTRADA Administration Trazodone HCl 50 mg 02/23/25 22:00 02/23/25 22:36 Trazodone Hcl 50 Mg Tablet PO 03/25/25 21:59 50 mg HS ESTRADA Administration Discontinued Medications Generic Name Dose Route Start Last Admin Trade Name Freq PRN Reason Stop Dose Admin Sodium Chloride 1,000 mls @ 100 mls/hr 02/23/25 12:30 02/23/25 12:34 Sodium Chloride 0.9% 1000 Ml IV 03/25/25 12:29 100 mls/hr .Q10H ESTRADA Administration Ceftriaxone Sodium 1 gm in 100 mls @ 200 mls/hr 02/23/25 13:59 02/23/25 14:56 Rocephin 1 Gm / 100 Ml Nacl IV 02/23/25 14:28 Infused STAT ONE Infusion Ceftriaxone Sodium Confirm 02/23/25 14:19 Rocephin 1 Gm / 100 Ml Nacl Administered 02/23/25 14:20 Dose 1 gm in 100 mls @ ud IV .STK-MED ONE Sodium Chloride Confirm 02/23/25 12:33 Sodium Chloride 0.9% 1000 Ml Administered 02/23/25 12:34 Dose 1,000 mls @ ud .ROUTE .STK-MED ONE Assessment/Plan (1) UTI (urinary tract infection) Current Visit: Yes Status: Acute Assessment & Plan: -UA positive for leukocytes with dark, strong-smelling urine and malaise. No flank pain or fever. -Continue IV ceftriaxone empirically pending -follow urine culture -Transition to oral antibiotic when sensitivities return and clinically improved -IVF -Monitor renal function and temperature curve 02/24: -Ucult pending continue ceftriaxone for now Code(s): N39.0 - URINARY TRACT INFECTION, SITE NOT SPECIFIED (2) Dizziness Current Visit: Yes Status: Acute Assessment & Plan: -Likely secondary to dehydration and systemic infection; however, recent start of paroxetine (three weeks ago) may also be contributing. Metoprolol could exacerbate lightheadedness through blood pressure or heart rate effects. Hemodynamics stable; EKG and head CT unremarkable. -Continue gentle IV hydration and encourage oral intake as tolerated -Monitor orthostatic vitals daily; current orthostatic vitals are negative -Tele for rhythm/rate surveillance -Reassess after hydration; if persistent, consider vestibular or cardiac eval -PT eval -Med review -Consider holding or reducing paroxetine if symptoms persist and no other cause identified 02/24 -Orthostatics negative; likely multifactorial (infection, dehydration, anxiety, Paxil initiation). -Continue gentle IV fluids for another day and reassess. -Avoid rapid position changes; fall precautions maintained. -PT evaluation today to assess gait stability and SNF vs IPR needs. Code(s): R42 - DIZZINESS AND GIDDINESS (3) Transaminitis Current Visit: Yes Status: Acute Assessment & Plan: -Mild enzyme elevation trending down from prior; possible medication effect or chronic hepatic congestion. -Trend hepatic function during admission -Avoid hepatotoxic medications -Review medication list for potential contributors -Repeat imaging only if enzyme levels rise or new symptoms occur 02/24: -LFTs reviewed and improving -trend Code(s): R74.01 - ELEVATION OF LEVELS OF LIVER TRANSAMINASE LEVELS (4) Afib Current Visit: Yes Status: Acute Assessment & Plan: -EKG demonstrates sinus rhythm with normal intervals -Continue Eliquis and metoprolol -Maintain electrolyte balance -Continue telemetry monitoring Code(s): I48.91 - UNSPECIFIED ATRIAL FIBRILLATION (5) Anxiety Current Visit: Yes Status: Acute Assessment & Plan: -Continue home meds Code(s): F41.9 - ANXIETY DISORDER, UNSPECIFIED (6) HLD (hyperlipidemia) Current Visit: Yes Status: Acute Assessment & Plan: -continue statin Code(s): E78.5 - HYPERLIPIDEMIA, UNSPECIFIED (7) History of stroke Current Visit: Yes Status: Acute Assessment & Plan: -continue statin/Eliquis -Chronic infarcts in left insula/operculum and basal ganglia on head CT. -Dysphagia persists; currently tube-fed with limited oral intake. -Maintain aspiration precautions -Continue current tube feeding regimen -Request speech therapy evaluation per patients request to assess swallow safety and determine feasibility of diet advancement (recommends modified barium) -M1 [employer] Crewman consult for tube feedings Code(s): Z86.73 - PRSNL HX OF TIA (TIA), AND CEREB INFRC W/O RESID DEFICITS Dysphagia -Proceed with barium swallow today for objective evaluation. -Maintain tube feeding regimen until AUTOMOTIVE FINANCE MANAGER provides updated recommendations. -AUTOMOTIVE FINANCE MANAGER evaluation requested to assess safety of advancing diet per patient interest. -Continue aspiration precautions and supervised PO trials only as permitted by AUTOMOTIVE FINANCE MANAGER. Scleroderma Continue current regimen; monitor for reflux or GI motility symptoms. No acute flare signs today. (8) Generalized weakness Current Visit: Yes Status: Acute Assessment & Plan: -Most likely secondary to infection -PT/OT eval -IVF -Continue ceftriaxone for UTI -Patient to consider rehab as she lives home alone VTE: Eliquis PPI: Protonix Dispo: 1-3 days Code Status: Full Code Plan of care time spent > 40 mins Code(s): N39.0 - URINARY TRACT INFECTION, SITE NOT SPECIFIED (2) Dizziness Current Visit: Yes Status: Acute Code(s): R42 - DIZZINESS AND GIDDINESS (3) Transaminitis Current Visit: Yes Status: Acute Code(s): R74.01 - ELEVATION OF LEVELS OF LIVER TRANSAMINASE LEVELS (4) Afib Current Visit: Yes Status: Acute Code(s): I48.91 - UNSPECIFIED ATRIAL FIBRILLATION (5) Anxiety Current Visit: Yes Status: Acute Code(s): F41.9 - ANXIETY DISORDER, UNSPECIFIED (6) HLD (hyperlipidemia) Current Visit: Yes Status: Acute Code(s): E78.5 - HYPERLIPIDEMIA, UNSPECIFIED (7) History of stroke Current Visit: Yes Status: Acute Code(s): Z86.73 - PRSNL HX OF TIA (TIA), AND CEREB INFRC W/O RESID DEFICITS (8) Generalized weakness Current Visit: Yes Status: Acute Code(s): R53.1 - WEAKNESS
[2025-02-24 05:14] LABS: Calcium 8.8 mg/dL (8.4-10.2); Carbon Dioxide 26.0 mmol/L (22-30); Creatinine 1 0.59 mg/dL (0.52-1.04); EST GLOMERULAR FILTRATION RATE 92.8 ML/MIN; Glucose 88.0 mg/dL (74-106); Potassium 4.0 mmol/L (3.5-5.1); SGOT/AST 53.0 U/L (14-36); SGPT/ALT 78.0 U/L (0-35); Total Protein 7.0 g/dL (6.3-8.2)
[2025-02-24] MEDS: ROCEPHIN 1 GM / 100 ML NaCl 1 GM/100 ML IVPB IV SCH (09:01)
[2025-02-24] MEDS: Paxil 20 MG PO SCH (09:07)
[2025-02-24] MEDS: Protonix 40MG Tablet PO SCH (09:07)
[2025-02-24] MEDS ORDERED: NON-FORMULARY ITEM (Paroxetine Hcl [Paxil] 10 MG Tablet) PO SCH (10:00)
--- NOTE | 2025-02-24 12:02 | XRAY ---
Indication: Dysphagia. Modified barium swallow study performed by department of speech therapy with fluoroscopic assistance provided. Patient ingested multiple consistencies of liquids and solids. Full report and recommendations will be reported separately. 1 minute 9 seconds fluoroscopy used.
[2025-02-24] MEDS: Ativan 2 MG/1 ML VIAL IV PRN (13:33)
[2025-02-25 05:08] LABS: BASOPHIL % 0.9 % (0.1-1.2); Basophil (Absolute #) 0.06 x10^3/uL (0.01-0.08); Eosinophil (Absolute #) 0.11 x10^3/uL (0.04-0.36); Hematocrit 30.9 % (34.1-44.9); Hemoglobin 10.3 g/dL (11.2-15.7); IMMATURE GRAN # 0.03 x10^3u/L (0.001-0.031); IMMATURE GRAN % 0.4 % (0.001-0.429); Lymphocyte (Absolute #) 1.37 x10^3/uL (1.18-3.74); Mean Corpuscular Hemoglobin 30.3 pg (25.6-32.2); Mean Corpuscular Hgb Concent. 33.3 g/dL (32.2-35.5); Monocyte (Absolute #) 0.80 x10^3/uL (0.24-0.86); NUCLEATED RBC # 0.00 x10^3u/L (0.00-0.012); NUCLEATED RBC % 0.0 % (0.00-0.2); Platelet Count 205 x10^3/uL (182-369); Red Blood Count 3.40 x10^6/uL (3.93-5.22); White Blood Count 6.9 x10^3/uL (3.98-10.04)
[2025-02-25 06:38] LABS: Calcium 8.7 mg/dL (8.4-10.2); Carbon Dioxide 25.0 mmol/L (22-30); Creatinine 1 0.68 mg/dL (0.52-1.04); EST GLOMERULAR FILTRATION RATE 89.6 ML/MIN; Glucose 91.0 mg/dL (74-106); Potassium 3.9 mmol/L (3.5-5.1); SGOT/AST 57.0 U/L (14-36); SGPT/ALT 72.0 U/L (0-35); Total Protein 6.9 g/dL (6.3-8.2)
[2025-02-25 07:36] VITALS: RESP 16; TEMP 98.1
--- NOTE | 2025-02-25 09:43 | PCM.DS ---
Discharge Summary Date of Admission: 02/23/25 15:50 Date of Discharge: 02/25/25 Admitting Physician: JACQUELINE MORAES MD Consults: Consults on Case 02/23/25 16:35 Nutritional Consult ROUTINE Primary Care Provider: DELPHINE PERRY DO Allergies Allergies No Known Drug Allergies Allergy (Verified 06/21/24 11:12) Hospital Summary - Hospital Course Hospital Course: Ms. Rebolledo is a 79 year old female with pmhx of ischemic stroke complicated by chronic dysphagia requiring a PEG tube, scleroderma, atrial fibrillation on Eliquis, and recently diagnosed hyperlipidemia presented with two weeks of progressive malaise, generalized weakness, dizziness, and intermittent unsteadiness. She described episodic lightheadedness upon standing, dark and strong-smelling urine, and increased anxiety after a recent initiation of paroxetine. She also reported a ground-level fall the prior week without head trauma, though she developed mild left elbow bruising that has since resolved. On arrival, vital signs were stable and orthostatic vitals were negative. Her physical examination suggested dehydration and fatigue but no focal deficits beyond her known post-stroke dysphagia. Labs showed AST 66, ALT 90, alkaline phosphatase 205, with improvement compared to prior admissions; BUN 20, and WBC within normal limits. The urinalysis revealed moderate leukocytes, prompting empiric ceftriaxone and IV hydration. Chemistry on 02/25 remained unremarkable, and WBC continued to stay normal. Imaging included a chest X-ray without acute pulmonary findings, and a head CT showing chronic left insular/opercular infarct and a remote left basal ganglia lacune with no acute changes. EKG demonstrated sinus rhythm with normal intervals and no ischemic abnormalities. Symptomatically, her dizziness improved with gentle hydration. Anxiety remained a significant component, occasionally impairing therapy participation (including a panic episode during OT evaluation). She continued to experience dysphagia and requested evaluation for potential advancement of her diet. [facility]NER evaluated her and recommended strict NPO status, continuation of PEG feedings, and an increase to 5 feedings per day. She tolerated her tube feeds without issue. Her urine culture finalized as MRSA, sensitive to TMP-SMX. She remained afebrile, hemodynamically stable, without flank pain or signs of pyelonephritis. Given PEG access, she is safe for enteral administration of medications. She will complete a 7-day course of TMP-SMX 160/800 mg via PEG every 12 hours. Although both OT and PT recommended post-acute rehabilitation, the patient declined placement at a prison facility. After further discussion, she elected discharge home with home health, outpatient PT, and close follow-up. By discharge on 02/25, her dizziness had resolved, anxiety was manageable with home medications, and she had stable vitals, normal labs, and improving energy. Patient advised OP follow up for UTI resolution Discharge Note New Diagnosis: UTI New Medications: Bactrim Follow Up: PCP I spent 35 minutes [id number] with the patient on the day of discharge performing discharge exam, discussing hospital stay and discharge instructions with patient and caregivers, preparation of discharge records, prescriptions & referral forms and addressing any questions/concerns the patient had as documented above. - Vitals & Intake/Output Vital Signs: Vital Signs Temperature 98.1 F 02/25/25 07:35 Pulse Rate 68 02/25/25 07:35 Respiratory Rate 16 02/25/25 07:35 Blood Pressure 131/60 02/25/25 07:35 O2 Sat by Pulse Oximetry 93 L 02/25/25 07:35 Intake & Output: Intake & Output 02/22/25 02/23/25 02/24/25 02/25/25 11:59 11:59 11:59 11:59 Intake Total 1450 2049 Balance 1450 2049 Weight 54.6 kg 58.1 kg 58.1 kg - Lab Result Diagrams: 02/25/25 04:29 02/25/25 04:29 Lab Results-Last 24 Hrs: Lab Results-Last 24 Hours 02/25/25 02/25/25 Range/Units 04:29 04:29 WBC 6.9 (3.98-10.04) x10^3/uL RBC 3.40 L (3.93-5.22) x10^6/uL Hgb 10.3 L (11.2-15.7) g/dL Hct 30.9 L (34.1-44.9) % MCV 90.9 (79.4-94.8) fL MCH 30.3 (25.6-32.2) pg MCHC 33.3 (32.2-35.5) g/dL RDW 13.8 (11.7-14.4) % Plt Count 205 (182-369) x10^3/uL MPV 11.5 (9.4-12.3) fL Gran % 65.4 (34.0-71.1) % Immature Gran % (Auto) 0.4 (0.001-0.429) % Nucleat RBC Rel Count 0.0 (0.00-0.2) % Eos # (Auto) 0.11 (0.04-0.36) x10^3/uL Immature Gran # (Auto) 0.03 (0.001-0.031) x10^3u/L Absolute Lymphs (auto) 1.37 (1.18-3.74) x10^3/uL Absolute Monos (auto) 0.80 (0.24-0.86) x10^3/uL Absolute Nucleated RBC 0.00 (0.00-0.012) x10^3u/L Lymphocytes % 20.0 (19.3-51.7) % Monocytes % 11.7 (4.7-12.5) % Eosinophils % 1.6 (0.7-5.8) % Basophils % 0.9 (0.1-1.2) % Absolute Granulocytes 4.49 (1.56-6.13) x10^3/uL Basophils # 0.06 (0.01-0.08) x10^3/uL Sodium 134 L (135-145) mmol/L Potassium 3.9 (3.5-5.1) mmol/L Chloride 105 (98-107) mmol/L Carbon Dioxide 25 (22-30) mmol/L Anion Gap 7.8 (5-15) MEQ/L BUN 13 (7-17) mg/dL Creatinine 0.68 (0.52-1.04) mg/dL Estimated GFR 89.6 ML/MIN Glucose 91 (74-106) mg/dL Calcium 8.7 (8.4-10.2) mg/dL Total Bilirubin 0.90 (0.2-1.3) mg/dL AST 57 H (14-36) U/L ALT 72 H (0-35) U/L Alkaline Phosphatase 178 H (38-126) U/L Serum Total Protein 6.9 (6.3-8.2) g/dL Albumin 3.3 L (3.5-5.0) g/dL Micro Results-Entire Visit: Microbiology 02/23/25 11:05 Urine Culture - Final Clean Catch Midstream Methicillin Resist Staph Aur - Radiology Exams Ordered Rad Exams-Entire Visit: Radiology Procedures Category Date Time Status CHEST 1 VIEW (PORTABLE) Stat Exams 02/23/25 12:19 Completed HEAD WITHOUT CONTRAST [CT] Stat Exams 02/23/25 13:57 Completed MODIFIED BARIUM SWALLOW (RAD) [MODIFIED BARIUM SWALLOW Exams 02/24/25 11:00 Completed EXAM] Routine - Procedures and Test Procedures and Tests throughout Hospitalization: Therapy Orders & Screens 02/23/25 16:35 PT Eval & Treat ( Order) ONCE Reason for Eval:: unsteady gait/weakness Diagnosis: weakness/UTI EKG REPEAT IN AM Comment: Diagnosis: weakness/UTI OT Eval and Treat (MD Order) ONCE Comment: Physician Instructions: Reason For Exam: Diagnosis: weakness/UTI 02/23/25 16:36 ST Eval & Treat ( Order) ROUTINE Comment: x Physician Instructions: modified barium ordered Reason For Exam: dysphagia Evaluate: dysphagia from prior stroke Treat: Yes Reason for Eval: Pt requesting ST eval to increase oral intake - currently has feeding tube with limited diet Diagnosis: weakness/UTI 02/24/25 10:00 OT Screen per Nursing Assess ONCE Comment: Protocol Order Physician Instructions: Greater than 3 points order OT Admission Screening Reason For Exam: Triggered on Admission Diagnosis: weakness/UTI Open Wound/Cellutlitis/Pressure Ulcers: No Acute Fx/ORIF/Change in wt bearing status: No Severe MUSCULOSKELETAL pain: No ADL Dysfunction: Yes Acute CVA w/Hemiparesis/Hemiplegia: No Decreased Functional Mobility/Strength: Yes Sprain/Strain: No Acute Post-op Mobility Dysfunction: No Total Points: 4 PT Screen per Nursing Assess ONCE Comment: Protocol Order Physician Instructions: Greater than 3 points order PT Admission Screenin Reason For Exam: Triggered on Admission Diagnosis: weakness/UTI Open Wound/Cellutlitis/Pressure Ulcers: No Acute Fx/ORIF/Change in wt bearing status: No Severe MUSCULOSKELETAL pain: No ADL Dysfunction: Yes Acute CVA w/Hemiparesis/Hemiplegia: No Decreased Functional Mobility/Strength: Yes Sprain/Strain: No Acute Post-op Mobility Dysfunction: No Total Points: 4 ST Screen per Nursing Assess ONCE Comment: Protocol Order Physician Instructions: Greater than [address] Admission Screening Reason For Exam: Triggered on Admission Diagnosis: weakness/UTI CVA/Dysphagia/Aphasia: No Cognitive Deficits: No Dehydration/Nutrition Deficit: Yes Reflux: No Oral-Motor Difficulties: Yes: pt reports diff swallowin Pneumonia: No Usp Resident: No Total Points: 8 02/24/25 11:00 Modified Barium Swallow Eval .as ordered Comment: Physician Instructions: Reason For Exam: DYSPHAGIA Discharge Exam General Appearance: no apparent distress Neurologic Exam: alert, oriented x 3, cooperative Eye Exam: PERRL Ears, Nose, Throat Exam: normal ENT inspection Neck Exam: normal inspection Respiratory Exam: normal breath sounds, lungs clear Cardiovascular Exam: regular rate/rhythm, normal heart sounds Gastrointestinal/Abdomen Exam: soft, normal bowel sounds Pelvic Exam: deferred Rectal Exam: deferred Back Exam: normal inspection Extremity Exam: normal inspection Skin Exam: normal color Final Diagnosis/Problem List - Final Discharge Diagnosis/Problem (1) UTI (urinary tract infection) Current Visit: Yes Status: Acute Assessment & Plan: UA positive for leukocytes with dark, malodorous urine. Urine culture grew MRSA, sensitive to TMP-SMX. No systemic signs of complicated infection. Labs on 02/25: WBC normal; chemistry unremarkable. Completed ceftriaxone during hospitalization. TMP-SMX 160/800 mg (DS) via PEG every 12 hrs 7 days. Ensure adequate hydration via tube feeds as tolerated. Monitor for fever, flank pain, worsening confusion; return if present. Follow-up urine check with PCP in 1 week if symptoms recur or new symptoms develop. Code(s): N39.0 - URINARY TRACT INFECTION, SITE NOT SPECIFIED (2) Dizziness Current Visit: Yes Status: Acute Assessment & Plan: Likely multifactorial: dehydration, infection, anxiety, and possible contribution from recent paroxetine start. Orthostatics remained negative throughout. Dizziness resolved by discharge with hydration and clinical improvement. Head CT and EKG without acute findings. Code(s): R42 - DIZZINESS AND GIDDINESS (3) Transaminitis Current Visit: Yes Status: Acute Assessment & Plan: AST/ALT mildly elevated but lower than previous admissions; trend downward during stay. No RUQ pain, jaundice, or concerning imaging findings. Code(s): R74.01 - ELEVATION OF LEVELS OF LIVER TRANSAMINASE LEVELS (4) Afib Current Visit: Yes Status: Acute Assessment & Plan: EKG in sinus rhythm throughout admission. No RVR episodes. Electrolytes stable. Code(s): I48.91 - UNSPECIFIED ATRIAL FIBRILLATION (5) Anxiety Current Visit: Yes Status: Acute Assessment & Plan: Remained persistent during hospitalization, including a panic episode during OT. Currently on paroxetine, started 3 weeks ago Continue home paroxetine, trazodone, lorazepam as previously prescribed. PCP to reassess efficacy of Paxil at follow-up. Behavioral health referral recommended if symptoms persist. Code(s): F41.9 - ANXIETY DISORDER, UNSPECIFIED (6) HLD (hyperlipidemia) Current Visit: Yes Status: Acute Assessment & Plan: Continue statin Code(s): E78.5 - HYPERLIPIDEMIA, UNSPECIFIED (7) History of stroke Current Visit: Yes Status: Acute Assessment & Plan: CT shows chronic infarcts without new changes. Persistent dysphagia 2/2 to scleroderma requiring PEG tube feedings. [facility]NER recommended strict NPO and increase PEG feedings to 5 times daily Maintain NPO except for CALENDER [employer]NER-approved trials. Continue PEG feeds as directed (5/day). Home health RN to assist with PEG care and monitoring. Outpatient [facility] follow-up arranged to reassess swallowing safety. Code(s): Z86.73 - PRSNL HX OF TIA (TIA), AND CEREB INFRC W/O RESID DEFICITS (8) Generalized weakness Current Visit: Yes Status: Acute Assessment & Plan: Secondary to infection and dehydration. Improved with treatment. Continue recovery at home with PT involvement. Reinforce fall precautions; use assistive devices as needed. Home health to support mobility and safety. Code(s): R53.1 - WEAKNESS (9) Scleroderma Current Visit: Yes Status: Acute Assessment & Plan: Continue current regimen. Monitor for reflux, dysmotility; follow with rheumatology as needed Code(s): M34.9 - SYSTEMIC SCLEROSIS, UNSPECIFIED - Discharge Discharge Date: 02/25/25 Disposition: HOME HEALTH SERVICE Condition: Stable Prescriptions: New Sulfamethoxazole/Trimethoprim [Bactrim Ds Tablet] 1 each PEG BID 7 Days #14 tablet Changed ALPRAZolam [Alprazolam] 0.5 mg PEG BIDPRN PRN #0 PRN Reason: Anxiety Trazodone HCl 50 mg [Desyrel 50 mg] 50 mg PEG HS #0 Apixaban [Eliquis] 5 mg PEG BID #0 Famotidine 20 mg PEG BID #0 Atorvastatin Calcium [Lipitor] 80 mg PEG HS #0 Metoprolol Tartrate 25 mg [Lopressor 25MG Tab] 1 tab PEG BID #0 PARoxetine HCL [Paxil] 10 mg PEG QHS #0 Follow up with: DELPHINE PERRY DO [Primary Care Provider, [facility]] - 02/28/25 2:30 pm
[2025-02-25] MEDS: BACTRIM DS TABLET PO ONE (10:04)
[2025-02-25 11:56] VITALS: BP 116/57; PULSE 64; O2SAT 98
[2025-02-25] MEDS ORDERED: Macrobid 100MG Capsule PO SCH (17:00)
== END 2025-02-25 13:20 | disposition home health service (06) ==
LOC: ED 11:52 → MED SURG 15:50
PROVIDERS: ADMIT Internal Medicine; ATTEND Internal Medicine
DX: N39.0 Urinary tract infection, site not specified (principal); R42 Dizziness and giddiness; R74.01 Elevation of levels of liver transaminase levels; I48.91 Unspecified atrial fibrillation; F41.9 Anxiety disorder, unspecified; E78.5 Hyperlipidemia, unspecified; Z86.73 Personal history of transient ischemic attack (TIA), and cerebral infarction without residual deficits; R53.1 Weakness; M34.9 Systemic sclerosis, unspecified; Z79.01 Long term (current) use of anticoagulants; Z79.899 Other long term (current) drug therapy
CPT/HCPCS: 36415; 70450; 71045; 74230; 80053; 81001; 83605; 83735; 83880; 84443; 84484; 85025; 87077; 87086; 87186; 92611; 93005; 93041; 93268; 94760; 97110; 97161; 97165; 97530; 99285; G0378